=== PATIENT | male | born 1950 | race Caucasian/White ===

== ENCOUNTER 2020-04-17 14:22 | Inpatient (IN) | payer BC, MEDICARE ==
[~2020-04-17] VITALS: Ht 167 cm; Wt 104.5 kg
--- NOTE | 2020-04-17 15:19 | ED Dyspnea ---
General Stated Complaint: COVID +, SOB Source of Information: Patient Exam Limitations: No Limitations History of Present Illness Date Seen by Provider: Apr 17, 2020 Time Seen by Provider: 15:16 Initial Comments This is a 69-year-old male to ER by private vehicle with reports of being Covid positive and shortness of breath. This gentleman is otherwise healthy, he became symptomatic on 04/06/2020. He reports a persistent cough starting about 3 days ago. On arrival his oxygen saturation is 82% on room air. Timing/Duration: Increasing Severity: Moderate Prior Episodes/Possible Cause: No Prior Episodes Modifying Factors: Improves With Coughing Associated Symptoms: Denies Symptoms Allergies and Home Medications Patient Home Medication List Home Medication List Reviewed: Yes Review of Systems Review of Systems Constitutional: see HPI EENTM: see HPI Respiratory: see HPI, cough, short of breath Cardiovascular: no symptoms reported Genitourinary: no symptoms reported Musculoskeletal: no symptoms reported Skin: no symptoms reported Psychiatric/Neurological: No Symptoms Reported Endocrine: No Symptoms Reported Past Gtzmbdu-Tyvlov-Mbqlgg Hx Patient Social History Recent Foreign Travel: No Contact w/Someone Who Travel: No Physical Exam Vital Signs Vital Signs - First Documented 04/17/20 15:10 Temp 36.8 Pulse 94 Resp 36 B/P (MAP) 164/97 (119) Pulse Ox 94 O2 Delivery Nasal Cannula O2 Flow Rate 2.00 Capillary Refill : Height, Weight, BMI Height: '" Weight: lbs. oz. kg; BMI Method: General Appearance: No Apparent Distress, WD/WN, Other (Alert and oriented very pleasant. No distress despite oxygen saturation of 82% with good waveform) HEENT: PERRL/EOMI, TMs Normal Neck: Full Range of Motion, Normal Inspection Respiratory: No Accessory Muscle Use, No Respiratory Distress Cardiovascular: Regular Rate, Rhythm, Normal Peripheral Pulses Gastrointestinal: Normal Bowel Sounds, Non Tender, Soft Neurologic/Psychiatric: Alert, Oriented x3 Skin: Normal Color, Warm/Dry Progress/Results/Core Measures Results/Orders Lab Results Laboratory Tests Test 04/17/20 15:20 Range/Units White Blood Count 10.5 4.3-11.0 10^3/uL Red Blood Count 3.77 L 4.30-5.52 10^6/uL Hemoglobin 12.2 L 13.3-17.7 g/dL Hematocrit 36 L 40-54 % Mean Corpuscular Volume 94 80-99 fL Mean Corpuscular Hemoglobin 32 25-34 pg Mean Corpuscular Hemoglobin Concent 34 32-36 g/dL Red Cell Distribution Width 12.5 10.0-14.5 % Platelet Count 163 130-400 10^3/uL Mean Platelet Volume 10.3 9.0-12.2 fL Immature Granulocyte % (Auto) 1 % Neutrophils (%) (Auto) 83 H 42-75 % Lymphocytes (%) (Auto) 8 L 12-44 % Monocytes (%) (Auto) 9 0-12 % Eosinophils (%) (Auto) 0 0-10 % Basophils (%) (Auto) 0 0-10 % Neutrophils # (Auto) 8.7 H 1.8-7.8 10^3/uL Lymphocytes # (Auto) 0.8 L 1.0-4.0 10^3/uL Monocytes # (Auto) 0.9 0.0-1.0 10^3/uL Eosinophils # (Auto) 0.0 0.0-0.3 10^3/uL Basophils # (Auto) 0.0 0.0-0.1 10^3/uL Immature Granulocyte # (Auto) 0.1 0.0-0.1 10^3/uL D-Dimer 1.23 H 0.00-0.49 UG/ML Sodium Level 141 135-145 MMOL/L Potassium Level 3.6 3.6-5.0 MMOL/L Chloride Level 108 H 98-107 MMOL/L Carbon Dioxide Level 21 21-32 MMOL/L Anion Gap 12 5-14 MMOL/L Blood Urea Nitrogen 25 H 7-18 MG/DL Creatinine 1.47 H 0.60-1.30 MG/DL Estimat Glomerular Filtration Rate 47 BUN/Creatinine Ratio 17 Glucose Level 108 H 70-105 MG/DL Calcium Level 9.0 8.5-10.1 MG/DL Corrected Calcium 8.9 8.5-10.1 MG/DL Total Bilirubin 0.7 0.1-1.0 MG/DL Aspartate Amino Transf (AST/SGOT) 84 H 5-34 U/L Alanine Aminotransferase (ALT/SGPT) 56 H 0-55 U/L Alkaline Phosphatase 115 40-136 U/L C-Reactive Protein High Sensitivity 2.60 H 0.00-0.50 MG/DL Total Protein 7.9 6.4-8.2 GM/DL Albumin 4.1 3.2-4.5 GM/DL My Orders Orders - MATHEW TORRES APRN Cbc With Automated Diff (04/17/20 15:15) Comprehensive Metabolic Panel (04/17/20 15:15) Fibrin Degradation Products (04/17/20 15:15) Hs C Reactive Protein (04/17/20 15:15) Procalcitonin (Pct) (04/17/20 15:15) Chest 1 View, Ap/Pa Only (04/17/20 15:15) Ed Iv/Invasive Line Start (04/17/20 15:15) Manual Differential (04/17/20 15:20) Vital Signs/I&O 04/17/20 15:10 Temp 36.8 Pulse 94 Resp 36 B/P (MAP) 164/97 (119) Pulse Ox 94 O2 Delivery Nasal Cannula O2 Flow Rate 2.00 Diagnostic Imaging Diagonstic Imaging: CT Comments NAME: JULIETA HUFF [facility] REC#: [id number] PT STATUS: REG ER : 1950 PHYSICIAN: MATHEW TORRES APRN ADMIT DATE: 04/17/20/ER Draft Date of Exam:04/17/20 CHEST 1 VIEW, AP/PA ONLY INDICATION: Covid positive. TIME OF EXAM: 3:56 p.m. COMPARISON: No prior study is available for comparison. FINDINGS: The heart size is normal. The pulmonary vascularity is unremarkable. The lungs are clear. No infiltrate, effusion or pneumothorax is detected. IMPRESSION: No acute cardiopulmonary process is detected. Dictated on workstation # [id number] Dict: 04/17/20 1609 Trans: 04/17/20 1612 [facility] [id number] Interpreted by: ROSEY GUILLEN MD Electronically signed by: Departure Impression Primary Impression: Hypoxia Additional Impression: COVID-19 Disposition: ADMITTED INPATIENT Condition: Stable Admissions Decision to Admit Reason: Admit from ER (General) Decision to Admit/Date: Apr 17, 2020 Time/Decision to Admit Time: 15:20 MATHEW TORRES APRN Apr 17, 2020 15:19
[2020-04-17 15:37] LABS: BASOPHILS % (AUTO) 0 % (0-10); EOSINOPHILS % (AUTO) 0 % (0-10); HEMATOCRIT 36 % (40-54); HEMOGLOBIN 12.2 g/dL (13.3-17.7); LYMPHOCYTES # (AUTO) 0.8 10^3/uL (1.0-4.0); LYMPHOCYTES % (AUTO) 8 % (12-44); MEAN CORPUSCULAR HEMOGLOBIN 32 pg (25-34); MEAN CORPUSCULAR HGB CONC 34 g/dL (32-36); MEAN CORPUSCULAR VOLUME 94 fL (80-99); MEAN PLATELET VOLUME 10.3 fL (9.0-12.2); MONOCYTES # (AUTO) 0.9 10^3/uL (0.0-1.0); MONOCYTES % (AUTO) 9 % (0-12); NEUTROPHILS # (AUTO) 8.7 10^3/uL (1.8-7.8); NEUTROPHILS % (AUTO) 83 % (42-75); PLATELET COUNT 163 10^3/uL (130-400); WHITE BLOOD COUNT 10.5 10^3/uL (4.3-11.0)
[2020-04-17 15:50] LABS: ALBUMIN 4.1 GM/DL (3.2-4.5); POTASSIUM 3.6 MMOL/L (3.6-5.0)
[2020-04-17 15:53] LABS: TOTAL PROTEIN 7.9 GM/DL (6.4-8.2)
[2020-04-17 15:54] LABS: BILIRUBIN,TOTAL 0.7 MG/DL (0.1-1.0)
[2020-04-17 15:56] LABS: CREATININE SERUM 1.47 MG/DL (0.60-1.30)
--- NOTE | 2020-04-17 16:12 | Diagnostic Imaging Report ---
INDICATION: Covid positive. TIME OF EXAM: 3:56 p.m. COMPARISON: No prior study is available for comparison. FINDINGS: The heart size is normal. The pulmonary vascularity is unremarkable. The lungs are clear. No infiltrate, effusion or pneumothorax is detected. IMPRESSION: No acute cardiopulmonary process is detected. Dictated by: Dictated on workstation # [id number]
[2020-04-17 16:15] LABS: LYMPHOCYTES % (MANUAL) 9 %; MONOCYTES % (MANUAL) 8 %; NEUTROPHILS % (MANUAL) 83 %; PLATELET CLUMPS SLIGHT; RBC MORPH NORMAL
[2020-04-17 18:30] VITALS: BP 164/90
[2020-04-17 18:31] VITALS: BP 164/90
[2020-04-17] MEDS ORDERED: LACTATED RINGERS 0 ML IV ONE (18:36)
[2020-04-17] MEDS ORDERED: LACTATED RINGERS 1,000 ML IV ONE (19:47)
[2020-04-17] MEDS: inSUlin ASPART (NovoLOG) 1 UNIT/0.01 ML (CHARGE PER UNIT) SC SCH (20:01)
[2020-04-17 20:28] VITALS: BP 160/95
[2020-04-17] MEDS ORDERED: ACETAMINOPHEN 325 MG TABLET ONE (20:56)
[2020-04-17] MEDS ORDERED: ONDANSETRON 4 MG/2 ML (SDV) Z0FRAN IV PRN (21:00)
[2020-04-17] MEDS ORDERED: ANTACID SUSP 30 ML UDC (MYLANTA) PO PRN (21:00)
[2020-04-17] MEDS ORDERED: MILK OF MAGNESIA 400 MG/5 ML 30 ML UDC PO PRN (21:00)
[2020-04-17] MEDS: ACETAMINOPHEN 325 MG TABLET PO PRN (21:09)
[2020-04-17] MEDS: ENOXAPARIN 80 MG/0.8 ML (LOVENOX) SYR SC SCH (21:11)
[2020-04-17] MEDS ORDERED: LACTATED RINGERS 1,000 ML IV SCH (21:15)
[2020-04-17 23:19] VITALS: BP 112/71
[2020-04-18] MEDS ORDERED: LISI10TA2 PO (01:16)
[2020-04-18] MEDS ORDERED: SIMV10TA26 PO (01:16)
[2020-04-18] MEDS ORDERED: OMEP40CA27 PO (01:16)
[2020-04-18] MEDS ORDERED: LEVO50TA6 PO (01:16)
[2020-04-18] MEDS ORDERED: HYDR25TA4 PO (01:16)
[2020-04-18 03:28] VITALS: BP 131/78
[2020-04-18 04:16] LABS: BASOPHILS % (AUTO) 0 % (0-10); EOSINOPHILS % (AUTO) 0 % (0-10); HEMATOCRIT 31 % (40-54); HEMOGLOBIN 10.4 g/dL (13.3-17.7); LYMPHOCYTES # (AUTO) 0.9 10^3/uL (1.0-4.0); LYMPHOCYTES % (AUTO) 11 % (12-44); MEAN CORPUSCULAR HEMOGLOBIN 32 pg (25-34); MEAN CORPUSCULAR HGB CONC 34 g/dL (32-36); MEAN CORPUSCULAR VOLUME 95 fL (80-99); MEAN PLATELET VOLUME 10.6 fL (9.0-12.2); MONOCYTES # (AUTO) 0.6 10^3/uL (0.0-1.0); MONOCYTES % (AUTO) 8 % (0-12); NEUTROPHILS # (AUTO) 6.4 10^3/uL (1.8-7.8); NEUTROPHILS % (AUTO) 80 % (42-75); PLATELET COUNT 150 10^3/uL (130-400)
[2020-04-18 04:39] LABS: ALBUMIN 3.4 GM/DL (3.2-4.5)
[2020-04-18 04:41] LABS: CALCIUM 8.5 MG/DL (8.5-10.1)
[2020-04-18 04:42] LABS: TOTAL PROTEIN 6.7 GM/DL (6.4-8.2)
[2020-04-18 04:43] LABS: BILIRUBIN,TOTAL 0.6 MG/DL (0.1-1.0)
[2020-04-18 04:45] LABS: CREATININE SERUM 1.43 MG/DL (0.60-1.30)
[2020-04-18] MEDS: inSUlin ASPART (NovoLOG) 1 UNIT/0.01 ML (CHARGE PER UNIT) SC SCH ×4 (04:57→19:54)
[2020-04-18] MEDS: dexAMETHasone 6 MG TAB (DECADRON) PO SCH (05:54)
--- NOTE | 2020-04-18 06:00 | History & Physical-Hospitalist ---
History of Present Illness HPI/Chief Complaint Pt is a 69yoCM with a PMH of HTN, HLD, and hypothyroidism who presented to the ER due to dyspnea and known COVID19. He states that his symptoms started around 04/06 and he was actually feeling better a few days ago but then they worsened. He reports fevers, diarrhea, and SOB with cough. He denies any loss of taste/smell or nausea. He was found to be satting 82% of arrival. He reports feeling ok this morning. He was placed on prednisone and azithromycin on 04/15. Source: patient Date Seen 04/18/20 Time Seen by a Provider: 05:40 Attending Physician Rogelio Ponce MD PCP Shahana Pollard MD Referring Physician Date of Admission Apr 17, 2020 at 16:47 Home Medications & Allergies Home Medications Reviewed patient Home Medication Reconciliation performed by pharmacy medication reconciliations shop service technician and/or nursing. Patients Allergies have been reviewed. Allergies Allergies Coded Allergies Sulfa (Sulfonamide Antibiotics) (Verified Allergy, Unknown, 04/17/20) Past Futpcfz-Sslsfq-Yoopci Hx Past Med/Social Hx: Reviewed Nursing Past Med/Soc Hx Patient Social History Marrital Status: Alcohol Use: Denies Use Recreational Drug Use: No Smoking Status: Never a Smoker Recent Foreign Travel: No Contact w/other who traveled: No Recent Hopitalizations: No Recent Infectious Disease Expo: No Immunizations Up To Date Date of Influenza Vaccine: Feb 15, 2020 Past Medical History Cardiac: High Cholesterol, Hypertension Endocrine: Hypothyroidsim Review of Systems Constitutional: fever, malaise EENTM: no symptoms reported Respiratory: see HPI Cardiovascular: No chest pain, No edema, No palpitations Gastrointestinal: No abdominal pain; diarrhea; No nausea Genitourinary: no symptoms reported Musculoskeletal: no symptoms reported Skin: no symptoms reported Psychiatric/Neurological: No Symptoms Reported Physical Exam Physical Exam Vital Signs Vital Signs - First Documented Capillary Refill : NONE Height, Weight, BMI Height: '" Weight: lbs. oz. kg; 30.11 BMI Method: General Appearance: No Apparent Distress, WD/WN HEENT: PERRL/EOMI, Moist Mucous Membranes; No Scleral Icterus (L), No Scleral Icterus (R) Neck: Normal Inspection, Supple Respiratory: Lungs Clear, No Accessory Muscle Use; No Crackles; Other (on 2lpm NC) Cardiovascular: Regular Rate, Rhythm, No Murmur Gastrointestinal: Normal Bowel Sounds, Non Tender, Soft Extremity: Normal Capillary Refill, No Calf Tenderness, No Pedal Edema Neurologic/Psychiatric: Alert, Oriented x3 Skin: Normal Color, Warm/Dry Results Results/Procedures Labs Laboratory Tests 04/17/20 15:20 04/18/20 03:23 Patient resulted labs reviewed. Imaging: Reviewed Imaging Report Imaging [facility] [place] NAME: JULIETA HUFF [facility] REC#: [id number] PT STATUS: REG ER : 1950 PHYSICIAN: MATHEW TORRES APRN ADMIT DATE: 04/17/20/ER Signed Date of Exam:04/17/20 CHEST 1 VIEW, AP/PA ONLY INDICATION: Covid positive. TIME OF EXAM: 3:56 p.m. COMPARISON: No prior study is available for comparison. FINDINGS: The heart size is normal. The pulmonary vascularity is unremarkable. The lungs are clear. No infiltrate, effusion or pneumothorax is detected. IMPRESSION: No acute cardiopulmonary process is detected. Dictated by: Dictated on workstation # [id number] Dict: 04/17/20 1609 Trans: 04/17/[address] [facility] [id number] Interpreted by: ROSEY GUILLEN MD Electronically signed by: ROSEY GUILLEN MD 04/17/20 1709 Assessment/Plan Admission Diagnosis Acute hypoxic respiratory failure due to COVID19 Admission Status: Inpatient Order (span 2 midnights) Reason for Inpatient Admission: see below Assessment and Plan Acute hypoxic respiratory failure due to COVID19 Outside of window for remdesivir Continue decadron CP ordered by ER, EUA status discussed MAT protocol Lovenox Tylenol prn fever IS Transaminitis Likely due to COVID Trend HTN Creatine 1.4 with BUn of 27 Unsure of baseline BP well controlled so hold home lisinopril and hctz for now HLD No acute needs, resume home meds Hypothyroidism Continue home meds DVT ppx: Lovenox Diagnosis/Problems Diagnosis/Problems (1) Acute respiratory failure (2) HLD (hyperlipidemia) (3) Hyperglycemia (4) Hypothyroidism (5) Transaminitis (6) COVID-19 Status: Acute Clinical Quality Measures DVT/VTE Risk/Contraindication: Risk Factor Score Per Nursin RFS Level Per Nursing on Admit: 2=Moderate ROGELIO PONCE MD Apr 18, 2020 06:00
[2020-04-18 07:48] VITALS: BP 162/90
[2020-04-18] MEDS: LEVOTHYROXINE 50 MCG (LEVOTHROID) TAB PO SCH (07:55)
[2020-04-18] MEDS: ENOXAPARIN 80 MG/0.8 ML (LOVENOX) SYR SC SCH ×2 (07:55→20:27)
[2020-04-18] MEDS ORDERED: SIMvastatin 10 MG (ZOCOR) TAB PO SCH (09:00)
[2020-04-18 10:31] VITALS: BP 162/90
[2020-04-18 12:00] VITALS: BP 145/85
[2020-04-18 15:48] VITALS: BP 138/83
[2020-04-18 19:07] VITALS: BP 144/81
[2020-04-19] MEDS: RT-ALBUTEROL INHALER HFA (VENTOLIN HFA) 18 GM IH PRN ×2 (00:01→07:12)
[2020-04-19 00:02] VITALS: BP 157/87
[2020-04-19] MEDS: inSUlin ASPART (NovoLOG) 1 UNIT/0.01 ML (CHARGE PER UNIT) SC SCH ×4 (05:10→21:07)
[2020-04-19] MEDS: dexAMETHasone 6 MG TAB (DECADRON) PO SCH (05:58)
[2020-04-19 07:32] LABS: HEMOGLOBIN 10.1 g/dL (13.3-17.7); MEAN PLATELET VOLUME 11.1 fL (9.0-12.2)
[2020-04-19 07:45] VITALS: BP 108/67
[2020-04-19 07:53] LABS: ALBUMIN 3.5 GM/DL (3.2-4.5); POTASSIUM 3.7 MMOL/L (3.6-5.0)
[2020-04-19 07:54] LABS: CALCIUM 8.7 MG/DL (8.5-10.1)
[2020-04-19 07:56] LABS: TOTAL PROTEIN 6.9 GM/DL (6.4-8.2)
[2020-04-19 07:57] LABS: BILIRUBIN,TOTAL 0.5 MG/DL (0.1-1.0)
[2020-04-19 07:59] LABS: CREATININE SERUM 1.23 MG/DL (0.60-1.30)
[2020-04-19] MEDS: LEVOTHYROXINE 50 MCG (LEVOTHROID) TAB PO SCH (08:14)
[2020-04-19] MEDS: ENOXAPARIN 80 MG/0.8 ML (LOVENOX) SYR SC SCH ×2 (08:14→22:02)
[2020-04-19 16:21] VITALS: BP 141/79
--- NOTE | 2020-04-19 16:31 | Progress Note - Hospitalist ---
Subjective HPI/CC On Admission Date Seen by Provider: Apr 19, 2020 Time Seen by Provider: 11:20 Pt is a 69yoCM with a PMH of HTN, HLD, and hypothyroidism who presented to the ER due to dyspnea and known COVID19. He states that his symptoms started around 04/06 and he was actually feeling better a few days ago but then they worsened. He reports fevers, diarrhea, and SOB with cough. He denies any loss of taste/smell or nausea. He was found to be satting 82% of arrival. He reports feeling ok this morning. He was placed on prednisone and azithromycin on 04/15. Subjective/Events-last exam he is feeling a bit better today. He is still short of breath. He still has a lot of a cough. He is not having any fevers. He has not had much of an appetite. Objective Exam Vital Signs Vital Signs Date Time Temp Pulse Resp B/P (MAP) Pulse Ox O2 Delivery O2 Flow Rate FiO2 04/19/20 16:21 36.9 74 20 141/79 (99) 94 Nasal Cannula 4.00 Capillary Refill : NONE General Appearance: No Apparent Distress, Obese Respiratory: Lungs Clear, Normal Breath Sounds, No Respiratory Distress Cardiovascular: Regular Rate, Rhythm, No Edema, No Murmur Gastrointestinal: Normal Bowel Sounds, Non Tender, Soft Extremity: Normal Inspection, Non Tender, No Pedal Edema Neurologic/Psychiatric: Alert, Oriented x3, No Motor/Sensory Deficits, Normal Mood/Affect Skin: Normal Color, Warm/Dry Results/Procedures Lab Laboratory Tests 04/19/20 06:29 Patient resulted labs reviewed. Imaging: Reviewed Imaging Report Assessment/Plan Assessment and Plan Assess & Plan/Chief Complaint Acute respiratory failure due to COVID-19 Continue decadron Awaiting convalescent plasma MAT protocol Lovenox IS Elevated LFTs Likely due to COVID Improving LIMA vs CKD Creatinine 1.2, improving, unknown baseline HTN BP well controlled, hold home meds HLD Hypothyroidism Continue home meds DVT ppx: Lovenox Diagnosis/Problems Diagnosis/Problems (1) Acute respiratory failure due to COVID-19 Status: Acute (2) Elevated LFTs Status: Acute (3) HTN (hypertension) Status: Chronic Qualifiers: Hypertension type: essential hypertension Qualified Codes: I10 - Essential (primary) hypertension (4) CKD (chronic kidney disease) Status: Chronic (5) Obesity Status: Chronic Clinical Quality Measures DVT/VTE Risk/Contraindication: Risk Factor Score Per Nursin RFS Level Per Nursing on Admit: 2=Moderate DEQUAN OVERTON MD Apr 19, 2020 16:31
[2020-04-19] MEDS: BENZONATATE 100 MG (TESSALON) CAPSULE PO PRN (22:01)
[2020-04-20] VITALS: BP 131/78
[2020-04-20] MEDS: inSUlin ASPART (NovoLOG) 1 UNIT/0.01 ML (CHARGE PER UNIT) SC SCH ×4 (05:52→20:00)
[2020-04-20] MEDS: dexAMETHasone 6 MG TAB (DECADRON) PO SCH (06:33)
[2020-04-20 08:00] VITALS: BP 145/73
[2020-04-20] MEDS: ENOXAPARIN 80 MG/0.8 ML (LOVENOX) SYR SC SCH ×2 (09:30→20:38)
[2020-04-20] MEDS: LEVOTHYROXINE 50 MCG (LEVOTHROID) TAB PO SCH (09:30)
[2020-04-20] MEDS ORDERED: ASPI-1238 PO (11:41)
[2020-04-20] MEDS ORDERED: AZIT500T9 PO (11:41)
[2020-04-20] MEDS ORDERED: ASCO500T17 PO (11:41)
[2020-04-20] MEDS ORDERED: PRD10T PO (11:41)
[2020-04-20] MEDS ORDERED: CHOL200074 PO (11:41)
--- NOTE | 2020-04-20 11:42 | NUR ---
SPOKE WITH THE PT (CALLED HIS CELL) AND WENT THRU THE EXT MED HISTORY TO COMPLETE THE MED REC ACCORDING TO THE PT ON 04-15-2020 HE PICKED UP PREDNISONE 10MG AND AZITHROMYCIN 500MG AND ONLY TOOK 2 DAYS WORTH BEFORE BEING ADMITTED. PREDNISONE 10MG TAPER DOSE: 4 TABS DAILY X 3 DAYS, 3 TABS DAILY X 3 DAYS, THEN 1 TAB DAILY X 3 DAYS OTC MEDS: VIT C VIT D3 ASPIRIN 81MG
[2020-04-20 15:26] VITALS: BP 136/81
[2020-04-20] MEDS: BENZONATATE 100 MG (TESSALON) CAPSULE PO PRN (15:33)
--- NOTE | 2020-04-20 16:01 | Progress Note - Hospitalist ---
Subjective HPI/CC On Admission Date Seen by Provider: Apr 20, 2020 Time Seen by Provider: 11:00 Pt is a 69yoCM with a PMH of HTN, HLD, and hypothyroidism who presented to the ER due to dyspnea and known COVID19. He states that his symptoms started around 04/06 and he was actually feeling better a few days ago but then they worsened. He reports fevers, diarrhea, and SOB with cough. He denies any loss of taste/smell or nausea. He was found to be satting 82% of arrival. He reports feeling ok this morning. He was placed on prednisone and azithromycin on 04/15. Subjective/Events-last exam He is doing better today. He did walk to the bathroom without his oxygen and got very short of breath and dizzy. He thinks his appetite is returning. He has been eating and drinking. He has no other complaints or concerns. Objective Exam Vital Signs Vital Signs Date Time Temp Pulse Resp B/P (MAP) Pulse Ox O2 Delivery O2 Flow Rate FiO2 04/20/20 15:26 36.3 66 18 136/81 (99) 95 Nasal Cannula 4.00 Capillary Refill : NONE General Appearance: No Apparent Distress, Obese Respiratory: Lungs Clear, Normal Breath Sounds, No Respiratory Distress Cardiovascular: Regular Rate, Rhythm, No Edema, No Murmur Gastrointestinal: Normal Bowel Sounds, Non Tender, Soft Extremity: Normal Inspection, Non Tender, No Pedal Edema Neurologic/Psychiatric: Alert, Oriented x3, No Motor/Sensory Deficits, Normal Mood/Affect Skin: Normal Color, Warm/Dry Results/Procedures Lab Patient resulted labs reviewed. Imaging: Reviewed Imaging Report Assessment/Plan Assessment and Plan Assess & Plan/Chief Complaint Acute respiratory failure due to COVID-19 Continue decadron Awaiting convalescent plasma MAT protocol Lovenox IS Elevated LFTs Likely due to COVID Improving LIMA vs CKD Creatinine improving, unknown baseline HTN BP well controlled, hold home meds HLD Hypothyroidism Continue home meds DVT ppx: Lovenox Diagnosis/Problems Diagnosis/Problems (1) Acute respiratory failure due to COVID-19 Status: Acute (2) Elevated LFTs Status: Acute (3) HTN (hypertension) Status: Chronic Qualifiers: Hypertension type: essential hypertension Qualified Codes: I10 - Essential (primary) hypertension (4) CKD (chronic kidney disease) Status: Chronic (5) Obesity Status: Chronic Clinical Quality Measures DVT/VTE Risk/Contraindication: Risk Factor Score Per Nursin RFS Level Per Nursing on Admit: 2=Moderate DEQUAN OVERTON MD Apr 20, 2020 16:00
[2020-04-21 00:05] VITALS: BP 139/79
[2020-04-21] MEDS: dexAMETHasone 6 MG TAB (DECADRON) PO SCH (05:35)
[2020-04-21] MEDS: inSUlin ASPART (NovoLOG) 1 UNIT/0.01 ML (CHARGE PER UNIT) SC SCH ×4 (06:16→20:04)
[2020-04-21 06:43] LABS: BASOPHILS % (AUTO) 0 % (0-10); EOSINOPHILS % (AUTO) 0 % (0-10); HEMATOCRIT 31 % (40-54); HEMOGLOBIN 10.4 g/dL (13.3-17.7); LYMPHOCYTES # (AUTO) 0.4 10^3/uL (1.0-4.0); LYMPHOCYTES % (AUTO) 4 % (12-44); MEAN CORPUSCULAR HEMOGLOBIN 32 pg (25-34); MEAN CORPUSCULAR HGB CONC 34 g/dL (32-36); MEAN CORPUSCULAR VOLUME 94 fL (80-99); MEAN PLATELET VOLUME 10.4 fL (9.0-12.2); MONOCYTES # (AUTO) 0.7 10^3/uL (0.0-1.0); MONOCYTES % (AUTO) 7 % (0-12); NEUTROPHILS # (AUTO) 8.2 10^3/uL (1.8-7.8); NEUTROPHILS % (AUTO) 88 % (42-75); PLATELET COUNT 196 10^3/uL (130-400); WHITE BLOOD COUNT 9.4 10^3/uL (4.3-11.0)
[2020-04-21 06:59] LABS: ALBUMIN 3.3 GM/DL (3.2-4.5); POTASSIUM 3.9 MMOL/L (3.6-5.0)
[2020-04-21 07:00] LABS: CALCIUM 8.4 MG/DL (8.5-10.1)
[2020-04-21 07:01] LABS: TOTAL PROTEIN 6.7 GM/DL (6.4-8.2)
[2020-04-21 07:03] LABS: BILIRUBIN,TOTAL 0.5 MG/DL (0.1-1.0)
[2020-04-21 07:05] LABS: CREATININE SERUM 1.32 MG/DL (0.60-1.30)
[2020-04-21 08:00] VITALS: BP 141/84
[2020-04-21] MEDS: LEVOTHYROXINE 50 MCG (LEVOTHROID) TAB PO SCH (09:21)
[2020-04-21] MEDS: ENOXAPARIN 80 MG/0.8 ML (LOVENOX) SYR SC SCH ×2 (09:21→20:54)
[2020-04-21] MEDS: BENZONATATE 100 MG (TESSALON) CAPSULE PO PRN (09:24)
--- NOTE | 2020-04-21 13:36 | Occupational Therapy Eval ---
OT Evaluation-General/PLF Medical Diagnosis Admission Date Apr 17, 2020 at 16:47 Medical Diagnosis: COVID+, hypoxia Onset Date: Apr 06, 2020 Therapy Diagnosis Therapy Diagnosis: weakness, decreased functional endurance Precautions Precautions/Isolations: Airborne Isolation, Contact Isolation, Droplet Isolation Referral Physician: Eneida Velásquez Reason: Evaluation/Treatment Medical History Pertinent Medical History: HTN, Hypothroidism Additional Medical History HTN, HLD, and hypothyroidism Current History Began having COVID symptoms 04/06/2020. Social History Home: Multilevel Current Living Status: Spouse ADL-Prior Level of Function SCALE: Activities may be completed with or without assistive devices. 9-Pdiciiueuv-pahkqbn completes the activity by him/herself with no assistance from a helper. 5-Set-up or Clean-up Assistance-helper sets up or cleans up; patient completes activity. Briggs assists only prior to or following the activity. 4-Supervision or Touching Assistance-helper provides verbal cues and/or touc arthur/steadying and/or contact guard assistance as patient completes activity. Assistance may be provided throughout the activity or intermittently. 3-Partial/Moderate Assistance-helper does LESS THAN HALF the effort. Briggs lifts, holds or supports trunk or limbs, but provides less than half the effort. 2-Substantial/Maximal Assistance-helper does MORE THAN HALF the effort. Briggs lifts or holds trunk or limbs and provides more than half the effort. 6-Ulxkiqsjb-vghgzp does ALL the effort. Patient does none of the effort to complete the activity. Or, the assistance of 2 or more helpers is required for the patient to complete the activity. If activity was not attempted, code reason: 7-Patient Refused. 9-Not Applicable-not attempted and the patient did not perform the activity before the current illness, exacerbation or injury. 10-Not Attempted due to Environmental Limitations-(lack of equipment, weather restraints, etc.). 88-Not Attempted due to Medical Conditions or Safety Concerns. ADL PLOF Comments Pt reports being independent with all ADLS and functional mobility at PLOF, no AD/AE Self Care: Independent Functional Cognition: Independent DME/Equipment: Bath Chair, Shower OT Current Status Subjective Pt agreeable to OT evaluation and tx. Mental Status/Objective Patient Orientation: Person, Place, Time, Situation Attachments: Oxygen Current Upper Extremity ROM WFL BUEs Upper Extremity Coordination WFL BUEs Upper Extremity Sensation WFL BUEs ADL-Treatment On/Off Footwear (QC): 6 Other Treatments Pt laying in bed, OT educated pt on purpose and benefit of OT, he verbalized und erstanding. Pt provided information about PLOF and home set up and participates in UE screening. Pt transfers supine to sit EOB, then ambulates around room to recliner, no AD, SBA. Pt able to don shoes independently. Pt declined toileting at this time. OT educated pt on performing UE exercises, increasing reps as tolerated for the following: shoulder flexion, elbow flexion/extension, wrist flexion/extension, wrist ulnar/radial deviation, and finger flexion/extension. Pt demo'd and verbalized understanding.Post tx, seated in recliner, call light in reach and all needs met. Education OT Patient Education: Correct positioning, Modified ADL techniques, Progress toward Goal/Update tx plan, Purpose of tx/functional activities, Rehab process Teaching Recipient: Patient Teaching Methods: Demonstration, Discussion Response to Teaching: Verbalize Understanding, Return Demonstration OT Gravel Inspector Goals Gravel Inspector Goals Time Frame: Apr 30, 2020 Eating (QC): 6 Oral Hygiene (QC): 6 Toileting Hygiene (QC): 6 Shower/Bathe Self (QC): 6 Upper Body Dressing (QC): 6 Lower Body Dressing (QC): 6 Additional Goals: 1-Demonstrate ADL Tasks, 2-Verbalize Understanding, 3- ImproveStrength/Gayle 1=Demonstrate adherence to instructed precautions during ADL tasks. 2=Patient will verbalize/demonstrate understanding of assistive devices/modifications for ADL. 3=Patient will improve strength/tolerance for activity to enable patient to perform ADL's. OT Education/Plan Problem List/Assessment Assessment: Decreased Activ Tolerance, Decreased UE Strength, Impaired I ADL's Pt would benefit from short term skilled OT services in order to increase functional endurance and strength to maximize LOF for safe return home. Discharge Recommendations Plan/Recommendations: Continue POC Therapy Discharge Recommendati: Home & Family Treatment Plan/Plan of Care Patient would benefit from OT for education, treatment and training to promote independence in ADL's, mobility, safety and/or upper extremity function for ADL's. Plan of Care: ADL Retraining, Functional Mobility, UE Funct Exercise/Act Treatment Duration: Apr 30, 2020 Frequency: 5 times per week Estimated Hrs Per Day: .25 hour per day Agreement: Yes Rehab Potential: Good Time/GCodes Start Time: 11:57 Stop Time: 12:09 Total Time Billed (hr/min): 12 Billed Treatment Time 1, KRYSTAL LUBIN OT Apr 21, 2020 13:36
--- NOTE | 2020-04-21 13:59 | Progress Note - Hospitalist ---
Subjective HPI/CC On Admission Date Seen by Provider: Apr 21, 2020 Time Seen by Provider: 10:50 Pt is a 69yoCM with a PMH of HTN, HLD, and hypothyroidism who presented to the ER due to dyspnea and known COVID19. He states that his symptoms started around 04/06 and he was actually feeling better a few days ago but then they worsened. He reports fevers, diarrhea, and SOB with cough. He denies any loss of taste/smell or nausea. He was found to be satting 82% of arrival. He reports feeling ok this morning. He was placed on prednisone and azithromycin on 04/15. Subjective/Events-last exam He is feeling about the same. He did not sleep well last night. He still gets short of breath with activity. He denies fevers. Objective Exam Vital Signs Vital Signs Date Time Temp Pulse Resp B/P (MAP) Pulse Ox O2 Delivery O2 Flow Rate FiO2 04/21/20 08:00 36.6 55 18 141/84 (103) 93 Nasal Cannula 4.00 Capillary Refill : NONE General Appearance: No Apparent Distress, WD/WN Respiratory: Lungs Clear, Normal Breath Sounds, No Respiratory Distress Cardiovascular: Regular Rate, Rhythm, No Edema, No Murmur Gastrointestinal: Normal Bowel Sounds, Non Tender, Soft Extremity: Normal Inspection, Non Tender, No Pedal Edema Neurologic/Psychiatric: Alert, Oriented x3, No Motor/Sensory Deficits, Normal Mood/Affect Skin: Normal Color, Warm/Dry Results/Procedures Lab Laboratory Tests 04/21/20 06:21 Patient resulted labs reviewed. Imaging: Reviewed Imaging Report Assessment/Plan Assessment and Plan Assess & Plan/Chief Complaint Acute respiratory failure due to COVID-19 Continue decadron Awaiting convalescent plasma MAT protocol Lovenox IS Elevated LFTs Likely due to COVID Monitor CKD Creatinine stable, unknown baseline HTN BP well controlled, hold home meds HLD Hypothyroidism Continue home meds DVT ppx: Lovenox Diagnosis/Problems Diagnosis/Problems (1) Acute respiratory failure due to COVID-19 Status: Acute (2) Elevated LFTs Status: Acute (3) HTN (hypertension) Status: Chronic Qualifiers: Hypertension type: essential hypertension Qualified Codes: I10 - Essential (primary) hypertension (4) CKD (chronic kidney disease) Status: Chronic (5) Obesity Status: Chronic Clinical Quality Measures DVT/VTE Risk/Contraindication: Risk Factor Score Per Nursin RFS Level Per Nursing on Admit: 2=Moderate DEQUAN OVERTON MD Apr 21, 2020 13:59
--- NOTE | 2020-04-21 14:50 | Physical Therapy Evaluation ---
PT Evaluation-General Medical Diagnosis Admission Date Apr 17, 2020 at 16:47 Medical Diagnosis: COVID+, hypoxia Onset Date: Apr 06, 2020 Therapy Diagnosis Therapy Diagnosis: impaired mobility, endurance Precautions Precautions/Isolations: Airborne Isolation, Contact Isolation, Droplet Isolation Referral Physician: Eneida Medical History Pertinent Medical History: HTN, Hypothroidism Reviewed History: Yes Social History Home: [facility] Current Living Status: Spouse Entry Into Home: Stairs With Railing PT Steps Into Home: 4 has a bedroom upstairs Prior Prior Level of Function SCALE: Activities may be completed with or without assistive devices. 2-Qyxxeepiva-udgurev completes the activity by him/herself with no assistance from a helper. 5-Set-up or Clean-up Assistance-helper sets up or cleans up; patient completes activity. Roberta assists only prior to or following the activity. 4-Supervision or Touching Assistance-helper provides verbal cues and/or touching/steadying and/or contact guard assistance as patient completes activity. Assistance may be provided throughout the activity or intermittently. 3-Partial/Moderate Assistance-helper does LESS THAN HALF the effort. Roberta lifts, holds or supports trunk or limbs, but provides less than half the effort. 2-Substantial/Maximal Assistance-helper does MORE THAN HALF the effort. Roberta lifts or holds trunk or limbs and provides more than half the effort. 5-Yrbkmuoau-fufggr does ALL the effort. Patient does none of the effort to complete the activity. Or, the assistance of 2 or more helpers is required for the patient to complete the activity. If activity was not attempted, code reason: 7-Patient Refused. 9-Not Applicable-not attempted and the patient did not perform the activity before the current illness, exacerbation or injury. 10-Not Attempted due to Environmental Limitations-(lack of equipment, weather restraints, etc.). 88-Not Attempted due to Medical Conditions or Safety Concerns. Bed Mobility: 6 Transfers (B,C,W/C): 6 Gait: 6 Stairs: 6 Indoor Mobility (Ambulation): Independent Stairs: Independent PT Evaluation-Current Subjective Patient in bed pre tx, agrees to PT, has no complaints of pain at rest. Pt/Family Goals to be independent at home Objective Patient Orientation: Person, Place, Situation Attachments: Oxygen ROM/Strength ROM Lower Extremities WNL Strength Lower Extremities 5/5 gross BLE Sensory Vision: Wears Glasses Hearing: Sensation Right Lower Extremit: Intact Sensation Left Lower Extremity: Intact Transfers Roll Left to Right (QC): 6 Sit to Lying (QC): 6 Lying to Sitting/Side of Bed(Q: 6 Sit to Stand (QC): 4 Chair/Ygo-ut-Vowem Xfer(QC): 4 Gait Does the Patient Walk?: Yes Mode of Locomotion: Walk Anticipated Mode of Locomotion: Walk Walk 10 feet (QC): 4 Distance: 40' Gait Assistive Device: None Comments/Gait Description SBA, ambulation appears steady but patient says he feels slightly unsteady, SOB after ambulation but recovers quickly after sitting Balance Sitting Static: Normal Sitting Dynamic: Normal Standing Static: Normal Standing Dynamic: Good Assessment/Needs Patient has impaired mobility, endurance. Patient in bed post tx with nurse call, phone, tray, all needs met. Patient encouraged to get up on his own and ambulate in his room many times a day to keep his strength up. Rehab Potential: Fair PT Jail Goals Jail Goals PT Jail Goals Time Frame: Apr 28, 2020 Roll Left & Right (QC): 6 Sit to Lying (QC): 6 Lying-Sitting on Side/Bed(QC): 6 Sit to Stand (QC): 6 Chair/Dkr-al-Kuokx Xfer(QC): 6 Walk 10 feet (QC): 6 Walk 50ft with 2 Turns (QC): 6 Walk 150 ft (QC): 6 PT Plan Problem List Problem List: Activity Tolerance, Functional Strength, Safety, Balance, Gait, Transfer Treatment/Plan Treatment Plan: Continue Plan of Care Treatment Plan: Education, Functional Activity Gayle, Functional Strength, Gait, Safety, Therapeutic Exercise, Transfers Treatment Duration: Apr 28, 2020 Frequency: 6 times per week Estimated Hrs Per Day: .25 hour per day Patient and/or Family Agrees t: Yes Safety Risks/Education Patient Education: Gait Training, Transfer Techniques, Correct Positioning, Safety Issues Teaching Recipient: Patient Teaching Methods: Demonstration, Discussion Response to Teaching: Reinforcement Needed Discharge Recommendations Plan Patient will perform bed mobility and transfer training, balance and endurance training, functional strengthening, stair training, gait training, and education, to improve functional mobility and independence at home. Therapy Discharge Recommendati: Home & Family Time/GCodes Time In: 1415 Time Out: 142 Total Billed Treatment Time: 10 Total Billed Treatment 1 visit CHELA FRANCIS PT Apr 21, 2020 14:50
--- NOTE | 2020-04-21 15:20 | NUR ---
CM/SS: Visited with pt's spouse Yoselin in room (in Full PPE) due to COVID + status related to pts discharge plan. Pt is hard of hearing and this worker wanted to set up oxygen and home care for both at the same agencies and talked with spouse to determine location. Plan: Pt will be discharged to home possibly tomorrow. Spouse desires home care services. She has requested any local oxygen company except [facility]. Summary: Pt is awaiting a home oxygen study and will likely discharge on tomorrow. Spouse would like [facility] - as they have a daughter that works there, and no preference on the oxygen company, based on availability. Pt does have a ride home. This worker will follow up with Yoselin, spouse once more is known on the discharge plan.
--- NOTE | 2020-04-21 15:25 | NUR ---
PT UNABLE TO TOLERATE BEING ON RA OR STANDING UP/WALKING VERY WELL. TOOK A LONG TIME TO RECOVER FROM BOTH. PT NEEDS 4L VIA NC CONTINUOUSLY. Addendum: 04/21/20 at 1526 by CHAVA CHRISTIAN RT Amended: Links added.
[2020-04-21] MEDS ORDERED: PANTOPRAZOLE 40 MG (PROTONIX) TAB PO ONE (15:30)
[2020-04-21 16:27] VITALS: BP 165/84
[2020-04-21] MEDS ORDERED: guaiFENesin/DM (ROBITUSSIN DM) 10 ML UDC ONE (19:50)
[2020-04-21] MEDS: MELATONIN 3 MG TABLET PO PRN (20:55)
[2020-04-21] MEDS: guaiFENesin/DM (ROBITUSSIN DM) 10 ML UDC PO PRN (20:55)
[2020-04-21 23:50] VITALS: BP 144/68
[2020-04-22] MEDS: inSUlin ASPART (NovoLOG) 1 UNIT/0.01 ML (CHARGE PER UNIT) SC SCH ×4 (05:29→20:31)
[2020-04-22] MEDS: dexAMETHasone 6 MG TAB (DECADRON) PO SCH (05:44)
[2020-04-22 06:51] LABS: ALBUMIN 3.4 GM/DL (3.2-4.5); POTASSIUM 4.1 MMOL/L (3.6-5.0)
[2020-04-22 06:53] LABS: CALCIUM 8.6 MG/DL (8.5-10.1)
[2020-04-22 06:54] LABS: TOTAL PROTEIN 6.9 GM/DL (6.4-8.2)
[2020-04-22 06:55] LABS: BILIRUBIN,TOTAL 0.5 MG/DL (0.1-1.0)
[2020-04-22 06:57] LABS: CREATININE SERUM 1.32 MG/DL (0.60-1.30)
[2020-04-22 07:46] VITALS: BP 160/76
[2020-04-22] MEDS: PANTOPRAZOLE 40 MG (PROTONIX) TAB PO SCH (09:07)
[2020-04-22] MEDS: LEVOTHYROXINE 50 MCG (LEVOTHROID) TAB PO SCH (09:07)
[2020-04-22] MEDS: ENOXAPARIN 80 MG/0.8 ML (LOVENOX) SYR SC SCH ×2 (09:08→20:56)
--- NOTE | 2020-04-22 09:30 | NUR ---
[facility] NOTIFIED THIS RN OF PT OXYGEN 82% AFTER AMBULATING TO BATHROOM, PT SUSTAINING IN THE 80'S. RT BRINGING VAPOTHERM. PT WAS PLACED ON 10L HF UNTIL RT ARRIVES.
--- NOTE | 2020-04-22 09:50 | NUR ---
PT SP02 100% ON 40L 100% . RT TO WEAN PT DOWN.
--- NOTE | 2020-04-22 10:55 | NUR ---
CM/SS: Oxygen order faxed to [facility] in [place], [place]. phone [phone] fax [phone] They are able to deliver tank to the hospital prior to discharge.
[2020-04-22 11:07] VITALS: BP 138/78
--- NOTE | 2020-04-22 11:08 | NUR ---
CM/SS: Call to [facility] [phone] - to put the oxygen order on hold. Pt will not be leaving today due to changes in oxygen requirement.
--- NOTE | 2020-04-22 13:39 | Physical Therapy Daily Note ---
PT Daily Note-Current Subjective Patient in bed pre tx, agrees to PT, has no complaints of pain but says his breathing is worse. Appearance Patient in bed post tx with nurse call, OT in room to continue with patient. Mental Status Patient Orientation: Person, Place, Situation Attachments: Oxygen, IV vapotherm Transfers SCALE: Activities may be completed with or without assistive devices. 7-Rihrxwurdi-cobxksy completes the activity by him/herself with no assistance from a helper. 5-Set-up or Clean-up Assistance-helper sets up or cleans up; patient completes activity. Cordell assists only prior to or following the activity. 4-Supervision or Touching Assistance-helper provides verbal cues and/or touching/steadying and/or contact guard assistance as patient completes activity. Assistance may be provided throughout the activity or intermittently. 3-Partial/Moderate Assistance-helper does LESS THAN HALF the effort. Cordell lifts, holds or supports trunk or limbs, but provides less than half the effort. 2-Substantial/Maximal Assistance-helper does MORE THAN HALF the effort. Cordell lifts or holds trunk or limbs and provides more than half the effort. 4-Toqnzmywi-waqcnk does ALL the effort. Patient does none of the effort to complete the activity. Or, the assistance of 2 or more helpers is required for the patient to complete the activity. If activity was not attempted, code reason: 7-Patient Refused. 9-Not Applicable-not attempted and the patient did not perform the activity before the current illness, exacerbation or injury. 10-Not Attempted due to Environmental Limitations-(lack of equipment, weather restraints, etc.). 88-Not Attempted due to Medical Conditions or Safety Concerns. Roll Left & Right (QC): 6 Sit to Lying (QC): 6 Lying to Sitting/Side of Bed(Q: 6 Sit to Stand (QC): 6 Gait Training Distance: 20'x2 Walk 10 feet (QC): 4 Gait Assistive Device: None SBA, very SOB after ambulating, sits and performed purse lip breathing and it takes a long time to get back to 90% from about 85%. 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 Goals PT Penitentiary Goals Time Frame: Apr 28, 2020 Roll Left & Right (QC): 6 Sit to Lying (QC): 6 Lying-Sitting on Side/Bed(QC): 6 Sit to Stand (QC): 6 Chair/Msb-oe-Npmcm Xfer(QC): 6 Walk 10 feet (QC): 6 Walk 50ft with 2 Turns (QC): 6 Walk 150 ft (QC): 6 PT Plan Problem List Problem List: Activity Tolerance, Functional Strength, Safety, Balance, Gait, Transfer, Bed Mobility, ROM Treatment/Plan Treatment Plan: Continue Plan of Care Treatment Plan: Education, Functional Activity Gayle, Functional Strength, Gait, Safety, Therapeutic Exercise, Transfers Treatment Duration: Apr 28, 2020 Frequency: 6 times per week Estimated Hrs Per Day: .25 hour per day Patient and/or Family Agrees t: Yes Safety Risks/Education Patient Education: Gait Training, Transfer Techniques, Correct Positioning, Safety Issues Teaching Recipient: Patient Teaching Methods: Demonstration, Discussion Response to Teaching: Reinforcement Needed Time/GCodes Time In: 1305 Time Out: 1315 Total Billed Treatment Time: 10 Total Billed Treatment 1 visit FA CHELA RODRIGUEZ PT Apr 22, 2020 13:39
--- NOTE | 2020-04-22 13:50 | Progress Note - Hospitalist ---
Subjective HPI/CC On Admission Date Seen by Provider: Apr 22, 2020 Time Seen by Provider: 10:40 Pt is a 69yoCM with a PMH of HTN, HLD, and hypothyroidism who presented to the ER due to dyspnea and known COVID19. He states that his symptoms started around 04/06 and he was actually feeling better a few days ago but then they worsened. He reports fevers, diarrhea, and SOB with cough. He denies any loss of taste/smell or nausea. He was found to be satting 82% of arrival. He reports feeling ok this morning. He was placed on prednisone and azithromycin on 04/15. Subjective/Events-last exam He is feeling more short of breath today. He got up and into the bathroom and became very winded. At the time my exam, he is lying in bed and says he feels better. He denies fevers. He denies chest pain. He has no other complaints or concerns. Objective Exam Vital Signs Vital Signs Date Time Temp Pulse Resp B/P (MAP) Pulse Ox O2 Delivery O2 Flow Rate FiO2 04/22/20 11:07 36.3 54 20 138/78 (98) 96 Vapotherm 15.00 40.00 04/22/20 10:12 45 Capillary Refill : NONE General Appearance: No Apparent Distress, Obese Respiratory: Lungs Clear, Normal Breath Sounds, No Respiratory Distress Cardiovascular: Regular Rate, Rhythm, No Edema, No Murmur Gastrointestinal: Normal Bowel Sounds, Non Tender, Soft Extremity: Normal Inspection, Non Tender, No Pedal Edema Neurologic/Psychiatric: Alert, Oriented x3, No Motor/Sensory Deficits, Normal Mood/Affect Skin: Normal Color, Warm/Dry Results/Procedures Lab Laboratory Tests 04/22/20 06:17 Patient resulted labs reviewed. Imaging: Reviewed Imaging Report Assessment/Plan Assessment and Plan Assess & Plan/Chief Complaint Acute respiratory failure due to COVID-19 Continue decadron Awaiting convalescent plasma Lovenox Repeat procalcitonin and d-dimer Repeat chest xray Now requiring Vapotherm Elevated LFTs Likely due to COVID Monitor CKD Creatinine stable, unknown baseline HTN BP well controlled, hold home meds HLD Hypothyroidism Continue home meds DVT ppx: Lovenox Diagnosis/Problems Diagnosis/Problems (1) Acute respiratory failure due to COVID-19 Status: Acute (2) Elevated LFTs Status: Acute (3) HTN (hypertension) Status: Chronic Qualifiers: Hypertension type: essential hypertension Qualified Codes: I10 - Essential (primary) hypertension (4) CKD (chronic kidney disease) Status: Chronic (5) Obesity Status: Chronic Clinical Quality Measures DVT/VTE Risk/Contraindication: Risk Factor Score Per Nursin RFS Level Per Nursing on Admit: 2=Moderate DEQUAN OVERTON MD Apr 22, 2020 13:50
[2020-04-22 13:54] LABS: BASOPHILS % (AUTO) 0 % (0-10); EOSINOPHILS % (AUTO) 0 % (0-10); HEMATOCRIT 33 % (40-54); HEMOGLOBIN 10.8 g/dL (13.3-17.7); LYMPHOCYTES # (AUTO) 0.5 10^3/uL (1.0-4.0); LYMPHOCYTES % (AUTO) 5 % (12-44); MEAN CORPUSCULAR HEMOGLOBIN 32 pg (25-34); MEAN CORPUSCULAR HGB CONC 33 g/dL (32-36); MEAN CORPUSCULAR VOLUME 99 fL (80-99); MEAN PLATELET VOLUME 11.7 fL (9.0-12.2); MONOCYTES # (AUTO) 0.6 10^3/uL (0.0-1.0); MONOCYTES % (AUTO) 6 % (0-12); NEUTROPHILS % (AUTO) 88 % (42-75); PLATELET COUNT 229 10^3/uL (130-400); WHITE BLOOD COUNT 10.2 10^3/uL (4.3-11.0)
--- NOTE | 2020-04-22 14:44 | Occupational Ther Daily Note ---
OT Current Status-Daily Note Subjective Pt. does not report pain, but does state that he can't "catch" his air. Appearance Pt. seated on side of bed when therapy enters room. Mental Status/Objective Patient Orientation: Person, Place, Time, Situation ADL-Treatment Therapy Code Descriptions/Definitions Functional Rye Measure: 0=Not Assessed/NA 4=Minimal Assistance 1=Total Assistance 5=Supervision or Setup 2=Maximal Assistance 6=Modified Rye 3=Moderate Assistance 7=Complete IndependenceSCALE: Activities may be completed with or without assistive devices. 8-Ijocqtdsai-gbcikgq completes the activity by him/herself with no assistance from a helper. 5-Set-up or Clean-up Assistance-helper sets up or cleans up; patient completes activity. Excelsior assists only prior to or following the activity. 4-Supervision or Touching Assistance-helper provides verbal cues and/or touching/steadying and/or contact guard assistance as patient completes activity. Assistance may be provided throughout the activity or intermittently. 3-Partial/Moderate Assistance-helper does LESS THAN HALF the effort. Excelsior lifts, holds or supports trunk or limbs, but provides less than half the effort. 2-Substantial/Maximal Assistance-helper does MORE THAN HALF the effort. Excelsior lifts or holds trunk or limbs and provides more than half the effort. 7-Qdtylxaeg-lqtkpl does ALL the effort. Patient does none of the effort to complete the activity. Or, the assistance of 2 or more helpers is required for the patient to complete the activity. If activity was not attempted, code reason: 7-Patient Refused. 9-Not Applicable-not attempted and the patient did not perform the activity before the current illness, exacerbation or injury. 10-Not Attempted due to Environmental Limitations-(lack of equipment, weather restraints, etc.). 88-Not Attempted due to Medical Conditions or Safety Concerns. Eating (QC): 6 Lower Body Dressing (QC): 5 On/Off Footwear: 5 Pt. has on jeans and socks, and states that he put them on himself yesterday. He declines changing them at this time, or changing into a shirt, as he is wearing a hospital gown. OT/PT see pt. together due to SOA, poor endurance, and fatigue. OT addresses ADL skills and deep breathing techniques while PT assesses safety with transfer. Pt. participates in standing dynamic activities with walking back and forth in room, weight shifts, and marching in place. Pt. independent with transfers, with low endurance. Therapy monitors pt's oxygen saturations. Pt. currently on Vapotherm and sats dip down to 79% with activity. Pt. is encouraged to slow his breathing and take deep breaths. Pt. also educated on importance of using breathing machine that is on side table. Pt. does breath but sats are slow to come back up. They do come back to 90%, but with further activity, they dip again into low 80's. Therapy monitors pt. until they come back to 89%. Due to oxygen sats changing with any activity, OT brushes pt's hair for him and sets him up to eat his lunch. Pt. would like to stay sitting on side of bed. All needs met in room. 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 2=Patient will verbalize/demonstrate understanding of assistive devic es/modifications for ADL. 3=Patient will improve strength/tolerance for activity to enable patient to perform ADL's. OT Education/Plan Problem List/Assessment Assessment: Decreased Activ Tolerance Pt would benefit from short term skilled OT services in order to increase functional endurance and strength to maximize LOF for safe return home. Discharge Recommendations Plan/Recommendations: Continue POC Therapy Discharge Recommendati: Home & Family Treatment Plan/Plan of Care Treatment,Training & Education: Yes Patient would benefit from OT for education, treatment and training to promote independence in ADL's, mobility, safety and/or upper extremity function for ADL's. Plan of Care: ADL Retraining, Functional Mobility, UE Funct Exercise/Act Treatment Duration: Apr 30, 2020 Frequency: 5 times per week Estimated Hrs Per Day: .25 hour per day Agreement: Yes Rehab Potential: Fair Time/GCodes Start Time: 13:15 Stop Time: 13:25 Total Time Billed (hr/min): 10 Billed Treatment Time 1, FA Co-treatment with PT. Please see above note for designated roles. MAX TODD OT Apr 22, 2020 14:44
[2020-04-22 16:11] VITALS: BP 142/82
--- NOTE | 2020-04-22 16:11 | Diagnostic Imaging Report ---
INDICATION: Hypoxia. COVID pneumonia. COMPARISON: 04/17/2020 FINDINGS: Single frontal view of the chest demonstrates stable heart size and pulmonary vascularity. Lungs show interval development of mild scattered patchy infiltrate appearing opacities. There is no large effusion or pneumothorax. The visualized osseous structures show no acute abnormalities. IMPRESSION: 1. Interval development of mild scattered patchy infiltrate appearing opacities. Followup is advised. Dictated by: Dictated on workstation # [id number]
[2020-04-22 20:22] VITALS: BP 171/79
[2020-04-22] MEDS: MELATONIN 3 MG TABLET PO PRN (20:56)
[2020-04-22] MEDS: guaiFENesin/DM (ROBITUSSIN DM) 10 ML UDC PO PRN (20:58)
[2020-04-23] VITALS (10 sets, daily range): BP systolic 119–162; BP diastolic 75–88
[2020-04-23] MEDS: RT-ALBUTEROL INHALER HFA (VENTOLIN HFA) 18 GM IH PRN (01:56)
[2020-04-23] MEDS: inSUlin ASPART (NovoLOG) 1 UNIT/0.01 ML (CHARGE PER UNIT) SC SCH ×4 (05:10→20:48)
[2020-04-23 06:21] LABS: BASOPHILS % (AUTO) 0 % (0-10); EOSINOPHILS % (AUTO) 0 % (0-10); HEMATOCRIT 34 % (40-54); HEMOGLOBIN 11.5 g/dL (13.3-17.7); LYMPHOCYTES # (AUTO) 0.6 10^3/uL (1.0-4.0); LYMPHOCYTES % (AUTO) 6 % (12-44); MEAN CORPUSCULAR HEMOGLOBIN 33 pg (25-34); MEAN CORPUSCULAR HGB CONC 34 g/dL (32-36); MEAN CORPUSCULAR VOLUME 96 fL (80-99); MEAN PLATELET VOLUME 10.6 fL (9.0-12.2); MONOCYTES # (AUTO) 0.5 10^3/uL (0.0-1.0); MONOCYTES % (AUTO) 5 % (0-12); NEUTROPHILS # (AUTO) 8.9 10^3/uL (1.8-7.8); NEUTROPHILS % (AUTO) 88 % (42-75); PLATELET COUNT 218 10^3/uL (130-400); WHITE BLOOD COUNT 10.1 10^3/uL (4.3-11.0)
[2020-04-23] MEDS: dexAMETHasone 6 MG TAB (DECADRON) PO SCH (06:30)
[2020-04-23 06:34] LABS: ALBUMIN 3.6 GM/DL (3.2-4.5)
[2020-04-23 06:37] LABS: TOTAL PROTEIN 7.3 GM/DL (6.4-8.2)
[2020-04-23 06:39] LABS: BILIRUBIN,TOTAL 0.6 MG/DL (0.1-1.0)
[2020-04-23 06:41] LABS: CREATININE SERUM 1.27 MG/DL (0.60-1.30)
[2020-04-23] MEDS: PANTOPRAZOLE 40 MG (PROTONIX) TAB PO SCH (08:31)
[2020-04-23] MEDS: LEVOTHYROXINE 50 MCG (LEVOTHROID) TAB PO SCH (08:31)
[2020-04-23] MEDS: ENOXAPARIN 80 MG/0.8 ML (LOVENOX) SYR SC SCH ×2 (08:31→21:09)
--- NOTE | 2020-04-23 10:05 | Physical Therapy Progress Note ---
Therapy Progress Note Patient on Hold per RN and physician secondary to increase demand of O2. RN reports patient is "maxed out" on vapotherm and SAO2 decreased to 70's% with minimal activity. PT will attempt in a.m. KORI BENAVIDEZ PT Apr 23, 2020 10:05
[2020-04-23] MEDS ORDERED: LACTATED RINGERS 1,000 ML IV ONE (10:30)
--- NOTE | 2020-04-23 11:31 | NUR ---
CM/SS: Pt is currently on Vapotherm and will remain in the hospital over the weekend. Oxygen for pt has been previously delivered. The oxygen from [facility] had been delivered thinking pt was leaving. The Oxygen is located in the 4th floor workroom.
--- NOTE | 2020-04-23 13:04 | Occ Therapy Progress Note ---
Therapy Progress Note Per PT report-Patient on Hold per RN and physician secondary to increase demand of O2. RN reports patient is "maxed out" on vapotherm and SAO2 decreased to 70's% with minimal activity. ANA MCNAIR Apr 23, 2020 13:04
[2020-04-23] MEDS ORDERED: NS IV 500 ML 500 ML ONE (13:21)
--- NOTE | 2020-04-23 14:14 | NUR ---
"RD ASSESSMENT PMHx: HTN; HLD; hypothyroidism; PT INTERACTION: Note pt is currently in COVID isolation per chart review. Note all diet information for nutrition assessment for LOS is per Libia RN, or per chart review. Libia states current appetite appears good. Note avg PO intake >90% x3d, per chart review. Libia states no issues with nausea, vomiting, constipation, or diarrhea that she is aware of. Note last BM was 04/21, and pt not currently on bowel regimen per chart review. Note unable to determine recent wt hx, per chart review. Est. kcal needs: 4141-4860 kcal | 15-20 kcal/kg Est. Pro needs: 67-82 g Pro | 0.8-1.0 g Pro/kg PES STATEMENT: Given current PO intake, no nutrition diagnosis at this time (NO-1.1). INTERVENTION: Continue with current diet order of Regular diet. Will continue to follow and reassess as pt needs, intake, and status change. S JAIMIE BECKETT, MS RD LD [phone] cell"
[2020-04-23] MEDS ORDERED: CATHETER FLUSH 10 ML SYR IV PRN (14:45)
[2020-04-23] MEDS ORDERED: NS 100 ML (IVPB) BAG IV ONE (14:45)
[2020-04-23] MEDS ORDERED: HOLD METFORMIN - RECEIVED CONTRAST 20 ML VIAL IV SCH (14:45)
[2020-04-23] MEDS ORDERED: IOHEXOL 350 MG/ML 100 ML (OMNIPAQUE 350) VIAL IV ONE (14:45)
--- NOTE | 2020-04-23 15:30 | Progress Note - Hospitalist ---
Subjective HPI/CC On Admission Date Seen by Provider: Apr 23, 2020 Time Seen by Provider: 10:25 Pt is a 69yoCM with a PMH of HTN, HLD, and hypothyroidism who presented to the ER due to dyspnea and known COVID19. He states that his symptoms started around 04/06 and he was actually feeling better a few days ago but then they worsened. He reports fevers, diarrhea, and SOB with cough. He denies any loss of taste/smell or nausea. He was found to be satting 82% of arrival. He reports feeling ok this morning. He was placed on prednisone and azithromycin on 04/15. Subjective/Events-last exam He went to the restroom and a got very short of breath and his oxygen saturations dropped down. He is lying in bed and feeling a bit better now. He is not having fevers. He is having a little bit of sharp, pleuritic chest pain. Objective Exam Vital Signs Vital Signs Date Time Temp Pulse Resp B/P (MAP) Pulse Ox O2 Delivery O2 Flow Rate FiO2 04/23/20 15:12 37.5 58 18 155/88 100 Vapotherm 04/23/20 11:11 35.00 70.00 04/23/20 08:00 70 Capillary Refill : NONE General Appearance: No Apparent Distress, WD/WN Respiratory: Lungs Clear, Normal Breath Sounds, No Respiratory Distress Cardiovascular: Regular Rate, Rhythm, No Edema, No Murmur Gastrointestinal: Normal Bowel Sounds, Non Tender, Soft Extremity: Normal Inspection, Non Tender, No Pedal Edema Neurologic/Psychiatric: Alert, Oriented x3, No Motor/Sensory Deficits, Normal Mood/Affect Skin: Normal Color, Warm/Dry Results/Procedures Lab Laboratory Tests 04/23/20 06:12 Patient resulted labs reviewed. Imaging: Reviewed Imaging Report Assessment/Plan Assessment and Plan Assess & Plan/Chief Complaint Acute respiratory failure due to COVID-19 Continue decadron s/p convalescent plasma x1 Lovenox Continue Vapotherm Obtain CT Chest to rule out PE Elevated LFTs Likely due to COVID Monitor CKD Creatinine stable, unknown baseline HTN BP well controlled, hold home meds HLD Hypothyroidism Continue home meds DVT ppx: Lovenox Diagnosis/Problems Diagnosis/Problems (1) Acute respiratory failure due to COVID-19 Status: Acute (2) Elevated LFTs Status: Acute (3) HTN (hypertension) Status: Chronic Qualifiers: Hypertension type: essential hypertension Qualified Codes: I10 - Essential (primary) hypertension (4) CKD (chronic kidney disease) Status: Chronic (5) Obesity Status: Chronic Clinical Quality Measures DVT/VTE Risk/Contraindication: Risk Factor Score Per Nursin RFS Level Per Nursing on Admit: 2=Moderate DEQUAN OVERTON MD Apr 23, 2020 15:30
--- NOTE | 2020-04-23 17:23 | Diagnostic Imaging Report ---
INDICATION: COVID positive patient with increasing hypoxia. TECHNIQUE: Multiple contiguous axial images were obtained through the chest after uneventful bolus administration of intravenous contrast. 3D reconstructed CTA MIP acquisitions were also performed. Auto Exposure Controls were utilized during the CT exam to meet ALARA standards for radiation dose reduction. There is no previous chest CT for comparison. Pulmonary parenchymal vessels are well-opacified with no CT evidence of pulmonary emboli. There is no aortic dissection or aneurysm. There is mild atherosclerotic plaquing of the aorta. There are some coronary artery calcifications present. There is no mediastinal or hilar adenopathy. There is no axillary adenopathy. There is no pleural or pericardial fluid. Visualized portions of the upper abdomen are unremarkable. Lung parenchymal windows demonstrate fairly extensive groundglass infiltrates throughout both lungs, with lower lobe predominance. The findings are typical for a COVID pneumonia. There is no elvira consolidation or mass. IMPRESSION: Extensive groundglass infiltrates throughout both lungs compatible with COVID pneumonia. No evidence of pulmonary emboli or other acute finding. Dictated by: Dictated on workstation # [id number]
[2020-04-23] MEDS: MELATONIN 3 MG TABLET PO PRN (21:09)
[2020-04-24] VITALS (7 sets, daily range): BP systolic 105–127; BP diastolic 65–77
[2020-04-24] MEDS: inSUlin ASPART (NovoLOG) 1 UNIT/0.01 ML (CHARGE PER UNIT) SC SCH ×4 (05:34→20:53)
[2020-04-24 06:03] LABS: ALBUMIN 3.5 GM/DL (3.2-4.5)
[2020-04-24 06:04] LABS: POTASSIUM 3.9 MMOL/L (3.6-5.0)
[2020-04-24] MEDS: dexAMETHasone 6 MG TAB (DECADRON) PO SCH (06:04)
[2020-04-24 06:06] LABS: TOTAL PROTEIN 7.3 GM/DL (6.4-8.2)
[2020-04-24 06:08] LABS: BILIRUBIN,TOTAL 0.7 MG/DL (0.1-1.0)
[2020-04-24 06:10] LABS: CREATININE SERUM 1.27 MG/DL (0.60-1.30)
[2020-04-24] MEDS: PANTOPRAZOLE 40 MG (PROTONIX) TAB PO SCH (08:08)
[2020-04-24] MEDS: ENOXAPARIN 80 MG/0.8 ML (LOVENOX) SYR SC SCH ×2 (08:09→20:53)
[2020-04-24] MEDS: LEVOTHYROXINE 50 MCG (LEVOTHROID) TAB PO SCH (08:10)
[2020-04-24 08:27] LABS: BASOPHILS % (AUTO) 0 % (0-10); EOSINOPHILS % (AUTO) 0 % (0-10); HEMATOCRIT 34 % (40-54); HEMOGLOBIN 11.3 g/dL (13.3-17.7); LYMPHOCYTES # (AUTO) 0.4 10^3/uL (1.0-4.0); LYMPHOCYTES % (AUTO) 6 % (12-44); MEAN CORPUSCULAR HEMOGLOBIN 32 pg (25-34); MEAN CORPUSCULAR HGB CONC 34 g/dL (32-36); MEAN CORPUSCULAR VOLUME 96 fL (80-99); MEAN PLATELET VOLUME 11.4 fL (9.0-12.2); MONOCYTES # (AUTO) 0.5 10^3/uL (0.0-1.0); MONOCYTES % (AUTO) 6 % (0-12); NEUTROPHILS # (AUTO) 6.5 10^3/uL (1.8-7.8); NEUTROPHILS % (AUTO) 87 % (42-75); PLATELET COUNT 209 10^3/uL (130-400); WHITE BLOOD COUNT 7.5 10^3/uL (4.3-11.0)
[2020-04-24 08:59] LABS: BAND NEUTROPHILS 2 %; LYMPHOCYTES % (MANUAL) 3 %; MONOCYTES % (MANUAL) 4 %; NEUTROPHILS % (MANUAL) 91 %; RBC MORPH N
[2020-04-24] MEDS: BENZONATATE 100 MG (TESSALON) CAPSULE PO PRN (09:42)
[2020-04-24] MEDS: guaiFENesin/DM (ROBITUSSIN DM) 10 ML UDC PO PRN ×2 (09:42→20:54)
[2020-04-24] MEDS ORDERED: LORazepam INJ 2 MG/ML (ATIVAN) VIAL IVP PRN (10:30)
--- NOTE | 2020-04-24 11:16 | Physical Therapy Progress Note ---
Therapy Progress Note Per nurse, patient still having difficulty maintaining oxygen levels and feels lightheaded with standing. Patient and nurse request no therapy this date. We will return 04/26/20. XIANG DEUTSCH PT Apr 24, 2020 11:16
--- NOTE | 2020-04-24 12:40 | Progress Note - Hospitalist ---
Subjective HPI/CC On Admission Date Seen by Provider: Apr 24, 2020 Time Seen by Provider: 10:25 Pt is a 69yoCM with a PMH of HTN, HLD, and hypothyroidism who presented to the ER due to dyspnea and known COVID19. He states that his symptoms started around 04/06 and he was actually feeling better a few days ago but then they worsened. He reports fevers, diarrhea, and SOB with cough. He denies any loss of taste/smell or nausea. He was found to be satting 82% of arrival. He reports feeling ok this morning. He was placed on prednisone and azithromycin on 04/15. Subjective/Events-last exam He is about the same as yesterday. He is still short of breath, especially with activity. He denies fevers. Objective Exam Vital Signs Vital Signs Date Time Temp Pulse Resp B/P (MAP) Pulse Ox O2 Delivery O2 Flow Rate FiO2 04/24/20 11:05 36.9 88 22 105/71 (82) 97 Vapotherm 38.00 55.00 04/24/20 08:24 55 Capillary Refill : NONE General Appearance: No Apparent Distress, Obese Respiratory: Lungs Clear, Normal Breath Sounds, No Respiratory Distress Gastrointestinal: Normal Bowel Sounds, Non Tender, Soft Extremity: Normal Inspection, Non Tender, No Pedal Edema Neurologic/Psychiatric: Alert, Oriented x3, No Motor/Sensory Deficits, Normal Mood/Affect Skin: Normal Color, Warm/Dry Results/Procedures Lab Laboratory Tests 04/24/20 05:19 Patient resulted labs reviewed. Imaging: Reviewed Imaging Report Assessment/Plan Assessment and Plan Assess & Plan/Chief Complaint Acute respiratory failure due to COVID-19 CT showed no PE, diffuse groundglass opacities Continue Decadron s/p Convalescent plasma x1 Prophylactic Lovenox Repeat d-dimer tomorrow Procalcitonin remains normal, no antibiotics Continue Vapotherm, weaning as able Elevated LFTs Improving Likely due to COVID Monitor CKD 3 Creatinine stable, unknown baseline HTN BP well controlled, hold home meds HLD Hypothyroidism Continue home meds DVT ppx: Lovenox Diagnosis/Problems Diagnosis/Problems (1) Acute respiratory failure due to COVID-19 Status: Acute (2) Elevated LFTs Status: Acute (3) HTN (hypertension) Status: Chronic Qualifiers: Hypertension type: essential hypertension Qualified Codes: I10 - Essential (primary) hypertension (4) CKD (chronic kidney disease) Status: Chronic (5) Obesity Status: Chronic Clinical Quality Measures DVT/VTE Risk/Contraindication: Risk Factor Score Per Nursin RFS Level Per Nursing on Admit: 2=Moderate DEQUAN OVERTON MD Apr 24, 2020 12:40
[2020-04-24] MEDS: MELATONIN 3 MG TABLET PO PRN (20:54)
[2020-04-25 03:20] VITALS: BP 137/74
[2020-04-25] MEDS: inSUlin ASPART (NovoLOG) 1 UNIT/0.01 ML (CHARGE PER UNIT) SC SCH ×4 (05:24→20:53)
[2020-04-25] MEDS: dexAMETHasone 6 MG TAB (DECADRON) PO SCH (06:11)
[2020-04-25] MEDS: RT-ALBUTEROL INHALER HFA (VENTOLIN HFA) 18 GM IH SCH ×5 (06:15→21:24)
[2020-04-25 06:35] LABS: BASOPHILS % (AUTO) 0 % (0-10); EOSINOPHILS % (AUTO) 0 % (0-10); HEMATOCRIT 34 % (40-54); HEMOGLOBIN 11.6 g/dL (13.3-17.7); LYMPHOCYTES # (AUTO) 0.4 10^3/uL (1.0-4.0); LYMPHOCYTES % (AUTO) 4 % (12-44); MEAN CORPUSCULAR HEMOGLOBIN 33 pg (25-34); MEAN CORPUSCULAR HGB CONC 34 g/dL (32-36); MEAN CORPUSCULAR VOLUME 95 fL (80-99); MEAN PLATELET VOLUME 10.9 fL (9.0-12.2); MONOCYTES # (AUTO) 0.4 10^3/uL (0.0-1.0); MONOCYTES % (AUTO) 4 % (0-12); NEUTROPHILS % (AUTO) 91 % (42-75); PLATELET COUNT 202 10^3/uL (130-400)
[2020-04-25 06:47] LABS: ALBUMIN 3.5 GM/DL (3.2-4.5)
[2020-04-25 06:48] LABS: POTASSIUM 3.7 MMOL/L (3.6-5.0)
[2020-04-25 06:49] LABS: CALCIUM 9.1 MG/DL (8.5-10.1)
[2020-04-25 06:50] LABS: TOTAL PROTEIN 7.4 GM/DL (6.4-8.2)
[2020-04-25 06:52] LABS: BILIRUBIN,TOTAL 0.6 MG/DL (0.1-1.0)
[2020-04-25 06:54] LABS: CREATININE SERUM 1.23 MG/DL (0.60-1.30)
[2020-04-25] MEDS: RT-ALBUTEROL INHALER HFA (VENTOLIN HFA) 18 GM IH PRN (07:00)
[2020-04-25 08:00] VITALS: BP 127/74
[2020-04-25] MEDS: LEVOTHYROXINE 50 MCG (LEVOTHROID) TAB PO SCH (08:29)
[2020-04-25] MEDS: PANTOPRAZOLE 40 MG (PROTONIX) TAB PO SCH (08:29)
[2020-04-25] MEDS: ENOXAPARIN 80 MG/0.8 ML (LOVENOX) SYR SC SCH ×2 (08:30→20:55)
[2020-04-25] MEDS: guaiFENesin/DM (ROBITUSSIN DM) 10 ML UDC PO PRN ×2 (08:30→20:55)
[2020-04-25 12:00] VITALS: BP 113/66
--- NOTE | 2020-04-25 14:20 | Progress Note - Hospitalist ---
Subjective HPI/CC On Admission Date Seen by Provider: Apr 25, 2020 Time Seen by Provider: 11:25 Pt is a 69yoCM with a PMH of HTN, HLD, and hypothyroidism who presented to the ER due to dyspnea and known COVID19. He states that his symptoms started around 04/06 and he was actually feeling better a few days ago but then they worsened. He reports fevers, diarrhea, and SOB with cough. He denies any loss of taste/smell or nausea. He was found to be satting 82% of arrival. He reports feeling ok this morning. He was placed on prednisone and azithromycin on 04/15. Subjective/Events-last exam he is feeling about the same as yesterday. He is still short of breath. He is not having fevers. He has been eating and drinking. Objective Exam Vital Signs Vital Signs Date Time Temp Pulse Resp B/P (MAP) Pulse Ox O2 Delivery O2 Flow Rate FiO2 04/25/20 12:00 36.2 68 20 113/66 (82) 99 Vapotherm 30.00 55.00 04/25/20 11:11 55 Capillary Refill : NONE General Appearance: No Apparent Distress, WD/WN Respiratory: Lungs Clear, Normal Breath Sounds, No Respiratory Distress Cardiovascular: Regular Rate, Rhythm, No Edema, No Murmur Gastrointestinal: Normal Bowel Sounds, Non Tender, Soft Extremity: Normal Inspection, Non Tender, No Pedal Edema Neurologic/Psychiatric: Alert, Oriented x3, No Motor/Sensory Deficits, Normal Mood/Affect Skin: Normal Color, Warm/Dry Results/Procedures Lab Laboratory Tests 04/25/20 06:08 Patient resulted labs reviewed. Imaging: Reviewed Imaging Report Assessment/Plan Assessment and Plan Assess & Plan/Chief Complaint Acute respiratory failure due to COVID-19 Continue Decadron s/p Convalescent plasma x1 D-dimer stable, minimally elevated Continue prophylactic Lovenox Procalcitonin remains normal, no antibiotics Continue Vapotherm, wean as able Elevated LFTs Improving Likely due to COVID Monitor CKD 3 Creatinine stable, unknown baseline HTN BP well controlled, hold home meds HLD Hypothyroidism Continue home meds DVT ppx: Lovenox Diagnosis/Problems Diagnosis/Problems (1) Acute respiratory failure due to COVID-19 Status: Acute (2) Elevated LFTs Status: Acute (3) HTN (hypertension) Status: Chronic Qualifiers: Hypertension type: essential hypertension Qualified Codes: I10 - Essential (primary) hypertension (4) CKD (chronic kidney disease) Status: Chronic (5) Obesity Status: Chronic Clinical Quality Measures DVT/VTE Risk/Contraindication: Risk Factor Score Per Nursin RFS Level Per Nursing on Admit: 2=Moderate DEQUAN OVERTON MD Apr 25, 2020 14:20
[2020-04-25 15:41] VITALS: BP 109/68
[2020-04-25 20:23] VITALS: BP 107/67
[2020-04-25] MEDS: MELATONIN 3 MG TABLET PO PRN (20:55)
[2020-04-26 00:29] VITALS: BP 106/66
[2020-04-26] MEDS: RT-ALBUTEROL INHALER HFA (VENTOLIN HFA) 18 GM IH SCH ×6 (02:49→21:37)
[2020-04-26 04:37] VITALS: BP 105/62
[2020-04-26] MEDS: inSUlin ASPART (NovoLOG) 1 UNIT/0.01 ML (CHARGE PER UNIT) SC SCH ×4 (05:57→20:34)
[2020-04-26] MEDS: dexAMETHasone 6 MG TAB (DECADRON) PO SCH (06:08)
[2020-04-26 06:47] LABS: ALBUMIN 3.2 GM/DL (3.2-4.5)
[2020-04-26 06:48] LABS: POTASSIUM 3.7 MMOL/L (3.6-5.0)
[2020-04-26 06:49] LABS: CALCIUM 8.6 MG/DL (8.5-10.1)
[2020-04-26 06:50] LABS: TOTAL PROTEIN 6.9 GM/DL (6.4-8.2)
[2020-04-26 06:52] LABS: BILIRUBIN,TOTAL 0.5 MG/DL (0.1-1.0)
[2020-04-26 06:54] LABS: CREATININE SERUM 1.32 MG/DL (0.60-1.30)
[2020-04-26 08:00] VITALS: BP 120/69
[2020-04-26] MEDS: PANTOPRAZOLE 40 MG (PROTONIX) TAB PO SCH (08:37)
[2020-04-26] MEDS: ENOXAPARIN 80 MG/0.8 ML (LOVENOX) SYR SC SCH ×2 (08:37→20:33)
[2020-04-26] MEDS: LEVOTHYROXINE 50 MCG (LEVOTHROID) TAB PO SCH (08:37)
--- NOTE | 2020-04-26 10:27 | Physical Therapy Progress Note ---
Therapy Progress Note Discussed with nurse and patient is on hold again today due to difficulty maintaining O2 with activity. CHELA BUENROSTRO PT Apr 26, 2020 10:27
--- NOTE | 2020-04-26 10:46 | Progress Note - Hospitalist ---
Subjective HPI/CC On Admission Date Seen by Provider: Apr 26, 2020 Time Seen by Provider: 10:40 Pt is a 69yoCM with a PMH of HTN, HLD, and hypothyroidism who presented to the ER due to dyspnea and known COVID19. He states that his symptoms started around 04/06 and he was actually feeling better a few days ago but then they worsened. He reports fevers, diarrhea, and SOB with cough. He denies any loss of taste/smell or nausea. He was found to be satting 82% of arrival. He reports feeling ok this morning. He was placed on prednisone and azithromycin on 04/15. Subjective/Events-last exam Pt reports feeling well. Still needing Vapotherm. Otherwise no complaints. Objective Exam Vital Signs Vital Signs Date Time Temp Pulse Resp B/P (MAP) Pulse Ox O2 Delivery O2 Flow Rate FiO2 04/26/20 08:00 36.6 77 20 120/69 (86) 100 Vapotherm 30.00 65.00 04/26/20 07:38 65 Capillary Refill : Less Than 3 Seconds General Appearance: No Apparent Distress, WD/WN Respiratory: Lungs Clear, No Accessory Muscle Use, Other (on Vapotherm ) Cardiovascular: Regular Rate, Rhythm, No Murmur Gastrointestinal: Normal Bowel Sounds, Non Tender, Soft Neurologic/Psychiatric: Alert, Oriented x3 Results/Procedures Lab Laboratory Tests 04/26/20 05:50 Patient resulted labs reviewed. Imaging: Reviewed Imaging Report Assessment/Plan Assessment and Plan Assess & Plan/Chief Complaint Acute respiratory failure due to COVID-19 Continue Decadron s/p Convalescent plasma x1 D-dimer stable, minimally elevated Continue prophylactic Lovenox Procalcitonin remains normal, no antibiotics Continue Vapotherm, wean as able Elevated LFTs Stable Likely due to COVID Monitor CKD 3 Creatinine stable, unknown baseline HTN BP well controlled, hold home meds HLD Hypothyroidism Continue home meds DVT ppx: Lovenox Diagnosis/Problems Diagnosis/Problems (1) Acute respiratory failure (2) HLD (hyperlipidemia) (3) Hyperglycemia (4) Hypothyroidism (5) Transaminitis (6) COVID-19 Status: Acute Clinical Quality Measures DVT/VTE Risk/Contraindication: Risk Factor Score Per Nursin RFS Level Per Nursing on Admit: 2=Moderate ROGELIO CARTWRIGHT MD Apr 26, 2020 10:46
[2020-04-26 12:00] VITALS: BP 136/62
--- NOTE | 2020-04-26 15:10 | Physical Therapy Daily Note ---
PT Daily Note-Current Subjective Patient in bed pre tx, agrees to PT, has no complaints of pain. Appearance Patient in bed post tx with nurse call, phone, tray, all needs met. Mental Status Patient Orientation: Person, Place, Situation Attachments: Oxygen Transfers SCALE: Activities may be completed with or without assistive devices. 5-Iindokbdho-aiecykj completes the activity by him/herself with no assistance from a helper. 5-Set-up or Clean-up Assistance-helper sets up or cleans up; patient completes activity. [place] assists only prior to or following the activity. 4-Supervision or Touching Assistance-helper provides verbal cues and/or touching/steadying and/or contact guard assistance as patient completes activity. Assistance may be provided throughout the activity or intermittently. 3-Partial/Moderate Assistance-helper does LESS THAN HALF the effort. [place] lifts, holds or supports trunk or limbs, but provides less than half the effort. 2-Substantial/Maximal Assistance-helper does MORE THAN HALF the effort. [place] lifts or holds trunk or limbs and provides more than half the effort. 0-Ezacplgok-yrrpvl does ALL the effort. Patient does none of the effort to complete the activity. Or, the assistance of 2 or more helpers is required for the patient to complete the activity. If activity was not attempted, code reason: 7-Patient Refused. 9-Not Applicable-not attempted and the patient did not perform the activity before the current illness, exacerbation or injury. 10-Not Attempted due to Environmental Limitations-(lack of equipment, weather restraints, etc.). 88-Not Attempted due to Medical Conditions or Safety Concerns. Roll Left & Right (QC): 6 Sit to Lying (QC): 6 Lying to Sitting/Side of Bed(Q: 6 Sit to Stand (QC): 6 Chair/Gqu-gx-Flsnh Xfer(QC): 6 Gait Training Distance: 30' Walk 10 feet (QC): 4 Gait Persons Needed: 1 Gait Assistive Device: None SBA, patient ambulated 5' forward and back x3, limited with how far he can ambulate due to vapotherm, no unsteadiness but had to sit due to fatigue and SOB, however, his O2 did not drop below 90% Exercises Seated Therapy Exercises: Ankle pumps, Long arc quads Seated Reps: 20 Treatments bed mobility and transfers, ambulation, LE exercise Assessment Current Status: Fair Progress improving endurance PT Safe Deposit Clerk Goals Detention Goals PT Safe Deposit Clerk Goals Time Frame: Apr 28, 2020 Roll Left & Right (QC): 6 Sit to Lying (QC): 6 Lying-Sitting on Side/Bed(QC): 6 Sit to Stand (QC): 6 Chair/Ntp-mp-Khabh Xfer(QC): 6 Walk 10 feet (QC): 6 Walk 50ft with 2 Turns (QC): 6 Walk 150 ft (QC): 6 PT Plan Problem List Problem List: Activity Tolerance, Functional Strength, Safety, Balance, Gait, Transfer Treatment/Plan Treatment Plan: Continue Plan of Care Treatment Plan: Education, Functional Activity Gayle, Functional Strength, Gait, Safety, Therapeutic Exercise, Transfers Treatment Duration: Apr 28, 2020 Frequency: 6 times per week Estimated Hrs Per Day: .25 hour per day Patient and/or Family Agrees t: Yes Safety Risks/Education Patient Education: Gait Training, Transfer Techniques, Correct Positioning, Safety Issues Teaching Recipient: Patient Teaching Methods: Demonstration, Discussion Response to Teaching: Reinforcement Needed Time/GCodes Time In: 1453 Time Out: 1503 Total Billed Treatment Time: 10 Total Billed Treatment 1 visit FA CHELA RODRIGUEZ PT Apr 26, 2020 15:10
[2020-04-26 15:31] VITALS: BP 106/61
--- NOTE | 2020-04-26 15:44 | Occupational Ther Daily Note ---
OT Current Status-Daily Note Subjective No pain reported. Appearance Pt. states that he is feeling better. Mental Status/Objective Patient Orientation: Person, Place, Time, Situation ADL-Treatment Therapy Code Descriptions/Definitions Functional [place] Measure: 0=Not Assessed/NA 4=Minimal Assistance 1=Total Assistance 5=Supervision or Setup 2=Maximal Assistance 6=Modified [place] 3=Moderate Assistance 7=Complete IndependenceSCALE: Activities may be completed with or without assistive devices. 1-Efmgjsnmws-sndviqe completes the activity by him/herself with no assistance from a helper. 5-Set-up or Clean-up Assistance-helper sets up or cleans up; patient completes activity. [place] assists only prior to or following the activity. 4-Supervision or Touching Assistance-helper provides verbal cues and/or touching/steadying and/or contact guard assistance as patient completes activity. Assistance may be provided throughout the activity or intermittently. 3-Partial/Moderate Assistance-helper does LESS THAN HALF the effort. [place] lifts, holds or supports trunk or limbs, but provides less than half the effort. 2-Substantial/Maximal Assistance-helper does MORE THAN HALF the effort. [place] lifts or holds trunk or limbs and provides more than half the effort. 4-Ykmahnsrr-jamarg does ALL the effort. Patient does none of the effort to complete the activity. Or, the assistance of 2 or more helpers is required for the patient to complete the activity. If activity was not attempted, code reason: 7-Patient Refused. 9-Not Applicable-not attempted and the patient did not perform the activity before the current illness, exacerbation or injury. 10-Not Attempted due to Environmental Limitations-(lack of equipment, weather restraints, etc.). 88-Not Attempted due to Medical Conditions or Safety Concerns. Eating (QC): 6 Lower Body Dressing (QC): 5 On/Off Footwear: 6 Pt. states that he is feeling a little better. Pt. transferred supine-sit with independence. Stood without assistive device and took several steps to reclining chair. Transferred with no LOB. Pt. wearing jeans and states that he put them on himself. Noted that oxygen saturations did not dip below 90% with activity. All needs met up in chair. Education OT Patient Education: Correct positioning, Modified ADL techniques, Progress toward Goal/Update tx plan, Purpose of tx/functional activities, Reviewed precautions, Rehab process, Transfer techniques Teaching Recipient: Patient Teaching Methods: Demonstration, Discussion Response to Teaching: Verbalize Understanding, Return Demonstration OT Patcher Bowling Ball Goals Retirement Goals Time Frame: Apr 30, 2020 Eating (QC): 6 Oral Hygiene (QC): 6 Toileting Hygiene (QC): 6 Shower/Bathe Self (QC): 6 Upper Body Dressing (QC): 6 Lower Body Dressing (QC): 6 Additional Goals: 1-Demonstrate ADL Tasks, 2-Verbalize Understanding, 3-ImproveStrength/[place] 1=Demonstrate adherence to instructed precautions during ADL tasks. 2=Patient will verbalize/demonstrate understanding of assistive devices/modifications for ADL. 3=Patient will improve strength/tolerance for activity to enable patient to perform ADL's. OT Education/Plan Problem List/Assessment Assessment: Decreased Activ Tolerance, Impaired I ADL's Pt would benefit from short term skilled OT services in order to increase functional endurance and strength to maximize LOF for safe return home. Discharge Recommendations Plan/Recommendations: Continue POC Therapy Discharge Recommendati: Home & Family Treatment Plan/Plan of Care Treatment,Training & Education: Yes Patient would benefit from OT for education, treatment and training to promote independence in ADL's, mobility, safety and/or upper extremity function for ADL's. Plan of Care: ADL Retraining, Functional Mobility, UE Funct Exercise/Act Treatment Duration: Apr 30, 2020 Frequency: 5 times per week Estimated Hrs Per Day: .25 hour per day Agreement: Yes Rehab Potential: Good Time/GCodes Start Time: 11:14 Stop Time: 11:37 Total Time Billed (hr/min): 23 Billed Treatment Time 1, FA x 2 MAX TODD OT Apr 26, 2020 15:44
[2020-04-26 19:14] VITALS: BP 107/59
[2020-04-27] VITALS (19 sets, daily range): BP systolic 93–127; BP diastolic 52–74
[2020-04-27] MEDS: RT-ALBUTEROL INHALER HFA (VENTOLIN HFA) 18 GM IH SCH ×6 (02:20→21:53)
[2020-04-27 05:56] LABS: ALBUMIN 3.3 GM/DL (3.2-4.5); POTASSIUM 3.8 MMOL/L (3.6-5.0)
[2020-04-27 05:57] LABS: CALCIUM 8.9 MG/DL (8.5-10.1)
[2020-04-27 05:59] LABS: TOTAL PROTEIN 7.3 GM/DL (6.4-8.2)
[2020-04-27 06:00] LABS: BILIRUBIN,TOTAL 0.6 MG/DL (0.1-1.0)
[2020-04-27] MEDS: inSUlin ASPART (NovoLOG) 1 UNIT/0.01 ML (CHARGE PER UNIT) SC SCH ×4 (06:01→20:10)
[2020-04-27 06:02] LABS: CREATININE SERUM 1.33 MG/DL (0.60-1.30)
[2020-04-27] MEDS: dexAMETHasone 6 MG TAB (DECADRON) PO SCH (06:15)
--- NOTE | 2020-04-27 07:11 | Pulmonary Consultation ---
History of Present Illness History of Present Illness Date Seen by Provider: Apr 27, 2020 Time Seen by Provider: 07:06 Date of Admission Allergies and Home Medications Allergies Coded Allergies: Sulfa (Sulfonamide Antibiotics) (Verified Allergy, Unknown, 04/17/20) Home Medications Ascorbic Acid 500 Mg Tablet, 500 MG PO DAILY, (Reported) Aspirin 81 Mg Tablet.dr, 81 MG PO HS, (Reported) Azithromycin 500 Mg Tablet, 500 MG PO DAILY, (Reported) FILLED 04-15-2020 #6/5 DAY SUPPLY Cholecalciferol (Vitamin D3) 50 Mcg Capsule, 50 MCG PO DAILY, (Reported) Hydrochlorothiazide 25 Mg Tablet, 25 MG PO DAILY, (Reported) Levothyroxine Sodium 50 Mcg Tablet, 50 MCG PO DAILY, (Reported) Lisinopril 10 Mg Tablet, 10 MG PO HS, (Reported) Omeprazole 40 Mg Capsule.dr, 80 MG PO BID, (Reported) TAKES 2 (40M) CAPS Prednisone 10 Mg Tab, MG PO DAILY, (Reported) FILLED 04-15-2020 #24/9 DAY SUPPLY TAPER DIRECTIONS: 4 TABS DAILY X 3 DAYS 3 TABS DAILY X 3 DAYS 1 TAB DAILY X 3 DAYS Simvastatin 10 Mg Tablet, 10 MG PO DAILY, (Reported) Past Lnroeje-Tfgljp-Unrcdi Hx Past Med/Social Hx: Reviewed Nursing Past Med/Soc Hx Patient Social History Alcohol Use: Denies Use Smoking Status: Never a Smoker Recent Infectious Disease Expo: No Recent Hopitalizations: No Immunizations Up To Date Date of Influenza Vaccine: Feb 15, 2020 Past Medical History Surgeries: No Respiratory: No Cardiac: No High Cholesterol, Hypertension Neurological: No Hypothyroidsim Integumentary: No Sepsis Event Evaluation Height, Weight, BMI Height: '" Weight: lbs. oz. kg; 30.11 BMI Method: Exam Exam Vital Signs Date Time Temp Pulse Resp B/P (MAP) Pulse Ox O2 Delivery O2 Flow Rate FiO2 04/27/20 04:45 37.0 82 24 127/73 (91) 92 Vapotherm 30.00 65.00 04/27/20 04:40 96 Vapotherm 30.00 65.00 04/27/20 02:20 92 Vapotherm 30.00 65 04/27/20 00:45 37.2 70 22 117/69 (85) 94 Vapotherm 30.00 65.00 04/26/20 21:38 92 Vapotherm 30.00 65 04/26/20 19:40 94 Vapotherm 30.00 65 04/26/20 19:14 36.7 75 20 107/59 (75) 93 Vapotherm 30.00 65.00 04/26/20 18:26 92 Vapotherm 30.00 65 04/26/20 15:31 36.8 78 22 106/61 (76) 97 Vapotherm 30.00 65.00 04/26/20 14:49 92 Vapotherm 30.00 65 04/26/20 12:00 36.0 84 22 136/62 (86) 93 Vapotherm 30.00 65.00 04/26/20 11:02 92 Vapotherm 35.00 65 04/26/20 08:00 100 Vapotherm 30.00 65 04/26/20 08:00 36.6 77 20 120/69 (86) 100 Vapotherm 30.00 65.00 04/26/20 07:38 94 Vapotherm 35.00 65 I & O 04/27/20 07:00 Intake Total 1940 ml Output Total 1050 ml Balance 890 ml Height & Weight Height: '" Weight: lbs. oz. kg; 30.11 BMI Method: General Appearance: No Apparent Distress, WD/WN HEENT: PERRL/EOMI, Moist Mucous Membranes; No Scleral Icterus (L), No Scleral Icterus (R) Neck: Normal Inspection, Supple Respiratory: Lungs Clear, No Accessory Muscle Use, Other (on Vapotherm ) Cardiovascular: Regular Rate, Rhythm, No Murmur Capillary Refill: Less Than 3 Seconds Extremity: Normal Inspection, Non Tender, No Pedal Edema Neurologic/Psychiatric: Alert, Oriented x3 Skin: Normal Color, Warm/Dry Results Lab Laboratory Tests 04/26/20 05:50 04/27/20 05:30 Assessment/Plan Assessment/Plan Acute respiratory failure due to COVID-19 -Transfer to ICU secondary to acute respiratory failure -Start BiPAP -Stat ABG -Proning -Repeat DDIMEr and PCT -Check stat CXR Continue Decadron s/p Convalescent plasma x1 Elevated LFTs Stable Likely due to COVID Monitor CKD 3 Creatinine stable, unknown baseline HTN BP well controlled, hold home meds HLD Hypothyroidism Continue home meds DVT ppx: Lovenox - currently theraputic dose RADHA SPICER DO Apr 27, 2020 07:11
[2020-04-27 07:20] LABS: ABG BASE EXCESS -2.3 MMOL/L (-2.5-2.5); ABG OXYGEN SATURATION 91 % (94-100); ABG PCO2 34 MMHG (35-45); ABG PH 7.42 (7.37-7.43); ABG PO2 63 MMHG (79-93); ABG TCO2 22.3 MMOL/L (21.0-31.0)
[2020-04-27 07:21] LABS: ALLENS TEST YES-POS; INSPIRED O2 40L; PATIENT TEMP 100.3; VENTILATOR NO
--- NOTE | 2020-04-27 07:41 | Diagnostic Imaging Report ---
History: COVID, respiratory failure COMPARISON: 04/22/2020 TECHNIQUE: Frontal view chest COMPARISON: 04/22/2020 FINDINGS: There are airspace opacities in the peripheral lungs bilaterally, with basilar predominance. Overall aeration appears stable since the prior exam. There is no pleural effusion or pneumothorax. The cardiac silhouette is normal in size. IMPRESSION: 1. Bilateral pulmonary airspace opacities, stable since the prior exam. Report was faxed to [place] Infection Control by jennifer at 7:40am. Dictated by: Dictated on workstation # [id number]
--- NOTE | 2020-04-27 08:10 | NUR ---
PT TRANSFERRED TO ICU 4 VIA BED ACCOMPANIED BY 4TH MEDICAL STAFF, PT CONNECTED TO BEDSIDE MONITOR. BIPAP ON WITH FIO2 AT 100%. CALL LIGHT WITHIN REACH.
[2020-04-27] MEDS: ENOXAPARIN 80 MG/0.8 ML (LOVENOX) SYR SC SCH ×2 (08:22→20:11)
[2020-04-27] MEDS: LEVOTHYROXINE 50 MCG (LEVOTHROID) TAB PO SCH (08:23)
[2020-04-27] MEDS: PANTOPRAZOLE 40 MG (PROTONIX) TAB PO SCH (08:25)
--- NOTE | 2020-04-27 08:30 | Physical Therapy Progress Note ---
Therapy Progress Note Patient is being transferred to ICU, will need new orders to continue tx if appropriate, nurse notified. CHELA BUENROSTRO PT Apr 27, 2020 08:30
--- NOTE | 2020-04-27 10:01 | Occ Therapy Progress Note ---
Therapy Progress Note Pt transferred to ICU, OT will need new orders to continue therapy if appropriate. KRYSTAL FERRARA OT Apr 27, 2020 10:01
--- NOTE | 2020-04-27 17:40 | NUR ---
THIS RN NOTIFIED EICU RN (DUE TO DR BEING WITH ANOTHER PATIENT) OF PT DECREASED URINE OUTPUT FOR THIS RN SHIFT, WAITING FOR RETURN CALL.
[2020-04-28] VITALS (27 sets, daily range): BP systolic 86–159; BP diastolic 51–95
[2020-04-28] MEDS: RT-ALBUTEROL INHALER HFA (VENTOLIN HFA) 18 GM IH SCH ×6 (02:36→23:38)
[2020-04-28 02:53] LABS: ABG BASE EXCESS -3.1 MMOL/L (-2.5-2.5); ABG OXYGEN SATURATION 94 % (94-100); ABG PCO2 34 MMHG (35-45); ABG PO2 70 MMHG (79-93)
[2020-04-28 02:54] LABS: ALLENS TEST POSITIVE; INSPIRED O2 70; PATIENT TEMP 36.6; VENTILATOR NO
[2020-04-28 03:46] LABS: BASOPHILS % (AUTO) 0 % (0-10); EOSINOPHILS % (AUTO) 0 % (0-10); HEMATOCRIT 37 % (40-54); LYMPHOCYTES # (AUTO) 0.4 10^3/uL (1.0-4.0); LYMPHOCYTES % (AUTO) 3 % (12-44); MEAN CORPUSCULAR HEMOGLOBIN 32 pg (25-34); MEAN CORPUSCULAR HGB CONC 32 g/dL (32-36); MEAN CORPUSCULAR VOLUME 100 fL (80-99); MONOCYTES # (AUTO) 0.3 10^3/uL (0.0-1.0); MONOCYTES % (AUTO) 3 % (0-12); NEUTROPHILS # (AUTO) 11.7 10^3/uL (1.8-7.8); NEUTROPHILS % (AUTO) 93 % (42-75); PLATELET COUNT 163 10^3/uL (130-400); WHITE BLOOD COUNT 12.6 10^3/uL (4.3-11.0)
[2020-04-28 04:03] LABS: ALBUMIN 3.5 GM/DL (3.2-4.5); CHLORIDE 113 MMOL/L (98-107); SODIUM 144 MMOL/L (135-145)
[2020-04-28 04:04] LABS: CALCIUM 9.3 MG/DL (8.5-10.1)
[2020-04-28 04:05] LABS: GLUCOSE 77 MG/DL (70-105); TOTAL PROTEIN 7.9 GM/DL (6.4-8.2)
[2020-04-28 04:06] LABS: CARBON DIOXIDE 18 MMOL/L (21-32)
[2020-04-28 04:07] LABS: BILIRUBIN,TOTAL 0.7 MG/DL (0.1-1.0)
[2020-04-28 04:09] LABS: ALKALINE PHOSPHATASE 137 U/L (40-136); CREATININE SERUM 1.18 MG/DL (0.60-1.30); GFR ESTIMATED > 60
[2020-04-28 04:10] LABS: BUN/CREATININE RATIO 31
[2020-04-28 04:12] LABS: ALANINE AMINOTRANSFERASE 131 U/L (0-55); MAGNESIUM 2.5 MG/DL (1.6-2.4)
--- NOTE | 2020-04-28 04:46 | Pulmonary Progress Note ---
Subjective Date Seen by a Provider: Apr 28, 2020 Time Seen by a Provider: 04:43 Subjective/Events-last exam Pt is still requiring BiPAP. Sepsis Event Evaluation Height, Weight, BMI Height: '" Weight: lbs. oz. kg; 30.11 BMI Method: Exam Exam Vital Signs Date Time Temp Pulse Resp B/P (MAP) Pulse Ox O2 Delivery O2 Flow Rate FiO2 04/28/20 04:00 85 27 159/93 (122) 92 NIV Bilevel 70.00 04/28/20 03:02 36.6 04/28/20 03:00 78 27 154/88 (107) 94 NIV Bilevel 70.00 04/28/20 02:36 86 34 97 70.00 04/28/20 02:00 77 24 128/65 (79) 93 NIV Bilevel 70.00 04/28/20 01:00 68 28 139/84 (100) 97 NIV Bilevel 70.00 04/28/20 01:00 68 28 139/84 (100) 97 NIV Bilevel 70.00 04/28/20 00:45 63 04/28/20 00:29 NIV Bilevel 70.00 04/28/20 00:00 67 27 130/69 (87) 91 NIV Bilevel 60.00 04/27/20 23:10 36.6 04/27/20 23:00 54 23 115/66 (82) 91 NIV Bilevel 60.00 04/27/20 22:07 NIV Bilevel 60.00 04/27/20 22:00 59 23 119/74 (90) 92 NIV Bilevel 80.00 04/27/20 21:53 67 21 97 75.00 04/27/20 21:00 51 18 100/62 (75) 99 NIV Bilevel 80.00 04/27/20 20:19 NIV Bilevel 80.00 04/27/20 20:00 62 39 106/60 (75) 96 NIV Bilevel 60.00 04/27/20 20:00 NIV Bilevel 60.00 04/27/20 20:00 98 NIV Bilevel 80 04/27/20 19:28 35.7 04/27/20 19:00 60 28 119/72 (85) 94 NIV Bilevel 60.00 04/27/20 19:00 63 04/27/20 19:00 67 22 96 04/27/20 18:00 53 20 108/72 (83) 97 04/27/20 18:00 53 19 108/72 (84) 97 NIV Bilevel 100.00 04/27/20 17:20 51 18 95 04/27/20 17:00 55 23 122/74 (90) 98 04/27/20 17:00 55 27 122/74 (90) 100 NIV Bilevel 100.00 04/27/20 16:00 62 8 113/74 (87) 98 NIV Bilevel 100.00 04/27/20 15:42 36.0 04/27/20 15:03 88 Vapotherm 40.00 100 04/27/20 15:00 64 27 102/59 (73) 92 NIV Bilevel 100.00 04/27/20 14:00 56 17 116/71 (86) 100 NIV Bilevel 100.00 04/27/20 13:00 79 19 108/67 (81) 98 NIV Bilevel 100.00 04/27/20 12:50 74 04/27/20 12:00 56 25 93/52 (66) 97 NIV Bilevel 100.00 04/27/20 11:20 24 94 04/27/20 11:00 71 14 105/67 (80) 92 NIV Bilevel 100.00 04/27/20 10:00 71 11 115/73 (87) 93 NIV Bilevel 100.00 04/27/20 09:00 72 38 114/73 (87) 98 NIV Bilevel 100.00 04/27/20 08:16 88 04/27/20 08:10 98 NIV Bilevel 100 04/27/20 08:09 37.3 83 21 119/71 (87) 98 NIV Bilevel 100.00 04/27/20 07:54 24 94 04/27/20 04:45 37.0 82 24 127/73 (91) 92 Vapotherm 30.00 65.00 I & O 04/28/20 07:00 Intake Total 440 ml Output Total 650 ml Balance -210 ml Height & Weight Height: '" Weight: lbs. oz. kg; 30.11 BMI Method: General Appearance: No Apparent Distress, WD/WN HEENT: PERRL/EOMI, Moist Mucous Membranes; No Scleral Icterus (L), No Scleral Icterus (R) Neck: Normal Inspection, Supple Respiratory: Lungs Clear, No Accessory Muscle Use, Other (on Vapotherm ) Cardiovascular: Regular Rate, Rhythm, No Murmur Capillary Refill: Less Than 3 Seconds Extremity: Normal Inspection, Non Tender, No Pedal Edema Neurologic/Psychiatric: Alert, Oriented x3 Skin: Normal Color, Warm/Dry Results Lab Laboratory Tests 04/26/20 05:50 04/27/20 05:30 04/28/20 03:10 Assessment/Plan Assessment/Plan Acute respiratory failure due to COVID-19 with ARDS -BiPAP - Pt is requiring 70% -Low threshold for intubation -Stat ABG -Proning -Repeat DDIMEr and PCT - CXR -reviewed Decadron s/p Convalescent plasma x1 Leukocytosis -Brown culture and start Zosyn Elevated LFTs Stable Likely due to COVID Monitor CKD 3 Creatinine stable, unknown baseline HTN BP well controlled, hold home meds HLD Hypothyroidism Continue home meds DVT ppx: Lovenox - currently theraputic dose RADHA SPICER DO Apr 28, 2020 04:46
[2020-04-28] MEDS ORDERED: LACTATED RINGERS 1,000 ML IV ONE (04:59)
[2020-04-28] MEDS ORDERED: NS (IVPB) 100 ML ONE (04:59)
[2020-04-28] MEDS ORDERED: PIPERACILLIN/TAZO 4.5 GM VIAL (ZOSYN) IV ONE (05:02)
[2020-04-28] MEDS: inSUlin ASPART (NovoLOG) 1 UNIT/0.01 ML (CHARGE PER UNIT) SC SCH ×4 (05:09→21:18)
[2020-04-28] MEDS: LACTATED RINGERS 1,000 ML IV SCH (05:18)
[2020-04-28] MEDS: dexAMETHasone 6 MG TAB (DECADRON) PO SCH (05:19)
[2020-04-28] MEDS ORDERED: PIPERACILLIN/TAZOBACTAM (BULK) 4.5 GM in NS (IVPB) 100 ML IV SCH (06:00)
[2020-04-28 06:03] LABS: BILIRUBIN,URINE NEGATIVE (NEGATIVE); CLARITY,URINE CLEAR; COLOR,URINE YELLOW; GLUCOSE, URINE (UA) NEGATIVE (NEGATIVE); KETONES,URINE NEGATIVE (NEGATIVE); LEUKOCYTE ESTERASE ,URINE NEGATIVE (NEGATIVE); NITRITE,URINE NEGATIVE (NEGATIVE); PROTEIN,URINE 1+ (NEGATIVE)
[2020-04-28 06:26] LABS: BACTERIA,URINE NEGATIVE /HPF; HYALINE CASTS, URINE 0-2 /LPF; SQUAMOUS EPITHELIAL CELL,UR 0-2 /HPF
--- NOTE | 2020-04-28 08:01 | Diagnostic Imaging Report ---
INDICATION: COVID pneumonia Upright portable chest shows normal heart size and vascularity. There is patchy bilateral airspace disease similar to the 04/27/2020 study. There is no effusion or pneumothorax. There is no bony abnormality. IMPRESSION: Stable infiltrates. Report was faxed to [place]/RN Infection Control by jennifer at 8:01am. Dictated by: Dictated on workstation # [id number]
[2020-04-28] MEDS: LEVOTHYROXINE 50 MCG (LEVOTHROID) TAB PO SCH (08:39)
[2020-04-28] MEDS: ENOXAPARIN 80 MG/0.8 ML (LOVENOX) SYR SC SCH ×2 (08:39→21:18)
[2020-04-28] MEDS: PANTOPRAZOLE 40 MG (PROTONIX) TAB PO SCH (08:39)
[2020-04-28] MEDS: PIPERACILLIN/TAZOBACTAM (BULK) 4.5 GM in NS (IVPB) 100 ML IV SCH ×2 (12:29→19:32)
--- NOTE | 2020-04-28 13:04 | Physical Therapy Evaluation ---
PT Evaluation-General Medical Diagnosis Admission Date Apr 17, 2020 at 16:47 Medical Diagnosis: COVID+, hypoxia Onset Date: Apr 06, 2020 Therapy Diagnosis Therapy Diagnosis: impaired mobility, endurance Precautions Precautions/Isolations: Airborne Isolation, Contact Isolation, Droplet Isolation, Fall Prevention, Pressure Ulcer Referral Physician: Mikki Reason for Referral: Evaluation/Treatment Medical History Pertinent Medical History: HTN, Hypothroidism Reviewed History: Yes Social History Home: Multilevel Current Living Status: Spouse Entry Into Home: Stairs With Railing PT Steps Into Home: 4 has a bedroom upstairs Prior Prior Level of Function SCALE: Activities may be completed with or without assistive devices. 5-Joboydmyov-qyrxyxw completes the activity by him/herself with no assistance from a helper. 5-Set-up or Clean-up Assistance-helper sets up or cleans up; patient completes activity. [place] assists only prior to or following the activity. 4-Supervision or Touching Assistance-helper provides verbal cues and/or touching/steadying and/or contact guard assistance as patient completes activity. Assistance may be provided throughout the activity or intermittently. 3-Partial/Moderate Assistance-helper does LESS THAN HALF the effort. [place] lifts, holds or supports trunk or limbs, but provides less than half the effort. 2-Substantial/Maximal Assistance-helper does MORE THAN HALF the effort. [place] lifts or holds trunk or limbs and provides more than half the effort. 0-Nbyefbjbg-hbrymt does ALL the effort. Patient does none of the effort to complete the activity. Or, the assistance of 2 or more helpers is required for the patient to complete the activity. If activity was not attempted, code reason: 7-Patient Refused. 9-Not Applicable-not attempted and the patient did not perform the activity before the current illness, exacerbation or injury. 10-Not Attempted due to Environmental Limitations-(lack of equipment, weather restraints, etc.). 88-Not Attempted due to Medical Conditions or Safety Concerns. Bed Mobility: 6 Transfers (B,C,W/C): 6 Gait: 6 Stairs: 6 Indoor Mobility (Ambulation): Independent Stairs: Independent PT Evaluation-Current Subjective Patient in bed pre tx, agrees to PT, has no pain currently. Nurse states he probably should not be getting out of bed due to decreasing O2 sats with activit y. Pt/Family Goals "to go home" Objective Patient Orientation: Person, Place, Situation Attachments: Oxygen, IV bipap ROM/Strength ROM Lower Extremities WNL Strength Lower Extremities 4/5 gross BLE Sensory Vision: Wears Glasses Hearing: Functional Sensation Right Lower Extremit: Intact Sensation Left Lower Extremity: Intact Transfers Roll Left to Right (QC): 6 Sit to Lying (QC): 6 Lying to Sitting/Side of Bed(Q: 6 Patient was able to sit on the side of the bed for about 1 min but O2 levels went down into the upper 80's. After laying down it took a good minute for O2 levels to get back to 90%. Balance Sitting Static: Normal Sitting Dynamic: Normal Treatment supine BLE exercises x15 (AP, HS, SAQ) Assessment/Needs Patient in bed post tx with nurse call, phone, tray, all needs met. Patient has decrease endurance, O2 drops with activity. Rehab Potential: Fair PT [facility] Goals [facility] Goals PT Order [place] Goals Time Frame: Apr 28, 2020 Roll Left & Right (QC): 6 Sit to Lying (QC): 6 Lying-Sitting on Side/Bed(QC): 6 Sit to Stand (QC): 6 Chair/Gxk-lo-Tkjeo Xfer(QC): 6 Walk 10 feet (QC): 4 Walk 50ft with 2 Turns (QC): 4 PT Plan Problem List Problem List: Activity Tolerance, Functional Strength, Safety, Balance, Gait, Transfer, Bed Mobility, ROM Treatment/Plan Treatment Plan: Continue Plan of Care Treatment Plan: Bed Mobility, Education, Functional Activity Gayle, Functional Strength, Gait, Safety, Therapeutic Exercise, Transfers Treatment Duration: May 05, 2020 Frequency: 6 times per week Estimated Hrs Per Day: .25 hour per day Patient and/or Family Agrees t: Yes Safety Risks/Education Patient Education: Correct Positioning, Safety Issues Teaching Recipient: Patient Teaching Methods: Demonstration, Discussion Response to Teaching: Reinforcement Needed Discharge Recommendations Plan Patient will perform bed mobility and transfer training, balance and endurance training, functional strengthening, stair training, gait training, and education, to improve functional mobility and independence at home. Therapy Discharge Recommendati: Home & Family Time/GCodes Time In: 1124 Time Out: 1134 Total Billed Treatment Time: 10 Total Billed Treatment 1 visit CHELA FRANCIS PT Apr 28, 2020 13:04
--- NOTE | 2020-04-28 15:29 | Occupational Therapy Eval ---
OT Evaluation-General/PLF Medical Diagnosis Admission Date Apr 17, 2020 at 16:47 Medical Diagnosis: COVID+, hypoxia Onset Date: Apr 06, 2020 Therapy Diagnosis Therapy Diagnosis: decreased ADL status Precautions Precautions/Isolations: Airborne Isolation, Contact Isolation, Droplet Isolation, Fall Prevention, Pressure Ulcer Referral Physician: Mikki Referral Reason: Evaluation/Treatment Medical History Pertinent Medical History: HTN, Hypothroidism Reviewed History: Yes Social History Home: Multilevel Current Living Status: Spouse Entry Into Home: Stairs With Railing Steps Into Home: 4 ADL-Prior Level of Function SCALE: Activities may be completed with or without assistive devices. 6-Bakskkridi-nofxyvx completes the activity by him/herself with no assistance from a helper. 5-Set-up or Clean-up Assistance-helper sets up or cleans up; patient completes activity. [place] assists only prior to or following the activity. 4-Supervision or Touching Assistance-helper provides verbal cues and/or touching/steadying and/or contact guard assistance as patient completes activity. Assistance may be provided throughout the activity or intermittently. 3-Partial/Moderate Assistance-helper does LESS THAN HALF the effort. [place] lifts, holds or supports trunk or limbs, but provides less than half the effort. 2-Substantial/Maximal Assistance-helper does MORE THAN HALF the effort. [place] lifts or holds trunk or limbs and provides more than half the effort. 1-Hdxdkbnfi-hpeiza does ALL the effort. Patient does none of the effort to complete the activity. Or, the assistance of 2 or more helpers is required for the patient to complete the activity. If activity was not attempted, code reason: 7-Patient Refused. 9-Not Applicable-not attempted and the patient did not perform the activity before the current illness, exacerbation or injury. 10-Not Attempted due to Environmental Limitations-(lack of equipment, weather restraints, etc.). 88-Not Attempted due to Medical Conditions or Safety Concerns. ADL PLOF Comments Pt reports being independent with all ADLS and functional mobility at PLOF, no AD/AE Self Care: Independent Functional Cognition: Independent OT Current Status Subjective Pt laying in bed, agreeable to OT evaluation and tx. Mental Status/Objective Patient Orientation: Person, Place, Time, Situation Attachments: IV, Oxygen (Vapotherm) Current Upper Extremity ROM WFL BUEs Upper Extremity Coordination WFL BUEs Upper Extremity Sensation WFL BUEs ADL-Treatment Eating (QC): 6 Other Treatments Pt laying in bed, agreeable to OT evaluation and tx. Pt indicates he feels like he has more energy today than he has in a while. He is now on vapotherm, he was on BiPAP until breakfast time. Pt indicates he had no difficulties eating food. In order to increase BUE strength and endurance, pt completed x5 reps of the following UE exercises, BUES AROM: shoulder flexion, horizontal abduction, elbow flexion/extension. Pt unable to recall exercises taught previous to moving to ICU from 4th floor. Pt demo'd understanding of exercises. OT instructed pt to complete throughout the day, increasing reps as tolerated, he verbalized understanding. O2 saturation remained in the 90%'s throughout tx. Post tx, pt laying in bed, call light in reach and all needs met. Education OT Patient Education: Correct positioning, Energy conservation, Exercise pr ogram, Modified ADL techniques, Progress toward Goal/Update tx plan, Purpose of tx/functional activities Teaching Recipient: Patient Teaching Methods: Discussion Response to Teaching: Verbalize Understanding OT [facility] Goals [employer] Operator Goals Time Frame: May 14, 2020 Eating (QC): 6 Oral Hygiene (QC): 6 Toileting Hygiene (QC): 6 Shower/Bathe Self (QC): 6 Upper Body Dressing (QC): 6 Lower Body Dressing (QC): 6 Additional Goals: 1-Demonstrate ADL Tasks, 2-Verbalize Understanding, 3-ImproveStrength/Gayle 1=Demonstrate adherence to instructed precautions during ADL tasks. 2=Patient will verbalize/demonstrate understanding of assistive devices/modifications for ADL. 3=Patient will improve strength/tolerance for activity to enable patient to perform ADL's. OT Education/Plan Problem List/Assessment Assessment: Decreased Activ Tolerance, Decreased UE Strength, Impaired I ADL's, Impaired Self-Care Skills Pt would benefit from skilled OT services in order to increase functional endurance and strength to maximize LOF for safe return home. Discharge Recommendations Plan/Recommendations: Continue POC Treatment Plan/Plan of Care Patient would benefit from OT for education, treatment and training to promote independence in ADL's, mobility, safety and/or upper extremity function for ADL's. Plan of Care: ADL Retraining, Functional Mobility, UE Funct Exercise/Act Treatment Duration: May 14, 2020 Frequency: 5 times per week Estimated Hrs Per Day: .25 hour per day Agreement: Yes Rehab Potential: Fair Time/GCodes Start Time: 13:58 Stop Time: 14:10 Total Time Billed (hr/min): 12 Billed Treatment Time 1, KRYSTAL CAZARES OT Apr 28, 2020 15:29
[2020-04-28] MEDS: BENZONATATE 100 MG (TESSALON) CAPSULE PO PRN (21:18)
[2020-04-29] VITALS (25 sets, daily range): BP systolic 81–148; BP diastolic 46–85
[2020-04-29] MEDS: RT-ALBUTEROL INHALER HFA (VENTOLIN HFA) 18 GM IH SCH ×6 (02:44→21:42)
[2020-04-29 02:48] LABS: ABG BASE EXCESS -2.9 MMOL/L (-2.5-2.5); ABG OXYGEN SATURATION 94 % (94-100); ABG PCO2 33 MMHG (35-45); ABG PH 7.41 (7.37-7.43); ABG PO2 70 MMHG (79-93); ABG TCO2 22.2 MMOL/L (21.0-31.0); BASOPHILS % (AUTO) 0 % (0-10); EOSINOPHILS % (AUTO) 0 % (0-10); HEMATOCRIT 28 % (40-54); HEMOGLOBIN 9.4 g/dL (13.3-17.7); LYMPHOCYTES # (AUTO) 0.2 10^3/uL (1.0-4.0); LYMPHOCYTES % (AUTO) 2 % (12-44); MEAN CORPUSCULAR HEMOGLOBIN 32 pg (25-34); MEAN CORPUSCULAR HGB CONC 34 g/dL (32-36); MEAN CORPUSCULAR VOLUME 96 fL (80-99); MEAN PLATELET VOLUME 11.3 fL (9.0-12.2); MONOCYTES # (AUTO) 0.3 10^3/uL (0.0-1.0); MONOCYTES % (AUTO) 3 % (0-12); NEUTROPHILS # (AUTO) 9.5 10^3/uL (1.8-7.8); NEUTROPHILS % (AUTO) 95 % (42-75); PLATELET COUNT 182 10^3/uL (130-400)
[2020-04-29 02:52] LABS: ALLENS TEST YES-POS; INSPIRED O2 25L; PATIENT TEMP 35.9; VENTILATOR NO
[2020-04-29 03:05] LABS: ALBUMIN 2.8 GM/DL (3.2-4.5); POTASSIUM 4.2 MMOL/L (3.6-5.0)
[2020-04-29 03:06] LABS: CALCIUM 8.6 MG/DL (8.5-10.1)
[2020-04-29 03:07] LABS: TOTAL PROTEIN 6.6 GM/DL (6.4-8.2)
[2020-04-29 03:09] LABS: BILIRUBIN,TOTAL 0.7 MG/DL (0.1-1.0)
[2020-04-29 03:10] LABS: PHOSPHORUS 3.7 MG/DL (2.3-4.7)
[2020-04-29 03:11] LABS: CREATININE SERUM 1.28 MG/DL (0.60-1.30)
[2020-04-29 03:13] LABS: MAGNESIUM 2.3 MG/DL (1.6-2.4)
[2020-04-29] MEDS: PIPERACILLIN/TAZOBACTAM (BULK) 4.5 GM in NS (IVPB) 100 ML IV SCH ×3 (04:12→19:19)
[2020-04-29] MEDS: LACTATED RINGERS 1,000 ML IV SCH (04:13)
[2020-04-29] MEDS: KCL 20 MEQ TAB (K-DUR) PO SCH (04:13)
[2020-04-29] MEDS: POTASSIUM CL 10MEQ/50ML IVPB 50 ML IV SCH (04:13)
[2020-04-29] MEDS: MAGNESIUM 1 GM/100 ML IVPB 100 ML IV SCH (04:13)
[2020-04-29] MEDS: inSUlin ASPART (NovoLOG) 1 UNIT/0.01 ML (CHARGE PER UNIT) SC SCH ×4 (04:13→20:30)
--- NOTE | 2020-04-29 05:15 | Pulmonary Progress Note ---
Subjective Time Seen by a Provider: 05:12 Subjective/Events-last exam PT still requiring a lot of oxygen Sepsis Event Evaluation Height, Weight, BMI Height: '" Weight: lbs. oz. kg; 30.11 BMI Method: Focused Exam Lactate Level 04/28/20 05:20: Lactic Acid Level 1.34 Exam Exam Vital Signs Date Time Temp Pulse Resp B/P (MAP) Pulse Ox O2 Delivery O2 Flow Rate FiO2 04/29/20 05:00 56 20 100/61 (74) 100 Vapotherm 25.00 65.00 04/29/20 04:00 60 19 93/63 (73) 100 Vapotherm 25.00 65.00 04/29/20 03:00 59 24 93/60 (71) 100 Vapotherm 25.00 65.00 04/29/20 02:45 97 Vapotherm 30.00 70 04/29/20 02:38 35.8 Vapotherm 25.00 65.00 04/29/20 02:00 54 23 93/66 (75) 100 Vapotherm 25.00 70.00 04/29/20 01:25 Vapotherm 25.00 70.00 04/29/20 01:00 54 26 85/54 (64) 100 Vapotherm 28.00 75.00 04/29/20 00:49 56 04/29/20 00:00 53 18 83/51 (62) 100 Vapotherm 28.00 75.00 04/28/20 23:55 36.1 Vapotherm 28.00 75.00 04/28/20 23:41 Vapotherm 28.00 75.00 04/28/20 23:38 95 Vapotherm 30.00 85 04/28/20 23:00 49 21 94/58 (70) 99 Vapotherm 30.00 85.00 04/28/20 22:00 56 24 86/51 (63) 99 Vapotherm 30.00 85.00 04/28/20 21:24 Vapotherm 30.00 85.00 04/28/20 21:00 58 26 99/64 (76) 100 Vapotherm 40.00 95.00 04/28/20 20:00 58 14 103/63 (76) 93 Vapotherm 40.00 95.00 04/28/20 19:46 04/28/20 19:40 52 04/28/20 19:35 35.7 Vapotherm 40.00 95.00 04/28/20 19:30 93 Vapotherm 40.00 95 04/28/20 19:00 56 18 95/60 (72) 93 Vapotherm 40.00 95.00 04/28/20 18:53 93 Vapotherm 40.00 100 04/28/20 18:00 53 51 104/62 (76) 95 NIV Bilevel 80.00 04/28/20 17:00 51 32 104/74 (84) 93 NIV Bilevel 80.00 04/28/20 16:00 49 86/51 (63) 97 NIV Bilevel 80.00 04/28/20 15:32 36.3 04/28/20 15:00 58 19 90/57 (68) 96 NIV Bilevel 80.00 04/28/20 14:10 94 Vapotherm 40.00 95 04/28/20 14:00 56 27 105/74 (84) 95 NIV Bilevel 80.00 04/28/20 13:00 68 27 98/70 (79) 93 NIV Bilevel 80.00 04/28/20 12:47 68 04/28/20 12:00 73 32 93/64 (74) 96 NIV Bilevel 80.00 04/28/20 11:41 37.1 04/28/20 11:00 84 20 95/63 (74) 91 NIV Bilevel 80.00 04/28/20 10:30 73 33 92 75.00 04/28/20 10:00 73 27 108/66 (80) 92 NIV Bilevel 80.00 04/28/20 09:00 78 27 109/68 (82) 94 NIV Bilevel 80.00 04/28/20 08:00 94 14 119/74 (89) 94 NIV Bilevel 80.00 04/28/20 08:00 96 NIV Bilevel 80 04/28/20 07:34 38.1 04/28/20 07:00 87 22 125/71 (89) 95 NIV Bilevel 80.00 04/28/20 06:41 82 29 93 80.00 04/28/20 06:33 80 04/28/20 06:08 NIV Bilevel 80.00 04/28/20 06:00 85 29 131/78 (95) 92 NIV Bilevel 70.00 I & O 04/29/20 07:00 Intake Total 2040 ml Output Total 875 ml Balance 1165 ml Height & Weight Height: '" Weight: lbs. oz. kg; 30.11 BMI Method: General Appearance: No Apparent Distress, WD/WN HEENT: PERRL/EOMI, Moist Mucous Membranes; No Scleral Icterus (L), No Scleral Icterus (R) Neck: Normal Inspection, Supple Respiratory: Lungs Clear, No Accessory Muscle Use, Other (on Vapotherm ) Cardiovascular: Regular Rate, Rhythm, No Murmur Capillary Refill: Less Than 3 Seconds Extremity: Normal Inspection, Non Tender, No Pedal Edema Neurologic/Psychiatric: Alert, Oriented x3 Skin: Normal Color, Warm/Dry Results Lab Laboratory Tests 04/27/20 05:30 04/28/20 03:10 04/29/20 02:20 Assessment/Plan Assessment/Plan Acute respiratory failure due to COVID-19 with ARDS -BiPAP - Pt is requiring 65% -Proning =s/p PCT - CXR -reviewed s/p Decadron s/p Convalescent plasma x1 Leukocytosis -Brown culture and start Zosyn Elevated LFTs Stable Likely due to COVID Monitor CKD 3 Creatinine stable, unknown baseline HTN BP well controlled, hold home meds HLD Hypothyroidism Continue home meds DVT ppx: Lovenox - currently theraputic dose RADHA SPICER DO Apr 29, 2020 05:15
[2020-04-29] MEDS: LEVOTHYROXINE 50 MCG (LEVOTHROID) TAB PO SCH (08:07)
[2020-04-29] MEDS: ENOXAPARIN 80 MG/0.8 ML (LOVENOX) SYR SC SCH ×2 (08:07→20:30)
[2020-04-29] MEDS: PANTOPRAZOLE 40 MG (PROTONIX) TAB PO SCH (08:07)
--- NOTE | 2020-04-29 09:00 | Diagnostic Imaging Report ---
EXAMINATION: Chest radiograph, portable AP view. DATE: 04/29/2020 4:35 AM INDICATION: 69-year-old male, COVID positive. Respiratory difficulty. COMPARISON: April 28, 2020. FINDINGS: There is a right-sided PICC line with tip overlying the lower SVC. Heart size and mediastinal contours are unchanged. There is no identified pneumothorax. There is multifocal bilateral lung consolidation. Lung volumes are low. IMPRESSION: 1. Low lung volumes with multifocal bilateral lung consolidation. 2. Newly placed right-sided PICC line with tip overlying the lower SVC. Report was faxed to [place]/RN Infection Control by jennifer at 8:59am. Dictated by: Dictated on workstation # [id number]
--- NOTE | 2020-04-29 14:14 | Physical Therapy Daily Note ---
PT Daily Note-Current Subjective Patient in bed pre tx, agrees to PT, has no complaints of pain, would like to use the bedside commode. Appearance Patient in bed post tx with nurse call, phone, tray, all needs met. Mental Status Patient Orientation: Person, Place, Situation Attachments: Oxygen, IV Transfers SCALE: Activities may be completed with or without assistive devices. 9-Phtvdjmgem-hmhrjxr completes the activity by him/herself with no assistance from a helper. 5-Set-up or Clean-up Assistance-helper sets up or cleans up; patient completes activity. [place] assists only prior to or following the activity. 4-Supervision or Touching Assistance-helper provides verbal cues and/or touching/steadying and/or contact guard assistance as patient completes activity. Assistance may be provided throughout the activity or intermittently. 3-Partial/Moderate Assistance-helper does LESS THAN HALF the effort. [place] lifts, holds or supports trunk or limbs, but provides less than half the effort. 2-Substantial/Maximal Assistance-helper does MORE THAN HALF the effort. [place] lifts or holds trunk or limbs and provides more than half the effort. 9-Giwsaetke-goghci does ALL the effort. Patient does none of the effort to complete the activity. Or, the assistance of 2 or more helpers is required for the patient to complete the activity. If activity was not attempted, code reason: 7-Patient Refused. 9-Not Applicable-not attempted and the patient did not perform the activity before the current illness, exacerbation or injury. 10-Not Attempted due to Environmental Limitations-(lack of equipment, weather restraints, etc.). 88-Not Attempted due to Medical Conditions or Safety Concerns. Roll Left & Right (QC): 6 Sit to Lying (QC): 6 Lying to Sitting/Side of Bed(Q: 6 Patient's O2 was 94% pre tx, he sits at the side of the bed independently and his O2 drops to low 80's in about 15 seconds, lays back down, says he doesn't have to have a BM anymore, and agrees to a few BLE exercises. Exercises Supine Ex: Ankle pumps, Heel Slides, Short Arc Quads Supine Reps: 15 Treatments sitting, BLE exercises Assessment Current Status: Poor Progress patient cannot handle much activity without drop in O2 PT Skilled Nursing Goals Skilled Nursing Goals PT Final Inspector Shuttle Goals Time Frame: Apr 28, 2020 Roll Left & Right (QC): 6 Sit to Lying (QC): 6 Lying-Sitting on Side/Bed(QC): 6 Sit to Stand (QC): 6 Chair/Szb-ve-Mtfok Xfer(QC): 6 Walk 10 feet (QC): 4 Walk 50ft with 2 Turns (QC): 4 PT Plan Problem List Problem List: Activity Tolerance, Functional Strength, Safety, Balance, Gait, Transfer, Bed Mobility, ROM Treatment/Plan Treatment Plan: Continue Plan of Care Treatment Plan: Bed Mobility, Education, Functional Activity Gayle, Functional Strength, Gait, Safety, Therapeutic Exercise, Transfers Treatment Duration: May 05, 2020 Frequency: 6 times per week Estimated Hrs Per Day: .25 hour per day Patient and/or Family Agrees t: Yes Safety Risks/Education Patient Education: Correct Positioning, Safety Issues Teaching Recipient: Patient Teaching Methods: Demonstration, Discussion Response to Teaching: Reinforcement Needed Time/GCodes Time In: 1318 Time Out: 1333 Total Billed Treatment Time: 25 Total Billed Treatment 1 visit EX 10' FA 15' CHELA BUENROSTRO PT Apr 29, 2020 14:13
--- NOTE | 2020-04-29 15:30 | Occupational Ther Daily Note ---
OT Current Status-Daily Note Subjective No pain reported. Appearance Pt. on Vapotherm in supine position with head elevated. Nursing okay for OT to see pt. Mental Status/Objective Patient Orientation: Person, Place, Time, Situation ADL-Treatment Therapy Code Descriptions/Definitions Functional [place] Measure: 0=Not Assessed/NA 4=Minimal Assistance 1=Total Assistance 5=Supervision or Setup 2=Maximal Assistance 6=Modified [place] 3=Moderate Assistance 7=Complete IndependenceSCALE: Activities may be completed with or without assistive devices. 0-Ojtovmgvcw-vbxwuqd completes the activity by him/herself with no assistance from a helper. 5-Set-up or Clean-up Assistance-helper sets up or cleans up; patient completes activity. [place] assists only prior to or following the activity. 4-Supervision or Touching Assistance-helper provides verbal cues and/or touching/steadying and/or contact guard assistance as patient completes acti vity. Assistance may be provided throughout the activity or intermittently. 3-Partial/Moderate Assistance-helper does LESS THAN HALF the effort. [place] lifts, holds or supports trunk or limbs, but provides less than half the effort. 2-Substantial/Maximal Assistance-helper does MORE THAN HALF the effort. [place] lifts or holds trunk or limbs and provides more than half the effort. 8-Kvzreepiu-khnmat does ALL the effort. Patient does none of the effort to complete the activity. Or, the assistance of 2 or more helpers is required for the patient to complete the activity. If activity was not attempted, code reason: 7-Patient Refused. 9-Not Applicable-not attempted and the patient did not perform the activity before the current illness, exacerbation or injury. 10-Not Attempted due to Environmental Limitations-(lack of equipment, weather restraints, etc.). 88-Not Attempted due to Medical Conditions or Safety Concerns. Oral Hygiene (QC): 5 (Pt. requires set up assistance to brush teeth at bed level.) Toileting Hygiene (QC): 5 Other Treatment OT monitored oxygen saturations throughout treatment. Sats would dip with movement to mid-high 80s, but with deep breaths would come but to 92-93%. Pt. was issued red theraband and educated in UE exercises. Pt. verbalizes understanding. He uses urinal with set up, with no difficulty at bed level. Pt. able to wipe hands clean with bath pack. Pt. requests to brush teeth. Supplies gathered and pt. brushed teeth after set up. All needs met in room. Education OT Patient Education: Correct positioning, Modified ADL techniques, Progress toward Goal/Update tx plan, Purpose of tx/functional activities, Reviewed precautions, Rehab process, Transfer techniques Teaching Recipient: Patient Teaching Methods: Demonstration, Discussion Response to Teaching: Verbalize Understanding, Return Demonstration OT Nursing Home Goals Nursing Home Goals Time Frame: May 14, 2020 Eating (QC): 6 Oral Hygiene (QC): 6 Toileting Hygiene (QC): 6 Shower/Bathe Self (QC): 6 Upper Body Dressing (QC): 6 Lower Body Dressing (QC): 6 Additional Goals: 1-Demonstrate ADL Tasks, 2-Verbalize Understanding, 3- ImproveStrength/Gayle 1=Demonstrate adherence to instructed precautions during ADL tasks. 2=Patient will verbalize/demonstrate understanding of assistive devices/modifications for ADL. 3=Patient will improve strength/tolerance for activity to enable patient to perform ADL's. OT Education/Plan Problem List/Assessment Assessment: Decreased Activ Tolerance, Decreased UE Strength, Impaired I ADL's, Impaired Self-Care Skills Pt would benefit from skilled OT services in order to increase functional endurance and strength to maximize LOF for safe return home. Discharge Recommendations Plan/Recommendations: Continue POC Therapy Discharge Recommendati: Post Acute OT Treatment Plan/Plan of Care Treatment,Training & Education: Yes Patient would benefit from OT for education, treatment and training to promote independence in ADL's, mobility, safety and/or upper extremity function for ADL's. Plan of Care: ADL Retraining, Functional Mobility, UE Funct Exercise/Act Treatment Duration: May 14, 2020 Frequency: 5 times per week Estimated Hrs Per Day: .25 hour per day Agreement: Yes Rehab Potential: Fair Time/GCodes Start Time: 14:19 Stop Time: 14:42 Total Time Billed (hr/min): 23 Billed Treatment Time 1, ADL x 10minutes, Ex x 13minutes MAX TODD OT Apr 29, 2020 15:30
[2020-04-29] MEDS: ACETAMINOPHEN 325 MG TABLET PO PRN (18:17)
[2020-04-30] VITALS (26 sets, daily range): BP systolic 61–221; BP diastolic 26–138
[2020-04-30] MEDS: RT-ALBUTEROL INHALER HFA (VENTOLIN HFA) 18 GM IH SCH ×6 (02:39→22:00)
[2020-04-30 03:05] LABS: BASOPHILS % (AUTO) 0 % (0-10); EOSINOPHILS # (AUTO) 0.1 10^3/uL (0.0-0.3); EOSINOPHILS % (AUTO) 0 % (0-10); HEMATOCRIT 31 % (40-54); HEMOGLOBIN 10.5 g/dL (13.3-17.7); LYMPHOCYTES # (AUTO) 0.4 10^3/uL (1.0-4.0); LYMPHOCYTES % (AUTO) 3 % (12-44); MEAN CORPUSCULAR HEMOGLOBIN 33 pg (25-34); MEAN CORPUSCULAR HGB CONC 34 g/dL (32-36); MEAN CORPUSCULAR VOLUME 95 fL (80-99); MEAN PLATELET VOLUME 10.6 fL (9.0-12.2); MONOCYTES # (AUTO) 0.4 10^3/uL (0.0-1.0); MONOCYTES % (AUTO) 3 % (0-12); NEUTROPHILS # (AUTO) 13.5 10^3/uL (1.8-7.8); NEUTROPHILS % (AUTO) 94 % (42-75); PLATELET COUNT 198 10^3/uL (130-400); WHITE BLOOD COUNT 14.4 10^3/uL (4.3-11.0)
[2020-04-30 03:26] LABS: ALBUMIN 2.8 GM/DL (3.2-4.5); BILIRUBIN,TOTAL 0.8 MG/DL (0.1-1.0); CALCIUM 9.3 MG/DL (8.5-10.1); CREATININE SERUM 1.45 MG/DL (0.60-1.30); PHOSPHORUS 2.7 MG/DL (2.3-4.7); POTASSIUM 4.1 MMOL/L (3.6-5.0); TOTAL PROTEIN 6.7 GM/DL (6.4-8.2)
[2020-04-30 03:38] LABS: LYMPHOCYTES % (MANUAL) 2 %; MONOCYTES % (MANUAL) 2 %; NEUTROPHILS % (MANUAL) 96 %; RBC MORPH NORMAL
[2020-04-30] MEDS: PIPERACILLIN/TAZOBACTAM (BULK) 4.5 GM in NS (IVPB) 100 ML IV SCH ×2 (04:23→12:27)
[2020-04-30] MEDS: LACTATED RINGERS 1,000 ML IV SCH ×2 (04:25→14:58)
[2020-04-30] MEDS: inSUlin ASPART (NovoLOG) 1 UNIT/0.01 ML (CHARGE PER UNIT) SC SCH ×4 (04:48→22:37)
[2020-04-30] MEDS: POTASSIUM CL 10MEQ/50ML IVPB 50 ML IV SCH (04:48)
[2020-04-30] MEDS: KCL 20 MEQ TAB (K-DUR) PO SCH (04:48)
[2020-04-30] MEDS: MAGNESIUM 1 GM/100 ML IVPB 100 ML IV SCH (04:48)
[2020-04-30] MEDS: ACETAMINOPHEN 325 MG TABLET PO PRN (07:46)
[2020-04-30] MEDS: ENOXAPARIN 80 MG/0.8 ML (LOVENOX) SYR SC SCH ×2 (07:47→21:30)
[2020-04-30] MEDS: LEVOTHYROXINE 50 MCG (LEVOTHROID) TAB PO SCH (07:47)
[2020-04-30] MEDS: PANTOPRAZOLE 40 MG (PROTONIX) TAB PO SCH (07:47)
--- NOTE | 2020-04-30 07:50 | Diagnostic Imaging Report ---
EXAMINATION: Chest 1 view HISTORY: Followup. COVID positive. COMPARISON: 04/29/2020. FINDINGS: Stable right PICC. Low lung volumes are again noted with patchy opacities throughout the lungs, more consolidated in the lung bases. No large pleural effusion or pneumothorax. Stable prominent cardiac silhouette. IMPRESSION: 1. Stable chest with stable diffuse opacities throughout the lungs, greatest in the lung bases. 2. Stable right PICC. Dictated by: Dictated on workstation # [id number]
--- NOTE | 2020-04-30 09:25 | Physical Therapy Daily Note ---
PT Daily Note-Current Subjective Patient in bed pre tx, agrees to PT reluctantly, has no pain but states he is struggling to breathe. Appearance Patient in bed post tx with nurse call, phone, tray, all needs met, doctor in room. Mental Status Patient Orientation: Person, Place, Situation Attachments: Oxygen, IV vapotherm Transfers SCALE: Activities may be completed with or without assistive devices. 3-Kvqvbptjnb-beotvvj completes the activity by him/herself with no assistance from a helper. 5-Set-up or Clean-up Assistance-helper sets up or cleans up; patient completes activity. [place] assists only prior to or following the activity. 4-Supervision or Touching Assistance-helper provides verbal cues and/or touching/steadying and/or contact guard assistance as patient completes activity. Assistance may be provided throughout the activity or intermittently. 3-Partial/Moderate Assistance-helper does LESS THAN HALF the effort. [place] lifts, holds or supports trunk or limbs, but provides less than half the effort. 2-Substantial/Maximal Assistance-helper does MORE THAN HALF the effort. [place] lifts or holds trunk or limbs and provides more than half the effort. 3-Eusdajctb-ifvplh does ALL the effort. Patient does none of the effort to comp lete the activity. Or, the assistance of 2 or more helpers is required for the patient to complete the activity. If activity was not attempted, code reason: 7-Patient Refused. 9-Not Applicable-not attempted and the patient did not perform the activity before the current illness, exacerbation or injury. 10-Not Attempted due to Environmental Limitations-(lack of equipment, weather restraints, etc.). 88-Not Attempted due to Medical Conditions or Safety Concerns. Roll Left & Right (QC): 6 Sit to Lying (QC): 6 Lying to Sitting/Side of Bed(Q: 6 Patient was able to sit on the side of the bed independently, he was able to sit for about 5 min and perform LE exercises before having to lay down due to fatigue. His O2 sats actually stayed at around 97% while sitting, much better than yesterday when then dropped to mid to low 80's about 15 seconds after sitting. Exercises Seated Therapy Exercises: Ankle pumps, Long arc quads Seated Reps: 20 Treatments functional mobility, sitting, LE exercise Assessment Current Status: Fair Progress patient was able to sit on side of bed without dropping O2 sats PT [facility] Goals Patient Flow Coordinator Goals PT Patient Flow Coordinator Goals Time Frame: Apr 28, 2020 Roll Left & Right (QC): 6 Sit to Lying (QC): 6 Lying-Sitting on Side/Bed(QC): 6 Sit to Stand (QC): 6 Chair/Wcp-hh-Xekjz Xfer(QC): 6 Walk 10 feet (QC): 4 Walk 50ft with 2 Turns (QC): 4 PT Plan Problem List Problem List: Activity Tolerance, Functional Strength, Safety, Balance, Gait, Transfer, Bed Mobility, ROM Treatment/Plan Treatment Plan: Continue Plan of Care Treatment Plan: Bed Mobility, Education, Functional Activity Gayle, Functional Strength, Gait, Safety, Therapeutic Exercise, Transfers Treatment Duration: May 05, 2020 Frequency: 6 times per week Estimated Hrs Per Day: .25 hour per day Patient and/or Family Agrees t: Yes Safety Risks/Education Patient Education: Correct Positioning, Safety Issues Teaching Recipient: Patient Teaching Methods: Demonstration, Discussion Response to Teaching: Reinforcement Needed Time/GCodes Time In: 08 Time Out: 904 Total Billed Treatment Time: 10 Total Billed Treatment 1 visit FA CHELA RODRIGUEZ PT Apr 30, 2020 09:25
--- NOTE | 2020-04-30 10:48 | Progress Note - Hospitalist ---
KRISTINA ALBRIGHT, 04/30/20 1048: Subjective HPI/CC On Admission Pt is a 69yoCM with a PMH of HTN, HLD, and hypothyroidism who presented to the ER due to dyspnea and known COVID19. He states that his symptoms started around 04/06 and he was actually feeling better a few days ago but then they worsened. He reports fevers, diarrhea, and SOB with cough. He denies any loss of taste/smell or nausea. He was found to be satting 82% of arrival. He reports feeling ok this morning. He was placed on prednisone and azithromycin on 04/15. Subjective/Events-last exam Mr. Younger was seen and examined by Dr. Rojas in the ICU for acute hypoxic respiratory failure secondary to COVID19 infection. He is stating he is more short of breath, but is currently on vapotherm 40% FiO2, satting 98%. Per PT, he was able to sit on the side of the bed today for 5 minutes without desaturation, which is much improved from yesterday. Currently on day 2 of zosyn, pancultures negative. I&O net 12L overall during stay. Focused Exam Lactate Level 04/28/20 05:20: Lactic Acid Level 1.34 Objective Exam Vital Signs Vital Signs Date Time Temp Pulse Resp B/P (MAP) Pulse Ox O2 Delivery O2 Flow Rate FiO2 04/30/20 10:00 78 99 Vapotherm 25.00 40.00 04/30/20 09:29 37.3 04/30/20 08:00 40 04/30/20 08:00 33 Capillary Refill : Less Than 3 Seconds Respiratory: Crackles (bibasilar) Cardiovascular: Tachycardia Gastrointestinal: Non Tender, Soft, Abnormal Bowel Sounds (hypoactive); No Distended Extremity: Pedal Edema (trace) Results/Procedures Lab Laboratory Tests 04/30/20 03:00 Patient resulted labs reviewed. Imaging: Reviewed Imaging Report Assessment/Plan Assessment and Plan Assess & Plan/Chief Complaint Acute respiratory failure due to COVID-19 with ARDS * Currently on vapotherm 40% FiO2, satting 98%; RR 40 * Continue to prone as able * Completed decadron 04/28 * Received 1 unit CP * Albuterol Leukocytosis * Zosyn day 2 * Panculture unremarkable Elevated LFTs * Stable * Likely due to COVID * Monitor CKD 3 * Creatinine stable, unknown baseline HTN * BP well controlled, hold home meds HLD Hypothyroidism * Continue home meds Diet: regular DVT ppx: Lovenox - therapeutic dose FULL CODE Clinical Quality Measures DVT/VTE Risk/Contraindication: Risk Factor Score Per Nursin RFS Level Per Nursing on Admit: 2=Moderate SREEDHAR ROJAS MD 04/30/20 1510: Subjective HPI/CC On Admission Date Seen by Provider: Apr 30, 2020 Time Seen by Provider: 10:15 Review of Systems Pulmonary: Dyspnea Neurological: Other Objective Exam General Appearance: Chronically ill (Anxious) Respiratory: Crackles (bibasilar), Decreased Breath Sounds, Other (Tachypnea) Cardiovascular: Tachycardia Gastrointestinal: Non Tender, Soft Supervisory-Addendum Brief Verification & Attestation Participated in pt care: history, MDM Personally performed: exam, history, MDM, supervision of care Care discussed with: Medical Student Procedures: n/a Verification and Attestation of Medical Student E/M Service A medical student performed and documented this service in my presence. I reviewed and verified all information documented by the medical student and made modifications to such information, when appropriate. I personally performed the physical exam and medical decision making. Sreedhar Rojas, May 01, 2020,17:52 Patient was able to be a little bit more active but remains very tachypneic today. White count was slightly elevated but is on Zosyn prognosis remains a guarded KRISTINA ALBRIGHT, Apr 30, 2020 10:48 SREEDHAR ROJAS MD Apr 30, 2020 15:10
--- NOTE | 2020-04-30 11:56 | Occ Therapy Progress Note ---
Therapy Progress Note Pt declined OT this date,04/30/2020. Pt stated that he was having increased breathing issues so he was struggling to catch his breath. HENRY encouraged pt to participate in B UE exercises/movement to keep his strength. Pt continued to decline to participate. Pt was not agitated only fatigued. 1 [id number] (refusal) ANA MCNAIR Apr 30, 2020 11:56
--- NOTE | 2020-04-30 13:54 | NUR ---
SPOKE WITH PATIENT DAUGHTER AT THIS TIME, UPDATED ON PATIENT STATUS ET REQUESTED SHE BRING OUT A CHANGE OF CLOTHES FOR PATIENT.
--- NOTE | 2020-04-30 14:26 | NUR ---
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 He expressed concerns for his , whom he states is also hospitalized for COVID. He welcomed prayer and expressed feeling deeper sense of inner peace.
--- NOTE | 2020-04-30 14:45 | NUR ---
NOTIFIED PHYSICIAN REGARDING NO URINE OUTPUT FOR LAST 4 HOURS. RECEIVED ORDER TO INCREASE IV FLUIDS. SEE EMAR.
[2020-04-30] MEDS ORDERED: LORazepam 0.5 MG (ATIVAN) TABLET ONE (14:58)
[2020-04-30] MEDS ORDERED: LORazepam 0.5 MG (ATIVAN) TABLET PO PRN (15:00)
[2020-04-30] MEDS ORDERED: FUROSEMIDE 40 MG/4 ML INJ (LASIX) ONE (17:09)
[2020-04-30] MEDS ORDERED: FUROSEMIDE 40 MG/4 ML INJ (LASIX) IVP ONE (17:15)
--- NOTE | 2020-04-30 17:15 | NUR ---
patient having increased work of breathing, tachypneic RR 54, o2 93% on vapotherm, 25/40. Switched patient over to bipap 18/8 50%. Patient O2 sats dropped to 76% increased Bipap to 100% et called RT. Call placed to EICU regarding increased work of breathing et hypoxia. new order received for Lasix 40 mg et scan pt bladder do to no urine output since 10am. Bladder scan showed approx 90ml of urine in bladder. Contacted family to update on pt changes.
--- NOTE | 2020-04-30 17:58 | NUR ---
CONTACTED DR. ROJAS DUE TO PATIENT INCREASED RESPIRATIONS ET ANXIETY. RECEIVED ORDER FOR PRECEDEX, SEE EMAR
[2020-04-30] MEDS ORDERED: DexMEDEtomidine PRE MIX 100 ML IV ONE (17:59)
[2020-04-30] MEDS: DexMEDEtomidine PRE MIX 100 ML IV SCH (18:11)
[2020-04-30] MEDS ORDERED: LIDOCAINE UROJET 2% GEL 10 ML PKG ONE (18:25)
[2020-04-30] MEDS ORDERED: PROPOFOL DRIP (ICU) 100 ML IV ONE (20:12)
--- NOTE | 2020-04-30 20:42 | Procedure/Intervention Note ---
Procedures/Interventions Date of ETT Placement: Apr 30, 2020 Time of ETT Placement: 20:20 Intubation Method: orotracheal Tube Size: 7.5 Medications: Etomidate, Rocuronium Positive End Tide CO2: Yes Breath Sounds after Intubation: bilateral-equal Intubation Complications: no complications Post Intubation Xray: Yes I was called up to the ICU by house calls nurse to help with intubation on this Covid positive patient who was failing BiPAP. Upon my arrival respiratory rate was in the 50s on BiPAP with oxygen saturation of about 84%. We intubated with size 7.5 endotracheal tube 23 cm at the teeth visualizing the tube go through the cords. Positive breath sounds on each side. eICU to manage ventilator settings. MATHEW TORRES APRN Apr 30, 2020 20:42
--- NOTE | 2020-04-30 21:05 | Diagnostic Imaging Report ---
INDICATION: Covid positive. Verify endotracheal tube placement. FINDINGS: Frontal view of the chest is compared to an exam from this morning. Endotracheal tube has been placed with its tip at the level of the top of T3. Bilateral pulmonary infiltrates appear a little denser. No effusion is present. Right arm PICC line remains in place. IMPRESSION: 1. The endotracheal tube tip is at the level of T3. 2. Increasing pulmonary infiltrates. Dictated by: Dictated on workstation # [id number]
[2020-04-30 21:11] LABS: ABG BASE EXCESS -3.3 MMOL/L (-2.5-2.5); ABG OXYGEN SATURATION 86 % (94-100); ABG PCO2 60 MMHG (35-45); ABG PO2 69 MMHG (79-93); ABG TCO2 24.9 MMOL/L (21.0-31.0)
[2020-04-30 21:12] LABS: INSPIRED O2 100; PATIENT TEMP 37.9; VENTILATOR YES
[2020-04-30 21:14] LABS: ABG PH 7.22 (7.37-7.43)
[2020-04-30] MEDS ORDERED: NOREPINEPHRINE 4 MG/250 ML 250 ML IV ONE (21:24)
[2020-04-30] MEDS ORDERED: NS IV 1000 ML 1,000 ML IV SCH (21:30)
[2020-04-30] MEDS ORDERED: ROCURONIUM 10 MG/ML 5 ML SYRINGE IV ONE ×2 (23:04→23:15)
[2020-05-01] VITALS (39 sets, daily range): BP systolic 91–167; BP diastolic 62–113
[2020-05-01] MEDS: DexMEDEtomidine PRE MIX 100 ML IV SCH ×7 (00:01→23:56)
[2020-05-01] MEDS: PROPOFOL DRIP (ICU) 100 ML IV SCH ×4 (00:02→13:21)
[2020-05-01] MEDS ORDERED: fentaNYL DRIP PRE-MIX 250 ML IV ONE (00:06)
[2020-05-01] MEDS: PIPERACILLIN/TAZOBACTAM (BULK) 4.5 GM in NS (IVPB) 100 ML IV SCH ×4 (00:35→19:54)
[2020-05-01] MEDS: CISATRACURIUM INJECTION 100 MG in NS (IVPB) 200 ML IV SCH ×4 (00:35→20:03)
[2020-05-01] MEDS: fentaNYL DRIP PRE-MIX 250 ML IV SCH ×2 (00:38→23:56)
[2020-05-01 02:47] LABS: BASOPHILS % (AUTO) 0 % (0-10); EOSINOPHILS % (AUTO) 0 % (0-10); HEMATOCRIT 30 % (40-54); HEMOGLOBIN 9.9 g/dL (13.3-17.7); LYMPHOCYTES # (AUTO) 0.9 10^3/uL (1.0-4.0); LYMPHOCYTES % (AUTO) 4 % (12-44); MEAN CORPUSCULAR HEMOGLOBIN 33 pg (25-34); MEAN CORPUSCULAR HGB CONC 33 g/dL (32-36); MEAN CORPUSCULAR VOLUME 99 fL (80-99); MONOCYTES # (AUTO) 0.4 10^3/uL (0.0-1.0); MONOCYTES % (AUTO) 2 % (0-12); NEUTROPHILS # (AUTO) 20.8 10^3/uL (1.8-7.8); NEUTROPHILS % (AUTO) 92 % (42-75); PLATELET COUNT 230 10^3/uL (130-400); WHITE BLOOD COUNT 22.6 10^3/uL (4.3-11.0)
[2020-05-01 02:57] LABS: ALBUMIN 2.5 GM/DL (3.2-4.5); POTASSIUM 4.2 MMOL/L (3.6-5.0)
[2020-05-01] MEDS: RT-ALBUTEROL INHALER HFA (VENTOLIN HFA) 18 GM IH SCH ×6 (02:57→21:27)
[2020-05-01 02:59] LABS: CALCIUM 7.9 MG/DL (8.5-10.1)
[2020-05-01 03:00] LABS: TOTAL PROTEIN 6.3 GM/DL (6.4-8.2)
[2020-05-01 03:02] LABS: BILIRUBIN,TOTAL 0.9 MG/DL (0.1-1.0)
[2020-05-01 03:03] LABS: PHOSPHORUS 6.5 MG/DL (2.3-4.7)
[2020-05-01 03:04] LABS: CREATININE SERUM 1.81 MG/DL (0.60-1.30)
[2020-05-01 03:06] LABS: MAGNESIUM 1.9 MG/DL (1.6-2.4)
[2020-05-01 03:11] LABS: ABG BASE EXCESS -5.8 MMOL/L (-2.5-2.5); ABG OXYGEN SATURATION 87 % (94-100); ABG PO2 78 MMHG (79-93); ABG TCO2 25.3 MMOL/L (21.0-31.0)
[2020-05-01 03:12] LABS: ALLENS TEST ARTLINE; INSPIRED O2 100; PATIENT TEMP 36; VENTILATOR YES
[2020-05-01 03:13] LABS: ABG PCO2 75 MMHG (35-45)
--- NOTE | 2020-05-01 03:52 | NUR ---
2011- RT to room 2018- Blake Buckner to room 2019- 20 of etomidate given 2020- 50 of Rocc given 2020- Pt intubated. 7.5 tube, 26 at teeth, bilateral breath sounds, RT bagging, rate 16, TV 400, PEEP 5, 100% FiO2 2027- EICU contacted via camera, vent settings changed. Rate 18, PEEP 16, TV 380, FiO2 100% 2031- BP 65/43, 1L LR given via pressure bag 2038- Attempted OG/NG placement, coiled in mouth, would not advance. CXR in room Pt started on Levo for BP pt sats continued to drop into the 70s when intubated, RT and this RN bagged patient for the better part of 3.5 hours. When pt sats would reach the 90s RT hooked pt back up to vent and pts sats slowly dropped. EICU camera in and said orders for Nimbex were being put in to paralyze pt to prevent overbreathing the vent. House sup attempted to contact pharmacy for the Nimbex. RT and this RN continued to bag the patient until Nimbex became available. Pt tolerated Nimbex well and began tolerating vent. Vent settings at this time (351) are: pressure control mode, TV 330, rate 22, PEEP 12, FiO2 100% Addendum: 05/01/20 at 0428 by SOPHIE PITTMAN RN See EMar for Nimbex time and TOF
--- NOTE | 2020-05-01 04:53 | NUR ---
did not give 2000 zosyn due to pt being intubated, bagged, and needing to titrate sedation and levo. 0400 zosyn given
[2020-05-01] MEDS: NOREPINEPHRINE 4 MG/250 ML 250 ML IV SCH ×4 (05:28→19:53)
[2020-05-01] MEDS: KCL 20 MEQ TAB (K-DUR) PO SCH (06:12)
[2020-05-01] MEDS: MAGNESIUM 1 GM/100 ML IVPB 100 ML IV SCH (06:13)
[2020-05-01] MEDS: POTASSIUM CL 10MEQ/50ML IVPB 50 ML IV SCH (06:14)
[2020-05-01] MEDS: inSUlin ASPART (NovoLOG) 1 UNIT/0.01 ML (CHARGE PER UNIT) SC SCH ×3 (06:31→18:09)
--- NOTE | 2020-05-01 08:12 | Diagnostic Imaging Report ---
INDICATION: Respiratory failure/COVID infection AP view of the chest is obtained with comparison made to the study of one day earlier. Extensive airspace disease is again seen throughout the lungs without significant change. Endotracheal tube remains in place with tip at the level of the thoracic inlet. Right upper extremity PICC reaches the mid to lower superior vena cava. IMPRESSION: Extensive bilateral airspace disease remains compatible with edema, pneumonitis or atypical pneumonia. Dictated by: Dictated on workstation # [id number]
[2020-05-01] MEDS: ENOXAPARIN 80 MG/0.8 ML (LOVENOX) SYR SC SCH ×2 (08:14→19:54)
[2020-05-01] MEDS: LEVOTHYROXINE 50 MCG (LEVOTHROID) TAB PO SCH (08:14)
[2020-05-01] MEDS: LACTATED RINGERS 1,000 ML IV SCH ×2 (10:35→18:09)
--- NOTE | 2020-05-01 10:42 | NUR ---
NGT PLACED INTO RIGHT NARE, PLACEMENT ASCERTAINED VIA AUSCULTATION, AND NOTED BROWNISH, YELLOW GASTRIC CONTENTS.
--- NOTE | 2020-05-01 11:10 | Physical Therapy Progress Note ---
Therapy Progress Note Orders received for PT evaluation. Pt intubated and sedated. Will continue to follow and initiate PT evaluation when pt medically stable. SURAJ COLVIN PT May 01, 2020 11:10
--- NOTE | 2020-05-01 11:31 | Progress Note - Hospitalist ---
KRISTINA LABRIGHT, 05/01/20 1131: Subjective HPI/CC On Admission Time Seen by Provider: 08:50 Subjective/Events-last exam Mr. Younger was seen and examined by Dr. Rojas in the ICU for acute hypoxic respiratory failure secondary to COVID19 infection. Pt was intubated on 05/01 by ED provider. At time of exam, patient was on pressure control mode with FiO2 90%, PEEP 12, TV 400, RR 22, peak pressure 54. Will order GI prophylaxis now that patient is intubated. Objective Exam Vital Signs Vital Signs Date Time Temp Pulse Resp B/P (MAP) Pulse Ox O2 Delivery O2 Flow Rate FiO2 05/01/20 10:18 61 14 98 85 05/01/20 10:00 161/110 (127) Mechanical Ventilator 100.00 05/01/20 08:54 35.1 Capillary Refill : Less Than 3 Seconds General Appearance: Other (intubated) Respiratory: Decreased Breath Sounds Cardiovascular: Regular Rate, Rhythm Gastrointestinal: Normal Bowel Sounds, Soft Results/Procedures Lab Laboratory Tests 05/01/20 02:40 Patient resulted labs reviewed. Imaging: Reviewed Imaging Report Assessment/Plan Assessment and Plan Assess & Plan/Chief Complaint Acute respiratory failure due to COVID-19 with ARDS * Intubated 05/01 due to increasing oxygen requirements * During exam, was on pressure control with FiO2 90%, PEEP 12, respiratory rate 22, TV 400, peak pressure 54 * Will consult with RT to reduce barotrauma from increased peak pressures * Changed to assist control, TV 380, RR 14, PEEP 11, inspiratory/expiratory ratio 1/2, FiO2 85%, peak pressure 44 and stable currently * Will order GI prophylaxis with protonix * Completed decadron 04/28 * Received 1 unit CP * Albuterol * Monitor closely * Repeat CXR Leukocytosis - worsening * Zosyn day 3 * Panculture unremarkable Elevated LFTs * Stable * Likely due to COVID * Monitor CKD 3 * Creatinine stable, unknown baseline HTN * BP well controlled, hold home meds HLD Hypothyroidism * Continue home meds Diet: regular GI/DVT ppx: protonix; lovenox - therapeutic dose FULL CODE Clinical Quality Measures DVT/VTE Risk/Contraindication: Risk Factor Score Per Nursin RFS Level Per Nursing on Admit: 2=Moderate SREEDHAR ROJAS MD 1/16/21 1344: Subjective HPI/CC On Admission Date Seen by Provider: May 01, 2020 Objective Exam General Appearance: Chronically ill, Other (intubated) Neck: Limited Range of Motion Respiratory: Crackles, Decreased Breath Sounds Cardiovascular: Regular Rate, Rhythm (Basis) Gastrointestinal: Normal Bowel Sounds Extremity: No Pedal Edema Supervisory-Addendum Brief Verification & Attestation Participated in pt care: history, MDM, physical Personally performed: exam, history, MDM, supervision of care Care discussed with: Medical Student, other (RT, nursing staff, eICU) Procedures: n/a Results interpretation: Verified all documentation Verification and Attestation of Medical Student E/M Service A medical student performed and documented this service in my presence. I reviewed and verified all information documented by the medical student and made modifications to such information, when appropriate. I personally performed the physical exam and medical decision making. Sreedhar Rojas, May 01, 2020,13:44 Discussed at length ventilator management with a high peak pressures from pressure control mode. Changed to assist control successfully without problem with decrease of the peak pressures to 44. We will also add Protonix for GI prophylaxis. KRISTINA ALBRIGHT, May 01, 2020 11:31 SREEDHAR ROJAS MD May 01, 2020 13:44
--- NOTE | 2020-05-01 13:38 | NUR ---
UPDATED DAUGHTER MICHAEL ON PT'S CONDITION PASSWORD VERIFIED.
[2020-05-01] MEDS ORDERED: VANCOMYCIN INJECTION 0.1 MG in NS (IVPB) 250 ML IV SCH (13:45)
--- NOTE | 2020-05-01 13:48 | NUR ---
Vancomycin - administer loading dose of 1500mg over 2 hours, then 750mg every 12 hours, maintenance. Trough due Sunday, 05/03 @ 1300.
[2020-05-01] MEDS ORDERED: VANCOMYCIN 1500 MG/NS 500 ML IVPB IV SCH ×2 (14:00)
[2020-05-01] MEDS: PANTOPRAZOLE 40 MG (PROTONIX) VIAL IV SCH (15:26)
[2020-05-01] MEDS ORDERED: ROCURONIUM 10 MG/ML 5 ML SYRINGE IV ONE (16:14)
[2020-05-01] MEDS ORDERED: ETOMIDATE IV SOLN 20 MG/10 ML VIAL IV ONE (16:14)
[2020-05-01] MEDS ORDERED: LIDOCAINE BOLUS 100 MG/5 ML (IMS) SYR INJ ONE (16:14)
[2020-05-02] VITALS (28 sets, daily range): BP systolic 88–143; BP diastolic 50–73
[2020-05-02] MEDS: RT-ALBUTEROL INHALER HFA (VENTOLIN HFA) 18 GM IH SCH ×6 (01:28→22:08)
[2020-05-02] MEDS: inSUlin ASPART (NovoLOG) 1 UNIT/0.01 ML (CHARGE PER UNIT) SC SCH ×5 (01:31→23:14)
[2020-05-02] MEDS: VANCOMYCIN 750 MG/NS 250 ML IVPB IV SCH ×4 (02:25→14:24)
[2020-05-02 02:55] LABS: ABG BASE EXCESS -6.3 MMOL/L (-2.5-2.5); ABG OXYGEN SATURATION 95 % (94-100); ABG PCO2 62 MMHG (35-45); ABG PO2 84 MMHG (79-93); ABG TCO2 23.3 MMOL/L (21.0-31.0)
[2020-05-02 02:56] LABS: BASOPHILS % (AUTO) 0 % (0-10); EOSINOPHILS # (AUTO) 0.2 10^3/uL (0.0-0.3); EOSINOPHILS % (AUTO) 1 % (0-10); HEMATOCRIT 28 % (40-54); HEMOGLOBIN 9.1 g/dL (13.3-17.7); LYMPHOCYTES # (AUTO) 0.6 10^3/uL (1.0-4.0); LYMPHOCYTES % (AUTO) 3 % (12-44); MEAN CORPUSCULAR HEMOGLOBIN 32 pg (25-34); MEAN CORPUSCULAR HGB CONC 32 g/dL (32-36); MEAN CORPUSCULAR VOLUME 100 fL (80-99); MEAN PLATELET VOLUME 12.1 fL (9.0-12.2); MONOCYTES # (AUTO) 0.3 10^3/uL (0.0-1.0); MONOCYTES % (AUTO) 1 % (0-12); NEUTROPHILS # (AUTO) 18.5 10^3/uL (1.8-7.8); NEUTROPHILS % (AUTO) 93 % (42-75); PLATELET COUNT 153 10^3/uL (130-400); WHITE BLOOD COUNT 19.9 10^3/uL (4.3-11.0)
[2020-05-02 02:57] LABS: ABG PH 7.16 (7.37-7.43); ALLENS TEST POSITIVE; INSPIRED O2 70; PATIENT TEMP 36.2; VENTILATOR YES
[2020-05-02 03:03] LABS: CALCIUM 7.3 MG/DL (8.5-10.1)
[2020-05-02 03:08] LABS: CREATININE SERUM 1.83 MG/DL (0.60-1.30); PHOSPHORUS 4.3 MG/DL (2.3-4.7)
[2020-05-02 03:10] LABS: MAGNESIUM 1.9 MG/DL (1.6-2.4)
[2020-05-02] MEDS: PIPERACILLIN/TAZOBACTAM (BULK) 4.5 GM in NS (IVPB) 100 ML IV SCH ×3 (04:00→19:52)
[2020-05-02] MEDS: NOREPINEPHRINE 4 MG/250 ML 250 ML IV SCH ×5 (04:20→21:25)
[2020-05-02] MEDS: CISATRACURIUM INJECTION 100 MG in NS (IVPB) 200 ML IV SCH ×5 (04:25→21:25)
[2020-05-02] MEDS: LACTATED RINGERS 1,000 ML IV SCH ×3 (04:26→22:22)
[2020-05-02] MEDS: KCL 20 MEQ TAB (K-DUR) PO SCH (04:27)
[2020-05-02] MEDS: MAGNESIUM 1 GM/100 ML IVPB 100 ML IV SCH (04:27)
[2020-05-02] MEDS: POTASSIUM CL 10MEQ/50ML IVPB 50 ML IV SCH (04:27)
[2020-05-02] MEDS: DexMEDEtomidine PRE MIX 100 ML IV SCH ×4 (05:48→19:53)
[2020-05-02] MEDS: PROPOFOL DRIP (ICU) 100 ML IV SCH ×3 (05:50→23:13)
[2020-05-02] MEDS: PANTOPRAZOLE 40 MG (PROTONIX) VIAL IV SCH (09:23)
[2020-05-02] MEDS: LEVOTHYROXINE 50 MCG (LEVOTHROID) TAB PO SCH (09:23)
[2020-05-02] MEDS: ENOXAPARIN 80 MG/0.8 ML (LOVENOX) SYR SC SCH ×2 (09:23→19:52)
--- NOTE | 2020-05-02 09:33 | Diagnostic Imaging Report ---
Clinical indications: Patient with daily chest x-ray. COVID positive. Follow-up exam. Exam: Portable chest x-ray upright view. Comparisons: Chest x-ray dated 05/01/2020. Findings: ET tube seen in good stable position. There is interval placement of a feeding tube with distal portion overlying the expected region of the gastric body. Right PICC line seen in stable position. There is progression of consolidation in left lung base and right lung base regions. Bilateral lung infiltrates throughout the lungs are again noted. There is no pleural effusion or pneumothorax. Pulmonary vasculature is obscured. Cardiac silhouette is within normal limits. IMPRESSION: 1: There is diffuse bilateral lung infiltrates which has progressed in both lung bases regions. 2: ET tube and right PICC line in good position. Interval placement of feeding tube. Report was faxed to [place] by jennifer at 9:32AM. Dictated by: Dictated on workstation # [id number]
--- NOTE | 2020-05-02 10:50 | Progress Note - Hospitalist ---
NATALEEKRISTINA, 05/02/20 1050: Subjective HPI/CC On Admission Time Seen by Provider: 09:42 Subjective/Events-last exam Mr. Younger was seen and examined by Dr. Rojas in the ICU for acute respiratory failure secondary to COVID19 infection. He is currently mechanically intubated with FiO2 60%, PEEP 11, RR 14, TV 380, peak pressure 42. Sedated with precedex, nimbex, fentanyl, propofol. Will increase RR to improve respiratory acidosis. On levophed but is still having hypotension. Objective Exam Vital Signs Vital Signs Date Time Temp Pulse Resp B/P (MAP) Pulse Ox O2 Delivery O2 Flow Rate FiO2 05/02/20 11:00 78 20 125/50 (75) 92 Mechanical Ventilator 60.00 05/02/20 09:51 60 05/02/20 09:38 35.4 Capillary Refill : Less Than 3 Seconds General Appearance: Other (intubated) Respiratory: Lungs Clear Cardiovascular: Regular Rate, Rhythm, Normal Peripheral Pulses Gastrointestinal: Normal Bowel Sounds, Soft Results/Procedures Lab Laboratory Tests 05/02/20 02:30 Patient resulted labs reviewed. Imaging: Reviewed Imaging Report Assessment/Plan Assessment and Plan Assess & Plan/Chief Complaint Acute respiratory failure due to COVID19 with ARDS * Intubated 05/01 due to increasing oxygen requirements * FiO2 60%, PEEP 11, RR 14, peak pressure 42 - will increase to 16 to improve respiratory acidosis * Completed decadron 04/28 * Received 1 unit CP * Albuterol * Monitor closely * Repeat CXR Leukocytosis - worsening * Zosyn day 4 * Panculture unremarkable Elevated LFTs * Stable * Likely due to COVID * Monitor CKD 3 * Creatinine stable, unknown baseline HTN * BP well controlled, hold home meds HLD Hypothyroidism * Continue home meds Diet: npo - nutrition consult for tube feedings GI/DVT ppx: protonix; lovenox - therapeutic dose FULL CODE Critical Care: Critically Ill Patient Clinical Quality Measures DVT/VTE Risk/Contraindication: Risk Factor Score Per Nursin RFS Level Per Nursing on Admit: 2=Moderate SREEDHAR ROJAS MD 05/02/20 1147: Subjective HPI/CC On Admission Date Seen by Provider: May 02, 2020 Supervisory-Addendum Brief Verification & Attestation Participated in pt care: history, MDM, physical Personally performed: exam, history, MDM Care discussed with: Medical Student, other (Respiratory therapist, RN) Procedures: n/a Verification and Attestation of Medical Student E/M Service A medical student performed and documented this service in my presence. I reviewed and verified all information documented by the medical student and made modifications to such information, when appropriate. I personally performed the physical exam and medical decision making. Sreedhar Rojas, May 02, 2020,11:47 Discussed in detail the ventilation with respiratory therapist today. Nursing staff notes that his blood pressure was dropping anytime we turned him on his right side. pH was 7.16 with an elevated CO2. To decrease the CO2 will go ahead and increase the respiratory rate without increasing the PEEP right now so that we do not decrease the cardiac output. Blood pressures have been quite soft. This especially occurs as previously stated when he is turned on his right side. He has been tolerating assist control quite well. KRISTINA ALBRIGHT, May 02, 2020 10:50 SREEDHAR ROJAS MD May 02, 2020 11:47
--- NOTE | 2020-05-02 11:23 | NUR ---
SPOKE TO PT'S REGARDING CONSENT FOR ARTERIAL LINE, PER SHE ASKED ME TO CALL DAUGHTER MICHAEL, SPOKE TO MICHAEL AND CONSENT OBTAINED WITH Radha SEWELL RN 2ND WITNESS.
[2020-05-02 12:19] LABS: ABG BASE EXCESS -6.9 MMOL/L (-2.5-2.5); ABG OXYGEN SATURATION 95 % (94-100); ABG PCO2 60 MMHG (35-45); ABG PO2 87 MMHG (79-93); ABG TCO2 22.4 MMOL/L (21.0-31.0)
[2020-05-02 12:20] LABS: ABG PH 7.16 (7.37-7.43); ALLENS TEST YES-POS; INSPIRED O2 60%; PATIENT TEMP 36.8; VENTILATOR YES
--- NOTE | 2020-05-02 20:23 | NUR ---
PT DAUGHTER LOREN UPDATED ON PT STATUS AT THIS TIME. ALL QUESTIONS AND CONCERNS WERE ADDRESSED.
[2020-05-02] MEDS: fentaNYL DRIP PRE-MIX 250 ML IV SCH (23:13)
[2020-05-03] VITALS (30 sets, daily range): BP systolic 85–150; BP diastolic 55–79
[2020-05-03] MEDS: RT-ALBUTEROL INHALER HFA (VENTOLIN HFA) 18 GM IH SCH ×6 (01:37→21:41)
[2020-05-03] MEDS: NOREPINEPHRINE 4 MG/250 ML 250 ML IV SCH ×5 (01:53→23:22)
[2020-05-03] MEDS: VANCOMYCIN 750 MG/NS 250 ML IVPB IV SCH ×2 (01:53)
[2020-05-03] MEDS: DexMEDEtomidine PRE MIX 100 ML IV SCH (01:54)
[2020-05-03] MEDS: LACTATED RINGERS 1,000 ML IV SCH ×3 (01:55→22:35)
[2020-05-03 01:58] LABS: ABG BASE EXCESS -6.1 MMOL/L (-2.5-2.5); ABG OXYGEN SATURATION 96 % (94-100); ABG PCO2 46 MMHG (35-45); ABG PO2 71 MMHG (79-93); ABG TCO2 21.5 MMOL/L (21.0-31.0)
[2020-05-03 01:59] LABS: ABG PH 7.26 (7.37-7.43); ALLENS TEST POSITIVE; INSPIRED O2 50; PATIENT TEMP 36; VENTILATOR YES
[2020-05-03 02:14] LABS: BASOPHILS % (AUTO) 0 % (0-10); EOSINOPHILS # (AUTO) 0.1 10^3/uL (0.0-0.3); EOSINOPHILS % (AUTO) 1 % (0-10); HEMATOCRIT 26 % (40-54); HEMOGLOBIN 8.7 g/dL (13.3-17.7); LYMPHOCYTES # (AUTO) 0.6 10^3/uL (1.0-4.0); LYMPHOCYTES % (AUTO) 4 % (12-44); MEAN CORPUSCULAR HEMOGLOBIN 33 pg (25-34); MEAN CORPUSCULAR HGB CONC 34 g/dL (32-36); MEAN CORPUSCULAR VOLUME 97 fL (80-99); MEAN PLATELET VOLUME 11.3 fL (9.0-12.2); MONOCYTES # (AUTO) 0.4 10^3/uL (0.0-1.0); MONOCYTES % (AUTO) 2 % (0-12); NEUTROPHILS # (AUTO) 14.5 10^3/uL (1.8-7.8); NEUTROPHILS % (AUTO) 92 % (42-75); PLATELET COUNT 148 10^3/uL (130-400); WHITE BLOOD COUNT 15.8 10^3/uL (4.3-11.0)
[2020-05-03] MEDS: PIPERACILLIN/TAZOBACTAM (BULK) 4.5 GM in NS (IVPB) 100 ML IV SCH ×3 (02:30→18:24)
[2020-05-03 02:31] LABS: POTASSIUM 3.7 MMOL/L (3.6-5.0)
[2020-05-03 02:32] LABS: CALCIUM 7.5 MG/DL (8.5-10.1)
[2020-05-03 02:36] LABS: PHOSPHORUS 2.9 MG/DL (2.3-4.7)
[2020-05-03 02:37] LABS: CREATININE SERUM 1.56 MG/DL (0.60-1.30)
[2020-05-03 02:39] LABS: MAGNESIUM 1.9 MG/DL (1.6-2.4)
[2020-05-03] MEDS: POTASSIUM CL 10MEQ/50ML IVPB 50 ML IV SCH ×5 (03:13→08:30)
[2020-05-03] MEDS: MAGNESIUM 1 GM/100 ML IVPB 100 ML IV SCH (03:14)
[2020-05-03] MEDS: KCL 20 MEQ TAB (K-DUR) PO SCH (03:14)
--- NOTE | 2020-05-03 04:47 | Pulmonary Progress Note ---
Subjective Time Seen by a Provider: 04:41 Subjective/Events-last exam Pt is intubated on vent. Sepsis Event Evaluation Height, Weight, BMI Height: '" Weight: lbs. oz. kg; 30.11 BMI Method: Focused Exam Lactate Level 05/02/20 14:20: Lactic Acid Level 0.78 Exam Exam Vital Signs Date Time Temp Pulse Resp B/P (MAP) Pulse Ox O2 Delivery O2 Flow Rate FiO2 05/03/20 03:06 36.1 05/03/20 01:54 59 05/03/20 01:53 136/73 05/03/20 01:42 61 16 96 50 05/03/20 00:00 61 16 109/61 (77) 96 Mechanical Ventilator 50.00 05/02/20 23:13 109/64 05/02/20 23:12 36.0 05/02/20 23:00 60 16 109/64 (82) 96 Mechanical Ventilator 50.00 05/02/20 22:08 59 16 95 50 05/02/20 22:00 61 16 113/64 (83) 96 Mechanical Ventilator 50.00 05/02/20 21:25 122/73 05/02/20 21:00 59 16 118/72 (101) 96 Mechanical Ventilator 50.00 05/02/20 20:00 92 Mechanical Ventilator 50 05/02/20 20:00 58 16 121/71 (97) 95 Mechanical Ventilator 50.00 05/02/20 19:56 35.8 Mechanical Ventilator 50.00 05/02/20 19:53 58 05/02/20 19:19 35.0 05/02/20 19:00 56 16 105/72 (87) 94 Mechanical Ventilator 60.00 05/02/20 19:00 56 05/02/20 18:23 59 16 95 50 05/02/20 18:10 61 102/60 05/02/20 18:00 60 16 102/60 (74) 94 Mechanical Ventilator 60.00 05/02/20 17:00 60 16 95 Mechanical Ventilator 60.00 05/02/20 16:00 61 16 113/73 (86) 95 Mechanical Ventilator 60.00 05/02/20 15:05 35.2 05/02/20 15:00 60 16 95 Mechanical Ventilator 60.00 05/02/20 14:15 61 104/66 05/02/20 14:15 36.0 61 16 104/66 97 Mechanical Ventilator 05/02/20 14:00 61 16 104/66 (79) 97 Mechanical Ventilator 60.00 05/02/20 13:52 64 16 94 60 05/02/20 13:00 64 05/02/20 13:00 60 16 104/66 (79) 96 Mechanical Ventilator 60.00 05/02/20 12:08 36.0 05/02/20 12:00 59 16 118/55 (76) 95 Mechanical Ventilator 60.00 05/02/20 11:00 78 20 125/50 (75) 92 Mechanical Ventilator 60.00 05/02/20 10:57 65 99/58 05/02/20 10:25 Mechanical Ventilator 60.00 05/02/20 10:00 65 96/54 (68) 94 Mechanical Ventilator 70.00 05/02/20 09:51 65 16 94 60 05/02/20 09:47 69 85/52 05/02/20 09:38 35.4 69 14 85/52 93 Mechanical Ventilator 05/02/20 09:24 35.4 05/02/20 09:00 63 107/68 (81) 98 Mechanical Ventilator 70.00 05/02/20 08:35 92 Mechanical Ventilator 60 05/02/20 08:00 66 27 98/64 (75) 96 Mechanical Ventilator 70.00 05/02/20 07:00 69 05/02/20 07:00 67 27 103/65 (78) 95 Mechanical Ventilator 70.00 05/02/20 06:54 67 14 97 65 05/02/20 06:00 66 18 102/69 (80) 97 Mechanical Ventilator 70.00 05/02/20 05:50 71 05/02/20 05:48 72 05/02/20 05:00 66 17 105/68 (80) 96 Mechanical Ventilator 70.00 I & O 05/03/20 07:00 Intake Total 1190 ml Output Total 1650 ml Balance -460 ml Height & Weight Height: '" Weight: lbs. oz. kg; 30.11 BMI Method: General Appearance: Chronically ill (Anxious) HEENT: PERRL/EOMI, Moist Mucous Membranes; No Scleral Icterus (L), No Scleral Icterus (R) Neck: Limited Range of Motion Respiratory: Crackles (bibasilar), Decreased Breath Sounds, Other (Tachypnea) Cardiovascular: Tachycardia Capillary Refill: Less Than 3 Seconds Extremity: No Pedal Edema Neurologic/Psychiatric: Other (Sedated on vent. ) Skin: Normal Color, Warm/Dry Results Lab Laboratory Tests 05/02/20 02:30 05/03/20 02:00 Assessment/Plan Assessment/Plan Acute respiratory failure due to COVID-19 with ARDS -Vent 420/16/11/ 50% -EICU managed through the weekend -Nimbex, Fentanyl, propofol 30 -Start TF per dietary recs -Start Proning pt =s/p PCT - CXR -reviewed s/p Decadron s/p Convalescent plasma x1 Pneumonis secondary infection -Brown cultures pending -MRSA swab is negative -D/C vanco -Start eraxis secondary to fungal in sputum Renal failure -Monitor Hypotension -Currently on Levophed -Titrate sedation down Leukocytosis -Brown culture and start Zosyn Elevated LFTs Stable Likely due to COVID Monitor CKD 3 Creatinine stable, unknown baseline HTN BP well controlled, hold home meds HLD Hypothyroidism Continue home meds DVT ppx: Lovenox - currently theraputic dose RADHA SPICER DO May 03, 2020 04:47
[2020-05-03] MEDS: inSUlin ASPART (NovoLOG) 1 UNIT/0.01 ML (CHARGE PER UNIT) SC SCH ×4 (05:19→23:13)
[2020-05-03] MEDS: PROPOFOL DRIP (ICU) 100 ML IV SCH ×4 (05:21→20:19)
--- NOTE | 2020-05-03 06:30 | NUR ---
pt daughter dayday given update. all questions and concerns were addressed at this time
[2020-05-03] MEDS ORDERED: ANIDULAFUNGIN INJECTION 200 MG in NS (IVPB) 250 ML IV ONE (08:00)
[2020-05-03] MEDS: PANTOPRAZOLE 40 MG (PROTONIX) VIAL IV SCH (08:02)
[2020-05-03] MEDS: LEVOTHYROXINE 50 MCG (LEVOTHROID) TAB PO SCH (08:02)
[2020-05-03] MEDS: ENOXAPARIN 80 MG/0.8 ML (LOVENOX) SYR SC SCH ×2 (08:02→20:18)
--- NOTE | 2020-05-03 08:02 | Physical Therapy Progress Note ---
Therapy Progress Note Patient is sedated and intubated. PT will continue to monitor patient status. KORI BENAVIDEZ PT May 03, 2020 08:02
--- NOTE | 2020-05-03 08:47 | Diagnostic Imaging Report ---
INDICATION: Covid pneumonia. Comparison with 05/02/2020. FINDINGS: ET tube, NG tube and right PICC line remain in good position. There is relatively good aeration of both lungs. There has been some decrease in density of infiltrate within the right lung since previous exam. Left lower lobe infiltrate is unchanged. No pneumothorax or pleural effusion. IMPRESSION: Postoperative residue with mixed findings. Some decrease in density of infiltrate right lung today. Dictated by: Dictated on workstation # [id number]
[2020-05-03] MEDS: ARTIFICIAL TEARS OINT (LACRI-LUBE) 3.5 GM TUBE OU SCH ×4 (08:59→23:15)
--- NOTE | 2020-05-03 11:27 | Physical Therapy Progress Note ---
Therapy Progress Note Non Skilled PROM B U/LE all available planes. ANA ROQUE PT May 03, 2020 11:27
--- NOTE | 2020-05-03 12:31 | NUR ---
SPOKE WITH PT DAUGHTER GEORGE AT THIS TIME. PROVIDED UPDATES ON PATIENT, ET ANSWERED ANY QUESTIONS SHE HAD.
[2020-05-03] MEDS ORDERED: TROUGH ORDER-PHARMACY XX NR (13:00)
--- NOTE | 2020-05-03 13:48 | NUR ---
Received dietary consult for vent status. Would recommend TF of Pulmocare via 60ml bolus feeds q4h with 30ml free water flushes before/after each bolus. Increase TF by 30ml q8h as tolerated toward goal of 150ml bolus feeds q4h. Will continue to follow and reassess as pt needs, intake, and status change. Radha Wilde, MS RD LD [phone] cell
--- NOTE | 2020-05-03 13:58 | Occ Therapy Progress Note ---
Therapy Progress Note Pt. currently on sedation and mechanical ventilation. Will need new orders when pt. is medically stable for skilled therapy assistance. 1358 MAX TODD OT May 03, 2020 13:58
--- NOTE | 2020-05-03 14:30 | NUR ---
CONTACTED DR. SPICER REGARDING PATIENT INCREASED OXYGEN NEEDS SINCE PRONING. ORDER RECEIVED TO INCREASE PEEP. RT NOTIFIED.
[2020-05-03] MEDS: fentaNYL DRIP PRE-MIX 250 ML IV SCH (17:33)
[2020-05-03] MEDS ORDERED: ROCURONIUM 10 MG/ML 5 ML SYRINGE IV ONE ×2 (18:01→18:15)
--- NOTE | 2020-05-03 18:10 | NUR ---
BORDER GUARD NOTIFIED THIS RN PATIENT O2 SATS IN 80'S. THIS RN ENTERED PATIENT ROOM, GAVE PATIENT 100% O2 ON VENT ET SUCTIONED PATIENT. NO RESOLVE. THIS RN BEGAN BAGGING PATIENT, SECOND RN ENTERED ROOM. CALL PLACED TO EICU REGARDING PATIENT. NEW ORDERS RECEIVED TO PARALYZE PATIENT. ORDER FOR ONE TIME DOSE OF AMANDA ET TO START NIMBEX. [facility] RT ENTERED ROOM ET BEGAN BAGGING PATIENT.
[2020-05-03] MEDS: CISATRACURIUM INJECTION 100 MG in NS (IVPB) 200 ML IV SCH ×2 (18:19→21:25)
[2020-05-03] MEDS ORDERED: FUROSEMIDE 40 MG/4 ML INJ (LASIX) ONE (18:38)
--- NOTE | 2020-05-03 18:43 | NUR ---
CALL PLACED TO EICU, PATIENT O2 SATURATIONS STILL NOT UP, RT STILL BAGGING PATIENT AFTER PARALYZING PT. GAVE ORDERS FOR LASIX AT THIS TIME ET STATED "SHE DID NOT KNOW WHAT ELSE CAN BE DONE AT THIS TIME". CALL PLACED TO DAUGHTER LOREN ET UPDATED ON CURRENT STATUS
--- NOTE | 2020-05-03 20:00 | NUR ---
This telegraphic typewriter repairer spoke with E ICU dr at this time to update on patient current condition, medications and vent settings. No new orders at this time.
--- NOTE | 2020-05-03 20:14 | NUR ---
Call placed to patient gino Sneed at this time. Telephone update given. Nedra will update patient . Nedra informed that patient is unstable at this time requiring 100% oxygen on the ventilator and is also requiring blood pressure support medication. Reiterated with the family at this time that this patient remains a full code. Daughter Nedra stated that patient is to remain a full code.
--- NOTE | 2020-05-03 22:40 | NUR ---
Call placed to patient daughter Nedra at this time for an update on patient condition. Answered all questions. Patient daughter appreciative of update.
[2020-05-04] VITALS (29 sets, daily range): BP systolic 83–144; BP diastolic 43–77
[2020-05-04] MEDS: RT-ALBUTEROL INHALER HFA (VENTOLIN HFA) 18 GM IH SCH ×6 (01:50→23:01)
[2020-05-04] MEDS: PROPOFOL DRIP (ICU) 100 ML IV SCH ×5 (02:13→20:12)
[2020-05-04] MEDS: PIPERACILLIN/TAZOBACTAM (BULK) 4.5 GM in NS (IVPB) 100 ML IV SCH ×3 (02:15→17:30)
[2020-05-04 02:32] LABS: ABG BASE EXCESS -8.9 MMOL/L (-2.5-2.5); ABG OXYGEN SATURATION 98 % (94-100); ABG PCO2 60 MMHG (35-45); ABG PO2 137 MMHG (79-93); ABG TCO2 20.9 MMOL/L (21.0-31.0)
[2020-05-04 02:33] LABS: BASOPHILS % (AUTO) 0 % (0-10); EOSINOPHILS % (AUTO) 0 % (0-10); HEMATOCRIT 27 % (40-54); HEMOGLOBIN 8.9 g/dL (13.3-17.7); LYMPHOCYTES # (AUTO) 0.5 10^3/uL (1.0-4.0); LYMPHOCYTES % (AUTO) 2 % (12-44); MEAN CORPUSCULAR HEMOGLOBIN 33 pg (25-34); MEAN CORPUSCULAR HGB CONC 33 g/dL (32-36); MEAN CORPUSCULAR VOLUME 99 fL (80-99); MEAN PLATELET VOLUME 10.7 fL (9.0-12.2); MONOCYTES # (AUTO) 0.6 10^3/uL (0.0-1.0); MONOCYTES % (AUTO) 3 % (0-12); NEUTROPHILS # (AUTO) 16.8 10^3/uL (1.8-7.8); NEUTROPHILS % (AUTO) 91 % (42-75); PLATELET COUNT 151 10^3/uL (130-400); WHITE BLOOD COUNT 18.5 10^3/uL (4.3-11.0)
[2020-05-04 02:33] LABS: ALLENS TEST POSITIVE; INSPIRED O2 90; PATIENT TEMP 36.4; VENTILATOR YES
[2020-05-04 02:36] LABS: ABG PH 7.12 (7.37-7.43)
[2020-05-04 02:48] LABS: POTASSIUM 4.6 MMOL/L (3.6-5.0)
[2020-05-04 02:49] LABS: CALCIUM 7.8 MG/DL (8.5-10.1)
[2020-05-04 02:53] LABS: CREATININE SERUM 2.07 MG/DL (0.60-1.30); PHOSPHORUS 5.2 MG/DL (2.3-4.7)
[2020-05-04 02:55] LABS: MAGNESIUM 1.9 MG/DL (1.6-2.4)
[2020-05-04] MEDS: POTASSIUM CL 10MEQ/50ML IVPB 50 ML IV SCH (02:57)
[2020-05-04] MEDS: inSUlin ASPART (NovoLOG) 1 UNIT/0.01 ML (CHARGE PER UNIT) SC SCH ×4 (02:57→23:43)
[2020-05-04] MEDS: KCL 20 MEQ TAB (K-DUR) PO SCH (02:57)
[2020-05-04] MEDS: MAGNESIUM 1 GM/100 ML IVPB 100 ML IV SCH (02:58)
[2020-05-04] MEDS: ARTIFICIAL TEARS OINT (LACRI-LUBE) 3.5 GM TUBE OU SCH ×6 (04:02→23:43)
--- NOTE | 2020-05-04 04:49 | Pulmonary Progress Note ---
Subjective Time Seen by a Provider: 04:44 Subjective/Events-last exam Pt is doing worse today and requiring more oxygen. Sepsis Event Evaluation Height, Weight, BMI Height: '" Weight: lbs. oz. kg; 30.11 BMI Method: Focused Exam Lactate Level 05/02/20 14:20: Lactic Acid Level 0.78 Exam Exam Vital Signs Date Time Temp Pulse Resp B/P (MAP) Pulse Ox O2 Delivery O2 Flow Rate FiO2 05/04/20 04:00 36.4 Mechanical Ventilator 60.00 05/04/20 03:00 22 Mechanical Ventilator 70.00 05/04/20 02:24 36.4 22 Mechanical Ventilator 90.00 05/04/20 02:13 98 111/77 05/04/20 01:50 100 22 96 100 05/04/20 01:00 105 05/03/20 23:22 110 101/69 05/03/20 23:17 Mechanical Ventilator 95.00 05/03/20 23:05 36.1 22 Mechanical Ventilator 90.00 05/03/20 21:45 22 Mechanical Ventilator 100.00 05/03/20 21:42 118 22 98 100 05/03/20 21:25 120 107/76 05/03/20 20:19 115 84/53 05/03/20 20:00 85 Mechanical Ventilator 100 05/03/20 20:00 Mechanical Ventilator 100.00 05/03/20 19:29 120 22 85 100 05/03/20 19:26 36.9 05/03/20 19:00 36.8 Mechanical Ventilator 100.00 05/03/20 19:00 123 05/03/20 18:10 120 22 88 100 05/03/20 18:00 99 35 85/63 (70) 83 Mechanical Ventilator 70.00 05/03/20 17:00 108 24 127/73 (91) 88 Mechanical Ventilator 70.00 05/03/20 16:23 98 139/77 05/03/20 16:00 106 19 121/68 (85) 90 Mechanical Ventilator 70.00 05/03/20 15:34 37.3 05/03/20 15:00 105 22 129/61 (83) 88 Mechanical Ventilator 70.00 05/03/20 14:39 98 22 91 90 05/03/20 14:00 91 22 150/74 (99) 85 Mechanical Ventilator 70.00 05/03/20 13:16 87 05/03/20 13:00 87 23 141/79 (99) 87 Mechanical Ventilator 70.00 05/03/20 12:00 80 19 129/71 (90) 87 Mechanical Ventilator 60.00 05/03/20 11:32 70 114/70 05/03/20 11:30 36.8 05/03/20 11:20 75 104/60 05/03/20 11:00 68 22 122/64 (83) 94 Mechanical Ventilator 60.00 05/03/20 10:17 67 22 95 50 05/03/20 10:00 64 22 113/65 (81) 98 Mechanical Ventilator 60.00 05/03/20 09:00 67 22 104/55 (71) 95 Mechanical Ventilator 50.00 05/03/20 08:00 56 22 105/66 (79) 95 Mechanical Ventilator 50.00 05/03/20 08:00 94 Mechanical Ventilator 50 05/03/20 07:35 36.2 05/03/20 07:04 59 22 95 50 05/03/20 07:00 57 22 110/73 (85) 95 Mechanical Ventilator 50.00 05/03/20 06:47 58 05/03/20 06:00 59 22 114/69 (84) 96 Mechanical Ventilator 50.00 05/03/20 05:21 97/55 05/03/20 05:21 97/55 05/03/20 05:00 61 16 102/58 (73) 97 Mechanical Ventilator 50.00 I & O 05/04/20 07:00 Intake Total 2975 ml Output Total 1325 ml Balance 1650 ml Height & Weight Height: '" Weight: lbs. oz. kg; 30.11 BMI Method: General Appearance: Chronically ill (Anxious) HEENT: PERRL/EOMI, Moist Mucous Membranes; No Scleral Icterus (L), No Scleral Icterus (R) Neck: Limited Range of Motion Respiratory: Crackles (bibasilar), Decreased Breath Sounds, Other (Tachypnea) Cardiovascular: Tachycardia Capillary Refill: Less Than 3 Seconds Extremity: No Pedal Edema Neurologic/Psychiatric: Other (Sedated on vent. ) Skin: Normal Color, Warm/Dry Results Lab Laboratory Tests 05/03/20 02:00 05/04/20 02:20 Assessment/Plan Assessment/Plan Acute respiratory failure due to COVID-19 with ARDS -Vent 320/22/14/ 50% -Increase Vt to 350 and increase RR to 24. Repeat ABG in 1hr -EICU managed through the weekend -Nimbex, Fentanyl, propofol 30 -TF per dietary recs - Proning pt =s/p PCT - CXR -reviewed s/p Decadron s/p Convalescent plasma x1 Metabolic acidosis -Give 2 amps of bicarb - Probable acute PE -Pt is on theraputic dose lovenox -Will plan on treating with anticoagulation x 3 mo Pneumonis secondary infection -Brown cultures pending -MRSA swab is negative -D/C vanco -Start eraxis secondary to fungal in sputum Renal failure -Monitor -Lr is currently 100cc/hr Hypotension -Currently on Levophed -Titrate sedation down Leukocytosis -Brown culture and start Zosyn Elevated LFTs Stable Likely due to COVID Monitor acute on CKD 3 monitor HTN BP well controlled, hold home meds HLD Hypothyroidism Continue home meds DVT ppx: Lovenox - currently theraputic dose I called and discussed with family. I answered all questions to the best of my ability RADHA SPICER DO May 04, 2020 04:49
[2020-05-04] MEDS ORDERED: SODIUM BICARB 8.4% 50 MEQ/50 ML VIAL IV ONE (05:00)
[2020-05-04] MEDS: NOREPINEPHRINE 4 MG/250 ML 250 ML IV SCH ×5 (05:19→22:14)
[2020-05-04] MEDS ORDERED: LACTATED RINGERS 1,000 ML IV ONE (06:00)
[2020-05-04 06:54] LABS: ABG BASE EXCESS -5.4 MMOL/L (-2.5-2.5); ABG OXYGEN SATURATION 91 % (94-100); ABG PCO2 53 MMHG (35-45); ABG PO2 55 MMHG (79-93); ABG TCO2 23.1 MMOL/L (21.0-31.0)
[2020-05-04 06:56] LABS: ALLENS TEST POSITIVE; INSPIRED O2 50; PATIENT TEMP 35.4; VENTILATOR YES
[2020-05-04 06:57] LABS: ABG PH 7.22 (7.37-7.43)
--- NOTE | 2020-05-04 07:36 | Anesthesia-Procedure Note ---
Procedures/Interventions Procedure Start/Stop/Diagnosis Date of Procedure: May 02, 2020 Start Time: 13:00 Preprocedural Diagnosis: called to start arterial line on covid +/ventilated/sedated patient. Brief History Late entry. Multiple attempts to place arterial line on left radial. Right extremity has limb alert so unable to use. Pt on vasopressor infusion and extremity edematous. Ultrasound guided artery access, but unable to get catheter to advance with either 20G or 22G. Procedure aborted after 4 failed attempts. [id number], [id number] Stop Time: 13:30 Arterial Line Type: Radial (left) Location: Left Procedure: prepped, draped in sterile fashion, patient tolerated procedure well, no immediate complications, post procedure area cleaned, post procedure dressing applied JENA WASHINGTON CRNA May 04, 2020 07:36
--- NOTE | 2020-05-04 07:44 | Diagnostic Imaging Report ---
INDICATION: COVID pneumonia Portable chest 3:09 AM ET tube projects over the trachea. NG tube appears to enter the stomach. Right upper extremity PICC line tip projects over the SVC. There are diffuse alveolar infiltrates in the lungs. There is no appreciable effusion or pneumothorax. IMPRESSION: Stable chest since previous day with diffuse alveolar infiltrates. Dictated by: Dictated on workstation # [id number]
--- NOTE | 2020-05-04 08:03 | Physical Therapy Progress Note ---
Therapy Progress Note Patient is sedated and intubated. PT will continue to monitor patient status. KORI BENAVIDEZ PT May 04, 2020 08:03
[2020-05-04] MEDS: PANTOPRAZOLE 40 MG (PROTONIX) VIAL IV SCH (08:11)
[2020-05-04] MEDS: ENOXAPARIN 80 MG/0.8 ML (LOVENOX) SYR SC SCH ×2 (08:11→20:12)
[2020-05-04] MEDS: CALCIUM ACETATE 667 MG CAP (PHOSLO) PO SCH ×3 (08:11→17:34)
[2020-05-04] MEDS: LEVOTHYROXINE 50 MCG (LEVOTHROID) TAB PO SCH (08:11)
[2020-05-04] MEDS: ANIDULAFUNGIN INJECTION 100 MG in NS (IVPB) 100 ML IV SCH (08:11)
--- NOTE | 2020-05-04 10:38 | Anesthesia-Procedure Note ---
Procedures/Interventions Procedure Start/Stop/Diagnosis Date of Procedure: May 04, 2020 Start Time: 10:00 Referring Physician: Dr Monique Preprocedural Diagnosis: Resp. Failure, COVID + Brief History Pt intubated and sedated, on ventilator. Called to ICU 4 for arterial line placement. Stop Time: 10:25 Postprocedural Diagnosis: same Arterial Line Arterial Line Catheter: 20G Type: Radial Location: Left Procedure: prepped, draped in sterile fashion (ChloraPrep), good wave-form was obtained, patient tolerated procedure well, no immediate complications, post procedure area cleaned, post procedure dressing applied SANDIP GARCIA DO May 04, 2020 10:38
[2020-05-04] MEDS: fentaNYL DRIP PRE-MIX 250 ML IV SCH (11:01)
--- NOTE | 2020-05-04 11:15 | NUR ---
CALL PLACED TO PATIENT DTR GEORGE AT THIS TIME. UPDATED ON PATIENT CONDITION. ANSWERED QUESTIONS. DTR THANKED THIS NURSE FOR CALL.
[2020-05-04] MEDS: LACTATED RINGERS 1,000 ML IV SCH ×3 (13:52→23:43)
--- NOTE | 2020-05-04 13:53 | NUR ---
Note pt currently receiving Pulmocare via 60ml bolus feeds q4h with 30ml free water flushes before/after each bolus. Increase TF by 30ml q8h as tolerated toward goal of 150ml bolus feeds q4h. Will continue to follow and reassess as pt needs, intake, and status change. Radha Wilde, MS RD LD [phone] cell
[2020-05-04] MEDS: CISATRACURIUM INJECTION 100 MG in NS (IVPB) 200 ML IV SCH (14:33)
--- NOTE | 2020-05-04 18:04 | NUR ---
pulmicare tube feed to be held per recommendations of RD r/t patient being paralyzed with Nimbex.
--- NOTE | 2020-05-04 18:04 | NUR ---
Call placed to Dtr. cox update on day. Answered questions, dtr thanked this RN for updates.
[2020-05-05] VITALS (30 sets, daily range): BP systolic 71–146; BP diastolic 45–76
[2020-05-05] MEDS: PROPOFOL DRIP (ICU) 100 ML IV SCH ×4 (01:04→17:22)
[2020-05-05] MEDS: RT-ALBUTEROL INHALER HFA (VENTOLIN HFA) 18 GM IH SCH ×6 (01:45→21:38)
[2020-05-05] MEDS: PIPERACILLIN/TAZOBACTAM (BULK) 4.5 GM in NS (IVPB) 100 ML IV SCH (02:04)
[2020-05-05 03:51] LABS: BASOPHILS % (AUTO) 0 % (0-10); EOSINOPHILS # (AUTO) 0.1 10^3/uL (0.0-0.3); EOSINOPHILS % (AUTO) 1 % (0-10); HEMATOCRIT 24 % (40-54); HEMOGLOBIN 8.1 g/dL (13.3-17.7); LYMPHOCYTES # (AUTO) 0.4 10^3/uL (1.0-4.0); LYMPHOCYTES % (AUTO) 3 % (12-44); MEAN CORPUSCULAR HEMOGLOBIN 32 pg (25-34); MEAN CORPUSCULAR HGB CONC 33 g/dL (32-36); MEAN CORPUSCULAR VOLUME 96 fL (80-99); MEAN PLATELET VOLUME 10.9 fL (9.0-12.2); MONOCYTES # (AUTO) 0.5 10^3/uL (0.0-1.0); MONOCYTES % (AUTO) 4 % (0-12); NEUTROPHILS # (AUTO) 11.9 10^3/uL (1.8-7.8); NEUTROPHILS % (AUTO) 89 % (42-75); PLATELET COUNT 136 10^3/uL (130-400); WHITE BLOOD COUNT 13.4 10^3/uL (4.3-11.0)
[2020-05-05 04:07] LABS: POTASSIUM 3.8 MMOL/L (3.6-5.0)
[2020-05-05 04:08] LABS: CALCIUM 7.7 MG/DL (8.5-10.1)
[2020-05-05] MEDS: inSUlin ASPART (NovoLOG) 1 UNIT/0.01 ML (CHARGE PER UNIT) SC SCH ×4 (04:09→23:27)
[2020-05-05] MEDS: POTASSIUM CL 10MEQ/50ML IVPB 50 ML IV SCH (04:09)
[2020-05-05] MEDS: KCL 20 MEQ TAB (K-DUR) PO SCH (04:09)
[2020-05-05 04:12] LABS: CREATININE SERUM 2.28 MG/DL (0.60-1.30)
[2020-05-05 04:14] LABS: MAGNESIUM 1.9 MG/DL (1.6-2.4)
[2020-05-05] MEDS: NOREPINEPHRINE 4 MG/250 ML 250 ML IV SCH ×2 (04:15→08:01)
[2020-05-05] MEDS: ARTIFICIAL TEARS OINT (LACRI-LUBE) 3.5 GM TUBE OU SCH ×6 (04:15→23:37)
[2020-05-05] MEDS: MAGNESIUM 1 GM/100 ML IVPB 100 ML IV SCH (04:16)
--- NOTE | 2020-05-05 05:41 | Pulmonary Progress Note ---
Subjective Time Seen by a Provider: 05:36 Subjective/Events-last exam Pt is sedated on vent. Sepsis Event Evaluation Height, Weight, BMI Height: '" Weight: lbs. oz. kg; 30.11 BMI Method: Focused Exam Lactate Level 05/02/20 14:20: Lactic Acid Level 0.78 05/04/20 05:25: Lactic Acid Level 3.26*H 05/04/20 17:30: Lactic Acid Level 1.24 Exam Exam Vital Signs Date Time Temp Pulse Resp B/P (MAP) Pulse Ox O2 Delivery O2 Flow Rate FiO2 05/05/20 04:56 81 105/57 05/05/20 04:15 86 114/60 05/05/20 03:25 Mechanical Ventilator 50.00 05/05/20 02:08 37.1 81 29 104/60 (75) 96 Mechanical Ventilator 60.00 05/05/20 01:50 74 31 91 50 05/05/20 01:05 Mechanical Ventilator 60.00 05/05/20 01:04 83 133/68 05/05/20 01:00 36.9 80 26 113/64 (80) 87 Mechanical Ventilator 50.00 05/05/20 01:00 80 05/05/20 00:00 36.8 81 26 93/52 (66) 91 Mechanical Ventilator 50.00 05/04/20 23:41 Mechanical Ventilator 50.00 05/04/20 23:35 36.7 26 Mechanical Ventilator 55.00 05/04/20 23:01 77 26 91 50 05/04/20 23:00 36.6 78 26 112/60 (77) 91 Mechanical Ventilator 50.00 05/04/20 22:14 77 96/54 05/04/20 22:00 36.4 75 26 106/55 (72) 91 Mechanical Ventilator 50.00 05/04/20 21:00 36.3 72 26 98/56 (70) 93 Mechanical Ventilator 50.00 05/04/20 20:12 68 97/51 05/04/20 20:00 36.1 70 26 92/49 (63) 93 Mechanical Ventilator 50.00 05/04/20 20:00 93 Mechanical Ventilator 50 05/04/20 19:00 36.1 26 Mechanical Ventilator 50.00 05/04/20 19:00 66 26 109/55 (73) 100 Mechanical Ventilator 50.00 05/04/20 19:00 66 1/19/21 18:52 69 26 92 50 05/04/20 18:29 68 111/53 05/04/20 18:00 70 26 101/53 (69) 92 Mechanical Ventilator 50.00 05/04/20 17:00 68 26 111/53 (72) 93 Mechanical Ventilator 50.00 05/04/20 16:00 70 26 114/50 (71) 92 Mechanical Ventilator 50.00 05/04/20 15:37 114/55 05/04/20 15:16 35.2 05/04/20 15:00 71 26 111/49 (69) 92 Mechanical Ventilator 50.00 05/04/20 14:35 130/57 05/04/20 14:13 68 24 93 50 05/04/20 14:00 69 24 144/52 (82) 93 Mechanical Ventilator 50.00 05/04/20 13:00 70 24 132/50 (77) 92 Mechanical Ventilator 50.00 05/04/20 12:32 73 05/04/20 12:00 74 24 110/48 (68) 91 Mechanical Ventilator 50.00 05/04/20 11:32 35.9 05/04/20 11:26 75 99/43 05/04/20 11:02 05/04/20 11:01 75 102/50 05/04/20 11:00 77 24 83/43 (56) 93 Mechanical Ventilator 50.00 05/04/20 10:20 75 24 93 50 05/04/20 10:00 75 24 95 Mechanical Ventilator 50.00 05/04/20 09:00 78 24 97/64 (75) 94 Mechanical Ventilator 50.00 05/04/20 08:00 85 Mechanical Ventilator 100 05/04/20 08:00 77 24 87/55 (66) 94 Mechanical Ventilator 50.00 05/04/20 07:29 35.8 05/04/20 07:00 84 24 97/66 (76) 94 Mechanical Ventilator 50.00 05/04/20 06:35 88 05/04/20 06:29 84 24 93 50 05/04/20 06:23 81 98/66 05/04/20 06:14 Mechanical Ventilator 50.00 05/04/20 06:00 80 24 118/69 (85) 97 Mechanical Ventilator 60.00 I & O 05/05/20 07:00 Intake Total 3300 ml Output Total 1680 ml Balance 1620 ml Height & Weight Height: '" Weight: lbs. oz. kg; 30.11 BMI Method: General Appearance: Chronically ill (Anxious) HEENT: PERRL/EOMI, Moist Mucous Membranes; No Scleral Icterus (L), No Scleral Icterus (R) Neck: Limited Range of Motion Respiratory: Crackles (bibasilar), Decreased Breath Sounds, Other (Tachypnea) Cardiovascular: Tachycardia Capillary Refill: Less Than 3 Seconds Extremity: No Pedal Edema Neurologic/Psychiatric: Other (Sedated on vent. ) Skin: Normal Color, Warm/Dry Results Lab Laboratory Tests 05/04/20 02:20 05/05/20 03:20 Assessment/Plan Assessment/Plan Acute respiratory failure due to COVID-19 with ARDS -Vent 350/26/14/ 50% -Propofol 40, Fentanyl 50, Nimbex -Hold Nimbex -EICU managed through the weekend -Nimbex, Fentanyl, propofol 30 -TF per dietary recs - Proning pt -s/p PCT - CXR -reviewed s/p Decadron s/p Convalescent plasma x1 Metabolic acidosis -Give 2 amps of bicarb - Probable acute PE -Pt is on theraputic dose lovenox -Will plan on treating with anticoagulation x 3 mo Pneumonis secondary infection -Brown cultures pending -MRSA swab is negative - eraxis and zosyn Hypotension -Levophed Renal failure -Monitor -Lr is currently 75cc/hr Hypotension -Currently on Levophed -Titrate sedation down Leukocytosis -Brown culture and start Zosyn Elevated LFTs Stable Likely due to COVID Monitor acute on CKD 3 monitor HTN BP well controlled, hold home meds HLD Hypothyroidism Continue home meds DVT ppx: Lovenox - currently theraputic dose RADHA SPICER DO May 05, 2020 05:41
[2020-05-05] MEDS: LACTATED RINGERS 1,000 ML IV SCH ×2 (06:21→19:51)
--- NOTE | 2020-05-05 07:14 | Diagnostic Imaging Report ---
INDICATION: Pneumonia. Comparison with 05/04/2020. FINDINGS: ET tube, NG tube and right PICC line remain in good position. There has been development of moderate atelectasis in the right lung base since previous exam. Persistent 5 lobe alveolar infiltrates remain. IMPRESSION: 1. Developing right basilar atelectasis. 2. Persistent 5 lobe pneumonia. 3. Tubes and lines in good position. Dictated by: Dictated on workstation # [id number]
[2020-05-05] MEDS: CALCIUM ACETATE 667 MG CAP (PHOSLO) PO SCH ×3 (07:54→17:14)
[2020-05-05] MEDS: PANTOPRAZOLE 40 MG (PROTONIX) VIAL IV SCH (07:54)
[2020-05-05] MEDS: ANIDULAFUNGIN INJECTION 100 MG in NS (IVPB) 100 ML IV SCH (07:54)
[2020-05-05] MEDS: ENOXAPARIN 80 MG/0.8 ML (LOVENOX) SYR SC SCH ×2 (07:54→19:52)
[2020-05-05] MEDS: LEVOTHYROXINE 50 MCG (LEVOTHROID) TAB PO SCH (07:54)
[2020-05-05] MEDS: fentaNYL DRIP PRE-MIX 250 ML IV SCH (08:08)
--- NOTE | 2020-05-05 08:09 | Physical Therapy Progress Note ---
Therapy Progress Note Patient is sedated and intubated. PT will continue to monitor patient status. CHELA BUENROSTRO PT May 05, 2020 08:08
--- NOTE | 2020-05-05 08:57 | NUR ---
THIS RN SPOKE WITH PT'S DAUGHTER, LOREN, AND PROVIDED UPDATE.
[2020-05-05 09:29] LABS: ABG BASE EXCESS -8.2 MMOL/L (-2.5-2.5); ABG OXYGEN SATURATION 80 % (94-100); ABG PCO2 49 MMHG (35-45); ABG PO2 51 MMHG (79-93)
[2020-05-05 09:31] LABS: ALLENS TEST ART LINE; INSPIRED O2 40%; VENTILATOR YES
[2020-05-05 09:41] LABS: PATIENT TEMP 36.7
[2020-05-05] MEDS: NOREPINEPHRINE 8 MG/250 ML 250 ML IV SCH ×5 (09:59→23:37)
[2020-05-05] MEDS ORDERED: MEROPENEM 500 MG in WATER (STERILE) FOR INJECTION 10 ML IV SCH (10:00)
--- NOTE | 2020-05-05 15:09 | NUR ---
Note TF is currently being held per Dr. Kaye. Will continue to follow and reassess as pt needs, intake, and status change. S JAIMIE BECKETT, MS RD LD [phone] cell
[2020-05-05] MEDS: MEROPENEM 500 MG in WATER (STERILE) FOR INJECTION 10 ML IV SCH (17:14)
--- NOTE | 2020-05-05 20:00 | NUR ---
Telephone update given to patient daughter Nedra at this time.
[2020-05-05] MEDS ORDERED: DEXTROSE 50% 50 ML (IMS) SYR ONE (23:30)
--- NOTE | 2020-05-05 23:31 | NUR ---
Glucose [address] Shashi Moscoso ICU. Order to give 1/2 amp D50.
[2020-05-06] VITALS (31 sets, daily range): BP systolic 71–129; BP diastolic 45–78
[2020-05-06] MEDS: RT-ALBUTEROL INHALER HFA (VENTOLIN HFA) 18 GM IH SCH ×6 (01:38→22:42)
[2020-05-06] MEDS: fentaNYL DRIP PRE-MIX 250 ML IV SCH ×2 (02:01→18:06)
[2020-05-06] MEDS: MEROPENEM 500 MG in WATER (STERILE) FOR INJECTION 10 ML IV SCH ×3 (02:01→18:08)
[2020-05-06] MEDS: PROPOFOL DRIP (ICU) 100 ML IV SCH ×3 (02:01→18:09)
[2020-05-06 02:29] LABS: BASOPHILS # (AUTO) 0.1 10^3/uL (0.0-0.1); BASOPHILS % (AUTO) 0 % (0-10); EOSINOPHILS % (AUTO) 0 % (0-10); HEMATOCRIT 26 % (40-54); HEMOGLOBIN 8.8 g/dL (13.3-17.7); LYMPHOCYTES # (AUTO) 0.4 10^3/uL (1.0-4.0); LYMPHOCYTES % (AUTO) 3 % (12-44); MEAN CORPUSCULAR HEMOGLOBIN 33 pg (25-34); MEAN CORPUSCULAR HGB CONC 34 g/dL (32-36); MEAN CORPUSCULAR VOLUME 97 fL (80-99); MEAN PLATELET VOLUME 11.2 fL (9.0-12.2); MONOCYTES # (AUTO) 0.8 10^3/uL (0.0-1.0); MONOCYTES % (AUTO) 5 % (0-12); NEUTROPHILS # (AUTO) 13.5 10^3/uL (1.8-7.8); NEUTROPHILS % (AUTO) 84 % (42-75); PLATELET COUNT 145 10^3/uL (130-400); WHITE BLOOD COUNT 16.1 10^3/uL (4.3-11.0)
[2020-05-06 02:30] LABS: ABG BASE EXCESS -8.4 MMOL/L (-2.5-2.5); ABG OXYGEN SATURATION 74 % (94-100); ABG PCO2 52 MMHG (35-45); ABG PO2 49 MMHG (79-93); ABG TCO2 20.2 MMOL/L (21.0-31.0)
[2020-05-06 02:33] LABS: ALLENS TEST ART LINE
[2020-05-06 02:34] LABS: INSPIRED O2 50%; PATIENT TEMP 36.8; VENTILATOR YES
[2020-05-06 02:35] LABS: ABG PH 7.18 (7.37-7.43)
[2020-05-06 02:52] LABS: POTASSIUM 4.5 MMOL/L (3.6-5.0)
[2020-05-06 02:54] LABS: CALCIUM 8.3 MG/DL (8.5-10.1)
[2020-05-06 02:58] LABS: CREATININE SERUM 2.9 MG/DL (0.60-1.30); PHOSPHORUS 6.2 MG/DL (2.3-4.7)
[2020-05-06 03:01] LABS: MAGNESIUM 1.9 MG/DL (1.6-2.4)
[2020-05-06] MEDS: KCL 20 MEQ TAB (K-DUR) PO SCH (03:14)
[2020-05-06] MEDS: inSUlin ASPART (NovoLOG) 1 UNIT/0.01 ML (CHARGE PER UNIT) SC SCH ×4 (03:14→23:41)
[2020-05-06] MEDS: MAGNESIUM 1 GM/100 ML IVPB 100 ML IV SCH (03:14)
[2020-05-06] MEDS: POTASSIUM CL 10MEQ/50ML IVPB 50 ML IV SCH (03:14)
[2020-05-06] MEDS ORDERED: SODIUM BICARB 8.4% 50 MEQ/50 ML VIAL IV ONE (05:00)
[2020-05-06] MEDS ORDERED: LACTATED RINGERS 1,000 ML IV SCH (05:00)
--- NOTE | 2020-05-06 05:04 | Pulmonary Progress Note ---
Subjective Time Seen by a Provider: 04:51 Subjective/Events-last exam Pt is sedated on vent. Sepsis Event Evaluation Height, Weight, BMI Height: '" Weight: lbs. oz. kg; 30.11 BMI Method: Focused Exam Lactate Level 05/04/20 05:25: Lactic Acid Level 3.26*H 05/04/20 17:30: Lactic Acid Level 1.24 Exam Exam Vital Signs Date Time Temp Pulse Resp B/P (MAP) Pulse Ox O2 Delivery O2 Flow Rate FiO2 05/06/20 04:00 36.9 85 26 105/58 (74) 97 Mechanical Ventilator 50.00 05/06/20 03:00 36.8 87 26 110/61 (77) 98 Mechanical Ventilator 50.00 05/06/20 02:54 92 26 96 60 05/06/20 02:01 89 83/49 05/06/20 02:00 36.8 89 26 121/62 (81) 95 Mechanical Ventilator 50.00 05/06/20 01:38 98 26 95 50 05/06/20 01:00 100 05/06/20 01:00 36.8 98 16 102/62 (75) 93 Mechanical Ventilator 50.00 05/06/20 00:00 36.7 98 26 107/63 (78) 93 Mechanical Ventilator 50.00 05/05/20 23:37 99 81/50 05/05/20 23:00 36.6 99 13 108/64 (79) 92 Mechanical Ventilator 50.00 05/05/20 22:00 36.5 98 15 120/69 (86) 92 Mechanical Ventilator 50.00 05/05/20 21:38 98 26 94 50 05/05/20 21:00 36.5 98 26 111/65 (80) 92 Mechanical Ventilator 50.00 05/05/20 20:00 36.5 96 25 108/59 (75) 93 Mechanical Ventilator 50.00 05/05/20 20:00 93 Mechanical Ventilator 50 05/05/20 19:00 100 05/05/20 19:00 36.5 98 26 112/61 (78) 92 Mechanical Ventilator 50.00 05/05/20 19:00 36.5 26 Mechanical Ventilator 50.00 05/05/20 18:58 Mechanical Ventilator 50.00 05/05/20 18:22 97 26 93 50 05/05/20 18:00 36.6 102 26 97/54 (68) 91 Mechanical Ventilator 45.00 05/05/20 17:22 100 110/60 05/05/20 17:11 103 85/48 05/05/20 17:00 36.6 26 89/50 (63) 89 Mechanical Ventilator 45.00 05/05/20 16:00 36.6 105 55 105/55 (72) 70 Mechanical Ventilator 45.00 05/05/20 15:00 36.6 103 26 110/57 (74) 92 Mechanical Ventilator 45.00 05/05/20 14:38 104 26 90 45 05/05/20 14:00 36.6 103 26 115/59 (77) 90 Mechanical Ventilator 45.00 05/05/20 13:00 36.6 99 26 96/67 (77) 91 Mechanical Ventilator 45.00 05/05/20 12:54 101 05/05/20 12:00 36.6 97 27 123/59 (80) 92 Mechanical Ventilator 45.00 05/05/20 11:19 94 32 93 45 05/05/20 11:00 36.7 108 51 108/51 (70) 65 Mechanical Ventilator 45.00 05/05/20 10:44 Mechanical Ventilator 45.00 05/05/20 10:24 101 80/47 05/05/20 10:00 36.7 114 26 146/76 (99) 98 Mechanical Ventilator 55.00 05/05/20 09:59 115 146/76 05/05/20 09:47 Mechanical Ventilator 55.00 05/05/20 09:17 90 78/45 05/05/20 09:00 36.7 91 26 89/48 (62) 92 Mechanical Ventilator 40.00 05/05/20 08:48 36.9 74 96 50 05/05/20 08:01 79 75/40 05/05/20 08:00 95 Mechanical Ventilator 40 05/05/20 08:00 36.7 76 26 103/51 (68) 94 Mechanical Ventilator 40.00 05/05/20 07:54 Mechanical Ventilator 40.00 05/05/20 07:25 74 26 96 50 05/05/20 07:00 36.8 75 29 110/55 (73) 97 Mechanical Ventilator 50.00 05/05/20 06:37 78 05/05/20 06:00 36.9 82 26 103/50 (67) 95 Mechanical Ventilator 50.00 05/05/20 05:00 36.9 81 26 98/52 (67) 97 Mechanical Ventilator 50.00 05/05/20 04:56 81 105/57 I & O 05/06/20 07:00 Intake Total 2805 ml Output Total 830 ml Balance 1975 ml Height & Weight Height: '" Weight: lbs. oz. kg; 30.11 BMI Method: General Appearance: Chronically ill (Anxious) HEENT: PERRL/EOMI, Moist Mucous Membranes; No Scleral Icterus (L), No Scleral Icterus (R) Neck: Limited Range of Motion Respiratory: Crackles (bibasilar), Decreased Breath Sounds, Other (Tachypnea) Cardiovascular: Tachycardia Capillary Refill: Less Than 3 Seconds Extremity: No Pedal Edema Neurologic/Psychiatric: Other (Sedated on vent. ) Skin: Normal Color, Warm/Dry Results Lab Laboratory Tests 05/05/20 03:20 05/06/20 02:14 Assessment/Plan Assessment/Plan Acute respiratory failure due to COVID-19 with ARDS -Vent 400/26/12/ 60% -Propofol 20, Fentanyl 75 -EICU managed pt through the night -TF per dietary recs - Proning pt -s/p PCT - CXR -reviewed s/p Decadron s/p Convalescent plasma x1 -Continue Eraxis Merrem Metabolic acidosis Acute renal failure - worsening with metabolic acidosis and hyperphos -Phos lo started -Give 2 amps of bicarb Probable acute PE -Pt is on theraputic dose lovenox -Will plan on treating with anticoagulation x 3 mo Pneumonis secondary infection -Brown cultures pending -MRSA swab is negative - eraxis and Merrem Hypotension -Levophed Renal failure -Monitor -Lr is currently 75cc/hr Hypotension -Currently on Levophed -Titrate sedation down Leukocytosis -Brown culture and start Zosyn Elevated LFTs Stable Likely due to COVID Monitor acute on CKD 3 monitor HTN BP well controlled, hold home meds HLD Hypothyroidism Continue home meds DVT ppx: Lovenox - currently theraputic dose I called and discussed with family I answered all questions to the best of my ability. I explained what DNR status is. At this time family would like to continue full code status. UPDATE: Called to bedside secondary to hypoxia with sp02 in the 70's with 100% Fi02 and 14 PEEP. RN started bagging. RT also called to room. Pt suctioned and placed back on vent. Sp02 slowly improved. CXR done and reviewed. I called and updated family on patient's very poor prognosis. They want to continue full code status. Critical Care: Critically Ill Patient Time spent with patient (mins): 120 RADHA SPICER DO May 06, 2020 05:04
[2020-05-06] MEDS ORDERED: NS (IVPB) 0 ML ONE (05:08)
[2020-05-06] MEDS: NOREPINEPHRINE 8 MG/250 ML 250 ML IV SCH ×4 (05:21→23:42)
[2020-05-06] MEDS: ARTIFICIAL TEARS OINT (LACRI-LUBE) 3.5 GM TUBE OU SCH ×6 (05:22→23:41)
[2020-05-06] MEDS: HYDROCORTISONE 100 MG/2 ML (Solu-CORTEF) VIAL IV SCH ×3 (05:23→21:57)
[2020-05-06] MEDS: VASOPRESSIN INJECTION 20 UNIT in NS (IVPB) 100 ML IV SCH ×3 (05:24→18:08)
[2020-05-06] MEDS: LACTATED RINGERS 1,000 ML IV SCH ×2 (05:24→18:10)
[2020-05-06] MEDS ORDERED: ROCURONIUM 10 MG/ML 5 ML SYRINGE IV ONE ×2 (06:26→06:30)
--- NOTE | 2020-05-06 06:29 | NUR ---
Patient oxygen saturation down to 79% at this time. Dr Kaye at the bedside.
--- NOTE | 2020-05-06 06:40 | NUR ---
RT to the bedside, this residential mortgage underwriter assisted with patient respirations with ambu bag x 10 minutes. Patient suctioned with copious secretions noted. Patient placed back on the ventilator. Patient oxygen saturation 100% at this time. Dr aKye and RT at the bedside. Stat portable chest x-ray done at this time also.
--- NOTE | 2020-05-06 07:12 | Diagnostic Imaging Report ---
INDICATION: Hypoxia and COVID. Comparison made with prior examination from 05/06/2020 FINDINGS: There is cardiomegaly. There is some venous congestion. There are bibasal infiltrates. There is no pleural effusion or pneumothorax. Lines and tubes are in satisfactory position. IMPRESSION: Persistent bibasal pulmonary infiltrates. Cardiomegaly and some central pulmonary venous congestion. Dictated by: Dictated on workstation # [id number]
[2020-05-06] MEDS ORDERED: ROCURONIUM 10 MG/ML 5 ML SYRINGE IV NR (07:45)
[2020-05-06] MEDS: CISATRACURIUM INJECTION 100 MG in NS (IVPB) 200 ML IV SCH ×5 (07:54→22:01)
--- NOTE | 2020-05-06 08:00 | Diagnostic Imaging Report ---
INDICATION: COVID pneumonia. Comparison made with prior examination from 05/05/2020 FINDINGS: There are bilateral pulmonary infiltrates. There is cardiomegaly. Some underlying venous congestion cannot be excluded. Lines and tubes are in satisfactory position. IMPRESSION: Essentially unchanged bilateral pulmonary infiltrates. Cardiomegaly. Some underlying central pulmonary venous congestion cannot be excluded. Report was faxed to [place] by jennifer at 7:59AM. Dictated by: Dictated on workstation # [id number]
[2020-05-06] MEDS: CALCIUM ACETATE 667 MG CAP (PHOSLO) PO SCH ×3 (08:11→18:14)
[2020-05-06] MEDS: PANTOPRAZOLE 40 MG (PROTONIX) VIAL IV SCH (08:11)
[2020-05-06] MEDS: ANIDULAFUNGIN INJECTION 100 MG in NS (IVPB) 100 ML IV SCH (08:11)
--- NOTE | 2020-05-06 08:11 | Physical Therapy Progress Note ---
Therapy Progress Note Patient is sedated and intubated. PT will continue to monitor patient status. KORI BENAVIDEZ PT May 06, 2020 08:11
[2020-05-06] MEDS: LEVOTHYROXINE 50 MCG (LEVOTHROID) TAB PO SCH (08:12)
--- NOTE | 2020-05-06 08:20 | NUR ---
RENAL DOSED ENOXAPARIN TO 80MG SQ Q24H DUE TO CRCL LESS THAN 30 (SCR 2.9)
--- NOTE | 2020-05-06 09:35 | NUR ---
0740 PT BEING BAGGED BY RT DUE TO LOW OXYGEN READINGS, READINGS NOTED TO BE IN THE 70-80'S. THIS RN NOTIFIED DR SPICER AND ORDERS RECEIVED TO START NIMBEX AND ADDITIONAL DOSE OF ROCORONIUM ORDERED AND GIVEN. 0835 THIS RN REMAINS IN PT'S ROOM AND DAUGHTER IBAN CALLED AND PT REMAINS FULL CODE AT THIS TIME. PT BACK ON VENTILATOR AND SA02 REMAINS LOW. PER DR SPICER ORDERS TO HOLD OFF ON BAGGING PT.
--- NOTE | 2020-05-06 10:50 | NUR ---
Pt's brother in law, Eyal Pat, called requested a Facetime visit with the patient to offer prayer. This Chief Privacy Officer will set up FaceTime visit this morning.
--- NOTE | 2020-05-06 13:00 | NUR ---
Oil House Attendant facilitated FaceTime with pt's brother in law, Eyal Pat. Pt intubated and non-verbal. Eyal offered prayer with the pt and also invited this Oil House Attendant to do the same. Eyal demonstrates understanding of the pt's critical condition and compassion for his family who continue to want all measures taken. He phoned the pt's and asked if they wished to FaceTime or speak with the pt while this Oil House Attendant was present to assist. They requested a phone call. placed the daughter and on speakerphone while Eyal remained connected on the IPad. Following their visit with the pt, [facility] updated the family on pt's condition. The daughter asked if transfer to was possible. RN said this could be discussed with the physician, and discussed possibility that pt may not be stable enough for transfer if a bed is available.
--- NOTE | 2020-05-06 13:30 | NUR ---
CM/SS: Telephone call to [employer] [facility] [phone] - requesting to case picker the oxygen that they delivered to the hospital when pt was to be dismissed. They will pick it up on May 12. Spouse is notified of the request for the oxygen to be case picker and returned.
--- NOTE | 2020-05-06 13:38 | NUR ---
CM/SS: Telephone call to spouse Yoselin - [phone] - checking on her current status. She reports she is doing ok. She reports that she is breathing better. She is told about the oxygen and it being picked up as it was delivered to the hospital when it was thought that pt was going to be dismissed. She is ok with that. She continues to report that God is good and she is hopeful things will change with pt. She has appreciated all of the updates. She is encouraged to call with questions or concerns. She verbalizes understanding.
--- NOTE | 2020-05-06 13:56 | Physical Therapy Progress Note ---
Therapy Progress Note Non skilled PROM in available planes B U/LE. ANA ROQUE PT May 06, 2020 13:55
--- NOTE | 2020-05-06 14:53 | NUR ---
Note TF is still being held at this time. Would recommend restarting TF at 60ml bolus feeds q4h with 30ml free water flushes before/after each bolus. Monitor for tolerance. Will continue to follow and reassess as pt needs, intake, and status change. Radha Wilde, MS RD LD [phone] cell
[2020-05-06] MEDS ORDERED: ALBUMIN 25% 25 GM/100 ML 100 ML IV ONE (19:00)
--- NOTE | 2020-05-06 19:06 | NUR ---
E-ICU NOTIFIED OF DECREASED URINE OUTPUT AWAITING NEW ORDERS TO BE ENTERED.
[2020-05-06] MEDS ORDERED: ENOXAPARIN 80 MG/0.8 ML (LOVENOX) SYR SC SCH (20:00)
[2020-05-07] VITALS (15 sets, daily range): BP systolic 71–173; BP diastolic 45–84
[2020-05-07] MEDS: CISATRACURIUM INJECTION 100 MG in NS (IVPB) 200 ML IV SCH ×3 (01:34→08:30)
[2020-05-07] MEDS: VASOPRESSIN INJECTION 20 UNIT in NS (IVPB) 100 ML IV SCH (01:36)
[2020-05-07] MEDS: LACTATED RINGERS 1,000 ML IV SCH (01:40)
[2020-05-07 02:05] LABS: BASOPHILS % (AUTO) 0 % (0-10); EOSINOPHILS % (AUTO) 0 % (0-10); HEMATOCRIT 24 % (40-54); HEMOGLOBIN 7.9 g/dL (13.3-17.7); LYMPHOCYTES # (AUTO) 0.6 10^3/uL (1.0-4.0); LYMPHOCYTES % (AUTO) 4 % (12-44); MEAN CORPUSCULAR HEMOGLOBIN 32 pg (25-34); MEAN CORPUSCULAR HGB CONC 33 g/dL (32-36); MEAN CORPUSCULAR VOLUME 97 fL (80-99); MEAN PLATELET VOLUME 11.1 fL (9.0-12.2); MONOCYTES # (AUTO) 0.5 10^3/uL (0.0-1.0); MONOCYTES % (AUTO) 3 % (0-12); NEUTROPHILS # (AUTO) 11.2 10^3/uL (1.8-7.8); NEUTROPHILS % (AUTO) 83 % (42-75); PLATELET COUNT 103 10^3/uL (130-400); WHITE BLOOD COUNT 13.6 10^3/uL (4.3-11.0)
[2020-05-07 02:10] LABS: POTASSIUM 4.6 MMOL/L (3.6-5.0)
[2020-05-07 02:11] LABS: ABG OXYGEN SATURATION 99 % (94-100); ABG PCO2 45 MMHG (35-45); ABG PO2 200 MMHG (79-93); ABG TCO2 17.5 MMOL/L (21.0-31.0); CALCIUM 7.8 MG/DL (8.5-10.1)
[2020-05-07 02:13] LABS: ABG PH 7.17 (7.37-7.43); ALLENS TEST ART LINE
[2020-05-07 02:14] LABS: INSPIRED O2 100%; PATIENT TEMP 36.1; VENTILATOR YES
[2020-05-07 02:15] LABS: CREATININE SERUM 2.86 MG/DL (0.60-1.30); PHOSPHORUS 7.1 MG/DL (2.3-4.7)
[2020-05-07 02:17] LABS: MAGNESIUM 1.9 MG/DL (1.6-2.4)
[2020-05-07] MEDS: MEROPENEM 500 MG in WATER (STERILE) FOR INJECTION 10 ML IV SCH ×2 (02:37→10:46)
[2020-05-07] MEDS: PROPOFOL DRIP (ICU) 100 ML IV SCH (02:39)
[2020-05-07] MEDS: ARTIFICIAL TEARS OINT (LACRI-LUBE) 3.5 GM TUBE OU SCH ×2 (04:18→08:04)
[2020-05-07] MEDS: NOREPINEPHRINE 8 MG/250 ML 250 ML IV SCH ×3 (04:18→10:51)
[2020-05-07] MEDS ORDERED: SODIUM BICARBONATE 8.4% VIAL 100 MEQ in 1/2 NS IV SOLUTION 1,000 ML IV SCH (04:45)
[2020-05-07] MEDS ORDERED: SODIUM BICARB 8.4% 50 MEQ/50 ML VIAL IV ONE (04:45)
--- NOTE | 2020-05-07 04:49 | Pulmonary Progress Note ---
Subjective Time Seen by a Provider: 04:44 Sepsis Event Evaluation Height, Weight, BMI Height: '" Weight: lbs. oz. kg; 30.11 BMI Method: Focused Exam Lactate Level 05/04/20 05:25: Lactic Acid Level 3.26*H 05/04/20 17:30: Lactic Acid Level 1.24 Exam Exam Vital Signs Date Time Temp Pulse Resp B/P (MAP) Pulse Ox O2 Delivery O2 Flow Rate FiO2 05/07/20 02:39 71 152/76 05/07/20 01:36 73 145/73 05/07/20 01:00 73 05/06/20 23:00 36.3 80 28 128/73 (91) 98 Mechanical Ventilator 100.00 05/06/20 22:42 76 28 95 100 05/06/20 22:00 36.4 77 28 129/74 (92) 98 Mechanical Ventilator 100.00 05/06/20 21:00 36.5 82 28 127/74 (91) 99 Mechanical Ventilator 100.00 05/06/20 20:23 97 Mechanical Ventilator 100 05/06/20 20:00 36.6 70 28 122/74 (90) 96 Mechanical Ventilator 100.00 05/06/20 19:00 36.5 76 28 126/78 (94) 95 Mechanical Ventilator 100.00 05/06/20 19:00 80 05/06/20 18:49 78 28 95 100 05/06/20 18:09 82 100/64 05/06/20 18:08 86 100/64 05/06/20 18:06 82 120/73 05/06/20 18:00 36.5 89 28 106/69 (81) 94 Mechanical Ventilator 100.00 05/06/20 17:00 36.5 80 28 122/75 (91) 94 Mechanical Ventilator 100.00 05/06/20 16:00 36.5 82 28 120/73 (89) 93 Mechanical Ventilator 100.00 05/06/20 15:07 80 28 92 100 05/06/20 15:00 36.5 80 28 99/64 (76) 92 Mechanical Ventilator 100.00 05/06/20 14:00 36.6 78 28 106/67 (80) 97 Mechanical Ventilator 100.00 05/06/20 13:00 36.7 87 28 100/67 (78) 91 Mechanical Ventilator 100.00 05/06/20 12:39 91 05/06/20 12:00 36.8 96 28 106/71 (83) 89 Mechanical Ventilator 100.00 05/06/20 11:35 98 28 88 100 05/06/20 11:22 101 105/71 05/06/20 11:00 36.9 101 28 105/71 (82) 85 Mechanical Ventilator 100.00 05/06/20 10:14 102 108/72 05/06/20 10:00 36.9 103 28 103/70 (81) 83 Mechanical Ventilator 100.00 05/06/20 09:00 36.9 96 28 98/66 (77) 81 Mechanical Ventilator 100.00 05/06/20 08:53 100 05/06/20 08:17 Mechanical Ventilator 100.00 05/06/20 08:00 37.1 102 28 120/69 (86) 87 Mechanical Ventilator 60.00 05/06/20 07:45 80 Mechanical Ventilator 100 05/06/20 07:01 82 28 93 90 05/06/20 07:00 37.1 80 28 105/63 (77) 96 Mechanical Ventilator 60.00 05/06/20 06:56 Mechanical Ventilator 90.00 05/06/20 06:33 95 05/06/20 06:21 Mechanical Ventilator 100.00 05/06/20 06:00 37.0 84 26 106/60 (75) 98 Mechanical Ventilator 60.00 05/06/20 05:24 87 109/61 05/06/20 05:21 86 111/54 05/06/20 05:00 37.0 87 26 111/63 (79) 97 Mechanical Ventilator 60.00 I & O 05/07/20 07:00 Intake Total 1921 ml Output Total 625 ml Balance 1296 ml Height & Weight Height: '" Weight: lbs. oz. kg; 30.11 BMI Method: General Appearance: Chronically ill (Anxious) HEENT: PERRL/EOMI, Moist Mucous Membranes; No Scleral Icterus (L), No Scleral Icterus (R) Neck: Limited Range of Motion Respiratory: Crackles (bibasilar), Decreased Breath Sounds, Other (Tachypnea) Cardiovascular: Tachycardia Capillary Refill: Less Than 3 Seconds Extremity: No Pedal Edema Neurologic/Psychiatric: Other (Sedated on vent. ) Skin: Normal Color, Warm/Dry Results Lab Laboratory Tests 05/06/20 02:14 05/07/20 01:45 Assessment/Plan Assessment/Plan Acute respiratory failure due to COVID-19 with severe ARDS -Vent 400/26/18/ 100% -Propofol 20, Fentanyl 75, Nimbex -EICU managed pt through the night -TF - Hold secondary to instability - Proning pt -s/p PCT - CXR -reviewed s/p Decadron s/p Convalescent plasma x1 -Continue Eraxis Merrem Acute renal failure - worsening with metabolic acidosis and hyperphos -- CR improved since yesterday -UO is good -Phos lo started --Start Bicarb gtt Probable acute PE -Pt is on theraputic dose lovenox -Will plan on treating with anticoagulation x 3 mo Pneumonis secondary infection - improving leukocytosis -Brown cultures pending -MRSA swab is negative - eraxis and Merrem Hypotension -Levophed Renal failure -Monitor -Lr is currently 75cc/hr Hypotension -Currently on Levophed -Titrate sedation down Leukocytosis- improving -Brown culture and start Zosyn Elevated LFTs Stable Likely due to COVID Monitor acute on CKD 3 monitor HTN BP well controlled, hold home meds HLD Hypothyroidism Continue home meds DVT ppx: Lovenox - currently theraputic dose Pt has very poor prognosis. Family wants to continue full code status. RADHA SPICER DO May 07, 2020 04:49
[2020-05-07] MEDS: POTASSIUM CL 10MEQ/50ML IVPB 50 ML IV SCH (06:30)
[2020-05-07] MEDS: inSUlin ASPART (NovoLOG) 1 UNIT/0.01 ML (CHARGE PER UNIT) SC SCH (06:31)
[2020-05-07] MEDS: MAGNESIUM 1 GM/100 ML IVPB 100 ML IV SCH (06:31)
[2020-05-07] MEDS: KCL 20 MEQ TAB (K-DUR) PO SCH (06:31)
[2020-05-07] MEDS: HYDROCORTISONE 100 MG/2 ML (Solu-CORTEF) VIAL IV SCH (06:31)
[2020-05-07] MEDS: RT-ALBUTEROL INHALER HFA (VENTOLIN HFA) 18 GM IH SCH ×2 (06:45→09:39)
--- NOTE | 2020-05-07 07:19 | Diagnostic Imaging Report ---
INDICATION: COVID positive. Time of exam: 1:32 AM Correlation is made with prior chest from one day earlier. ET tube has tip above the camelia. NG tube passes below the diaphragm. Bilateral infiltrates persist. Heart is enlarged. No significant effusion or pneumothorax is seen. Right upper extremity PICC line has tip overlying the SVC. IMPRESSION: Stable chest and bilateral infiltrates when compared with exam one day earlier. Dictated by: Dictated on workstation # [id number]
--- NOTE | 2020-05-07 07:51 | Physical Therapy Progress Note ---
Therapy Progress Note Patient is sedated and intubated. PT will continue to monitor patient status. KORI BENAVIDEZ PT May 07, 2020 07:51
[2020-05-07] MEDS ORDERED: CALCIUM ACETATE 667 MG CAP (PHOSLO) PO SCH (08:00)
[2020-05-07] MEDS: ANIDULAFUNGIN INJECTION 100 MG in NS (IVPB) 100 ML IV SCH (08:04)
[2020-05-07] MEDS: CALCIUM ACETATE 667 MG CAP (PHOSLO) PO SCH (08:04)
[2020-05-07] MEDS: PANTOPRAZOLE 40 MG (PROTONIX) VIAL IV SCH (08:04)
[2020-05-07] MEDS: LEVOTHYROXINE 50 MCG (LEVOTHROID) TAB PO SCH (08:05)
--- NOTE | 2020-05-07 08:29 | NUR ---
[address] SPICER'S DECISION TO TRANSFER PT, FAMILY IN AGREEMENT, 4575 E-ICU NOTIFIED OF POSSIBLE TRANSFER.
[2020-05-07] MEDS: fentaNYL DRIP PRE-MIX 250 ML IV SCH (10:26)
[2020-05-07] MEDS ORDERED: ANID100V2 IV (10:47)
[2020-05-07] MEDS ORDERED: MERO500V24 IV (10:47)
--- NOTE | 2020-05-07 10:48 | Discharge Summary ---
Diagnosis/Chief Complaint Date of Admission Apr 17, 2020 at 16:47 Date of Discharge Discharge Date: May 07, 2020 Discharge Summary Discharge Physical Examination Allergies: Coded Allergies: Sulfa (Sulfonamide Antibiotics) (Verified Allergy, Unknown, 04/17/20) Vitals & I&Os Vital Signs Date Time Temp Pulse Resp B/P (MAP) Pulse Ox O2 Delivery O2 Flow Rate FiO2 05/07/20 11:46 35.5 77 28 94/48 94 Mechanical Ventilator 70 05/07/20 11:00 70.00 Hospital Course Labs (last 24 hrs) Laboratory Tests 04/17/20 15:20: White Blood Count 10.5, Red Blood Count 3.77L, Hemoglobin 12.2L, Hematocrit 36L, Mean Corpuscular Volume 94, Mean Corpuscular Hemoglobin 32, Mean Corpuscular Hemoglobin Concent 34, Red Cell Distribution Width 12.5, Platelet Count 163, Mean Platelet Volume 10.3, Immature Granulocyte % (Auto) 1, Neutrophils (%) (Auto) 83H, Lymphocytes (%) (Auto) 8L, Monocytes (%) (Auto) 9, Eosinophils (%) (Auto) 0, Basophils (%) (Auto) 0, Neutrophils # (Auto) 8.7H, Lymphocytes # (Auto) 0.8L, Monocytes # (Auto) 0.9, Eosinophils # (Auto) 0.0, Basophils # (Auto) 0.0, Immature Granulocyte # (Auto) 0.1, Neutrophils % (Manual) 83, Lymphocytes % (Manual) 9, Monocytes % (Manual) 8, Clumped Platelets SLIGHT, Blood Morphology Comment NORMAL, D-Dimer 1.23H, Sodium Level 141, Potassium Level 3.6, Chloride Level 108H, Carbon Dioxide Level 21, Anion Gap 12, Blood Urea Nitrogen 25H, Creatinine 1.47H, Estimat Glomerular Filtration Rate 47, BUN/Creatinine Ratio 17, Glucose Level 108H, Calcium Level 9.0, Corrected Calcium 8.9, Total Bilirubin 0.7, Aspartate Amino Transf (AST/SGOT) 84H, Alanine Aminotransferase (ALT/SGPT) 56H, Alkaline Phosphatase 115, C-Reactive Protein High Sensitivity 2.60H, Total Protein 7.9, Albumin 4.1, Procalcitonin 0.07 04/17/20 16:47: Lab Scanned Report Referred Lab Report 04/17/20 19:55: Glucometer 88 1/3/21 03:23: White Blood Count 8.0, Red Blood Count 3.24L, Hemoglobin 10.4L, Hematocrit 31L, Mean Corpuscular Volume 95, Mean Corpuscular Hemoglobin 32, Mean Corpuscular Hemoglobin Concent 34, Red Cell Distribution Width 12.5, Platelet Count 150, Mean Platelet Volume 10.6, Immature Granulocyte % (Auto) 1, Neutrophils (%) (Auto) 80H, Lymphocytes (%) (Auto) 11L, Monocytes (%) (Auto) 8, Eosinophils (%) (Auto) 0, Basophils (%) (Auto) 0, Neutrophils # (Auto) 6.4, Lymphocytes # (Auto) 0.9L, Monocytes # (Auto) 0.6, Eosinophils # (Auto) 0.0, Basophils # (Auto) 0.0, Immature Granulocyte # (Auto) 0.1, Sodium Level 142, Potassium Level 4.0, Chloride Level 110H, Carbon Dioxide Level 22, Anion Gap 10, Blood Urea Nitrogen 27H, Creatinine 1.43H, Estimat Glomerular Filtration Rate 49, BUN/Creatinine Ratio 19, Glucose Level 112H, Calcium Level 8.5, Corrected Calcium 9.0, Total Bilirubin 0.6, Aspartate Amino Transf (AST/SGOT) 109H, Alanine Aminotransferase (ALT/SGPT) 70H, Alkaline Phosphatase 98, Total Protein 6.7, Albumin 3.4 04/18/20 12:19: Glucometer 170H 04/18/20 15:49: Glucometer 150H 04/18/20 19:47: Glucometer 145H 04/19/20 04:41: Glucometer 127H 04/19/20 06:29: White Blood Count 10.0, Red Blood Count 3.10L, Hemoglobin 10.1L, Hematocrit 29L, Mean Corpuscular Volume 95, Mean Corpuscular Hemoglobin 33, Mean Corpuscular Hemoglobin Concent 35, Red Cell Distribution Width 12.3, Platelet Count 160, Mean Platelet Volume 11.1, Sodium Level 141, Potassium Level 3.7, Chloride Level 109H, Carbon Dioxide Level 22, Anion Gap 10, Blood Urea Nitrogen 25H, Creatinine 1.23, Estimat Glomerular Filtration Rate 58, BUN/Creatinine Ratio 20, Glucose Level 127H, Calcium Level 8.7, Corrected Calcium 9.1, Total Bilirubin 0.5, Aspartate Amino Transf (AST/SGOT) 75H, Alanine Aminotransferase (ALT/SGPT) 64H, Alkaline Phosphatase 99, Total Protein 6.9, Albumin 3.5 04/19/20 10:35: Glucometer 175H 04/19/20 16:23: Glucometer 149H 04/19/20 20:46: Glucometer 140H 04/20/20 05:43: Glucometer 122H 04/20/20 11:36: Glucometer 143H 04/20/20 15:28: Glucometer 163H 04/20/20 19:47: Glucometer 155H 04/21/20 06:11: Glucometer 106 04/21/20 06:21: White Blood Count 9.4, Red Blood Count 3.24L, Hemoglobin 10.4L, Hematocrit 31L, Mean Corpuscular Volume 94, Mean Corpuscular Hemoglobin 32, Mean Corpuscular Hemoglobin Concent 34, Red Cell Distribution Width 12.3, Platelet Count 196, Mean Platelet Volume 10.4, Immature Granulocyte % (Auto) 1, Neutrophils (%) (Auto) 88H, Lymphocytes (%) (Auto) 4L, Monocytes (%) (Auto) 7, Eosinophils (%) (Auto) 0, Basophils (%) (Auto) 0, Neutrophils # (Auto) 8.2H, Lymphocytes # (Auto) 0.4L, Monocytes # (Auto) 0.7, Eosinophils # (Auto) 0.0, Basophils # (Auto) 0.0, Immature Granulocyte # (Auto) 0.1, Sodium Level 144, Potassium Level 3.9, Chloride Level 113H, Carbon Dioxide Level 24, Anion Gap 7, Blood Urea Nitrogen 40H, Creatinine 1.32H, Estimat Glomerular Filtration Rate 54, BUN/Creatinine Ratio 30, Glucose Level 115H, Calcium Level 8.4L, Corrected Calcium 9.0, Total Bilirubin 0.5, Aspartate Amino Transf (AST/SGOT) 104H, Alanine Aminotransferase (ALT/SGPT) 119H, Alkaline Phosphatase 111, Total Protein 6.7, Albumin 3.3 04/21/20 11:26: Glucometer 152H 04/21/20 16:21: Glucometer 113H 04/21/20 19:54: Glucometer 171H 04/22/20 05:23: Glucometer 102 04/22/20 06:17: White Blood Count 10.2, Red Blood Count 3.35L, Hemoglobin 10.8L, Hematocrit 33L, Mean Corpuscular Volume 99, Mean Corpuscular Hemoglobin 32, Mean Corpuscular Hemoglobin Concent 33, Red Cell Distribution Width 12.4, Platelet Count 229, Mean Platelet Volume 11.7, Immature Granulocyte % (Auto) 1, Neutrophils (%) (Auto) 88H, Lymphocytes (%) (Auto) 5L, Monocytes (%) (Auto) 6, Eosinophils (%) (Auto) 0, Basophils (%) (Auto) 0, Neutrophils # (Auto) 9.0H, Lymphocytes # (Auto) 0.5L, Monocytes # (Auto) 0.6, Eosinophils # (Auto) 0.0, Basophils # (Auto) 0.0, Immature Granulocyte # (Auto) 0.1, D-Dimer 0.52H, Sodium Level 145, Potassium Level 4.1, Chloride Level 114H, Carbon Dioxide Level 18L, Anion Gap 13, Blood Urea Nitrogen 44H, Creatinine 1.32H, Estimat Glomerular Filtration Rate 54, BUN/Creatinine Ratio 33, Glucose Level 101, Calcium Level 8.6, Corrected Calcium 9.1, Total Bilirubin 0.5, Aspartate Amino Transf (AST/SGOT) 102H, Alanine Aminotransferase (ALT/SGPT) 156H, Alkaline Phosphatase 112, Total Protein 6.9, Albumin 3.4, Procalcitonin 0.07 04/22/20 11:08: Glucometer 125H 04/22/20 16:14: Glucometer 110 04/22/20 20:25: Glucometer 132H 04/23/20 04:26: Glucometer 92 04/23/20 06:12: White Blood Count 10.1, Red Blood Count 3.51L, Hemoglobin 11.5L, Hematocrit 34L, Mean Corpuscular Volume 96, Mean Corpuscular Hemoglobin 33, Mean Corpuscular Hemoglobin Concent 34, Red Cell Distribution Width 12.3, Platelet Count 218, Mean Platelet Volume 10.6, Immature Granulocyte % (Auto) 1, Neutrophils (%) (Auto) 88H, Lymphocytes (%) (Auto) 6L, Monocytes (%) (Auto) 5, Eosinophils (%) (Auto) 0, Basophils (%) (Auto) 0, Neutrophils # (Auto) 8.9H, Lymphocytes # (Auto) 0.6L, Monocytes # (Auto) 0.5, Eosinophils # (Auto) 0.0, Basophils # (Auto) 0.0, Immature Granulocyte # (Auto) 0.1, Sodium Level 145, Potassium Level 4.0, Chloride Level 112H, Carbon Dioxide Level 21, Anion Gap 12, Blood Urea Nitrogen 40H, Creatinine 1.27, Estimat Glomerular Filtration Rate 56, BUN/Creatinine Ratio 31, Glucose Level 88, Calcium Level 9.0, Corrected Calcium 9.3, Total Bilirubin 0.6, Aspartate Amino Transf (AST/SGOT) 89H, Alanine Aminotransferase (ALT/SGPT) 163H, Alkaline Phosphatase 118, Total Protein 7.3, Albumin 3.6 04/23/20 10:56: Glucometer 201H 04/23/20 16:04: Glucometer 109 04/23/20 20:46: Glucometer 90 04/24/20 05:19: White Blood Count 7.5, Red Blood Count 3.50L, Hemoglobin 11.3L, Hematocrit 34L, Mean Corpuscular Volume 96, Mean Corpuscular Hemoglobin 32, Mean Corpuscular Hemoglobin Concent 34, Red Cell Distribution Width 12.2, Platelet Count 209, Mean Platelet Volume 11.4, Immature Granulocyte % (Auto) 1, Neutrophils (%) (Auto) 87H, Lymphocytes (%) (Auto) 6L, Monocytes (%) (Auto) 6, Eosinophils (%) (Auto) 0, Basophils (%) (Auto) 0, Neutrophils # (Auto) 6.5, Lymphocytes # (Auto) 0.4L, Monocytes # (Auto) 0.5, Eosinophils # (Auto) 0.0, Basophils # (Auto) 0.0, Immature Granulocyte # (Auto) 0.1, Neutrophils % (Manual) 91, Lymphocytes % (Manual) 3, Monocytes % (Manual) 4, Band Neutrophils 2, Blood Morphology Comment N, Sodium Level 145, Potassium Level 3.9, Chloride Level 112H, Carbon Dioxide Level 21, Anion Gap 12, Blood Urea Nitrogen 34H, Creatinine 1.27, Estimat Glomerular Filtration Rate 56, BUN/Creatinine Ratio 27, Glucose Level 87, Calcium Level 9.0, Corrected Calcium 9.4, Total Bilirubin 0.7, Aspartate Amino Transf (AST/SGOT) 68H, Alanine Aminotransferase (ALT/SGPT) 133H, Alkaline Phosphatase 117, Total Protein 7.3, Albumin 3.5, Procalcitonin 0.09 04/24/20 05:22: Glucometer 86 04/24/20 11:07: Glucometer 197H 04/24/20 16:09: Glucometer 145H 04/24/20 20:51: Glucometer 92 04/25/20 05:05: Glucometer 99 04/25/20 06:08: White Blood Count 10.0, Red Blood Count 3.56L, Hemoglobin 11.6L, Hematocrit 34L, Mean Corpuscular Volume 95, Mean Corpuscular Hemoglobin 33, Mean Corpuscular Hemoglobin Concent 34, Red Cell Distribution Width 12.1, Platelet Count 202, Mean Platelet Volume 10.9, Immature Granulocyte % (Auto) 1, Neutrophils (%) (Auto) 91H, Lymphocytes (%) (Auto) 4L, Monocytes (%) (Auto) 4, Eosinophils (%) (Auto) 0, Basophils (%) (Auto) 0, Neutrophils # (Auto) 9.0H, Lymphocytes # (Auto) 0.4L, Monocytes # (Auto) 0.4, Eosinophils # (Auto) 0.0, Basophils # (Auto) 0.0, Immature Granulocyte # (Auto) 0.1, D-Dimer 0.65H, Sodium Level 145, Potassium Level 3.7, Chloride Level 113H, Carbon Dioxide Level 20L, Anion Gap 12, Blood Urea Nitrogen 36H, Creatinine 1.23, Estimat Glomerular Filtration Rate 58, BUN/Creatinine Ratio 29, Glucose Level 91, Calcium Level 9.1, Corrected Calcium 9.5, Total Bilirubin 0.6, Aspartate Amino Transf (AST/SGOT) 51H, Alanine Aminotransferase (ALT/SGPT) 121H, Alkaline Phosphatase 118, Total Protein 7.4, Albumin 3.5 04/25/20 10:30: Glucometer 197H 04/25/20 15:41: Glucometer 178H 04/25/20 20:23: Glucometer 177H 04/26/20 05:17: Glucometer 106 04/26/20 05:50: Sodium Level 142, Potassium Level 3.7, Chloride Level 112H, Carbon Dioxide Level 19L, Anion Gap 11, Blood Urea Nitrogen 37H, Creatinine 1.32H, Estimat Glomerular Filtration Rate 54, BUN/Creatinine Ratio 28, Glucose Level 109H, Calcium Level 8.6, Corrected Calcium 9.2, Total Bilirubin 0.5, Aspartate Amino Transf (AST/SGOT) 46H, Alanine Aminotransferase (ALT/SGPT) 109H, Alkaline Phosphatase 110, Total Protein 6.9, Albumin 3.2 04/26/20 11:21: Glucometer 262H 04/26/20 15:33: Glucometer 196H 04/26/20 20:33: Glucometer 139H 04/27/20 05:30: D-Dimer 0.76H, Sodium Level 143, Potassium Level 3.8, Chloride Level 112H, Carbon Dioxide Level 20L, Anion Gap 11, Blood Urea Nitrogen 36H, Creatinine 1.33H, Estimat Glomerular Filtration Rate 53, BUN/Creatinine Ratio 27, Glucose Level 90, Calcium Level 8.9, Corrected Calcium 9.5, Total Bilirubin 0.6, Aspartate Amino Transf (AST/SGOT) 62H, Alanine Aminotransferase (ALT/SGPT) 132H, Alkaline Phosphatase 126, Total Protein 7.3, Albumin 3.3, Procalcitonin 0.08 04/27/20 07:15: Blood Gas Puncture Site R RAD, Blood Gas Patient Temperature 100.3, Arterial Blood pH 7.42, Arterial Blood Partial Pressure CO2 34L, Arterial Blood Partial Pressure O2 63L, Arterial Blood HCO3 21L, Arterial Blood Total CO2 22.3, Arterial Blood Oxygen Saturation 91L, Arterial Blood Base Excess -2.3, Christiano Test YES-POS, Blood Gas Ventilator Setting NO, Blood Gas Inspired Oxygen 40L 04/27/20 11:26: Glucometer 128H 04/27/20 15:43: Glucometer 121H 04/27/20 20:03: Glucometer 99 04/28/20 02:38: Blood Gas Puncture Site LEFT RADIAL, Blood Gas Patient Temperature 36.6, Arterial Blood pH 7.40, Arterial Blood Partial Pressure CO2 34L, Arterial Blood Partial Pressure O2 70L, Arterial Blood HCO3 21L, Arterial Blood Total CO2 22.0, Arterial Blood Oxygen Saturation 94, Arterial Blood Base Excess -3.1L, Christiano Test POSITIVE, Blood Gas Ventilator Setting NO, Blood Gas Inspired Oxygen 70 04/28/20 03:10: White Blood Count 12.6H, Red Blood Count 3.75L, Hemoglobin 12.0L, Hematocrit 37L , Mean Corpuscular Volume 100H, Mean Corpuscular Hemoglobin 32, Mean Corpuscular Hemoglobin Concent 32, Red Cell Distribution Width 12.5, Platelet Count 163, Mean Platelet Volume 12.0, Immature Granulocyte % (Auto) 1, Neutrophils (%) (Auto) 93H, Lymphocytes (%) (Auto) 3L, Monocytes (%) (Auto) 3, Eosinophils (%) (Auto) 0, Basophils (%) (Auto) 0, Neutrophils # (Auto) 11.7H, Lymphocytes # (Auto) 0.4L, Monocytes # (Auto) 0.3, Eosinophils # (Auto) 0.0, Basophils # (Auto) 0.0, Immature Granulocyte # (Auto) 0.2H, Sodium Level 144, Potassium Level 4.0, Chloride Level 113H, Carbon Dioxide Level 18L, Anion Gap 13, Blood Urea Nitrogen 36H, Creatinine 1.18, Estimat Glomerular Filtration Rate > 60, BUN/Creatinine Ratio 31, Glucose Level 77, Calcium Level 9.3, Corrected Calcium 9.7, Phosphorus Level 3.0, Magnesium Level 2.5H, Total Bilirubin 0.7, Aspartate Amino Transf (AST/SGOT) 60H, Alanine Aminotransferase (ALT/SGPT) 131H, Alkaline Phosphatase 137H, Total Protein 7.9, Albumin 3.5 04/28/20 05:20: Lactic Acid Level 1.34 04/28/20 05:30: Urine Color YELLOW, Urine Clarity CLEAR, Urine pH 6.0, Urine Specific [place] 1.025H, Urine Protein 1+H, Urine Glucose (UA) NEGATIVE, Urine Ketones NEGATIVE, Urine Nitrite NEGATIVE, Urine Bilirubin NEGATIVE, Urine Urobilinogen 2.0, Urine Leukocyte Esterase NEGATIVE, Urine RBC (Auto) NEGATIVE, Urine RBC NONE, Urine WBC NONE, Urine Squamous Epithelial Cells 0-2, Urine Crystals NONE, Urine Bacteria NEGATIVE, Urine Casts PRESENT, Urine Hyaline Casts 0-2H, Urine Mucus NEGATIVE, Urine Culture Indicated NO 04/28/20 10:40: Glucometer 112H 04/28/20 13:50: Lab Scanned Report Transfusion Reaction Form 04/28/20 15:33: Glucometer 159H 04/28/20 19:35: Glucometer 132H 04/29/20 02:20: White Blood Count 10.0, Red Blood Count 2.92L, Hemoglobin 9.4#L, Hematocrit 28L, Mean Corpuscular Volume 96, Mean Corpuscular Hemoglobin 32, Mean Corpuscular Hemoglobin Concent 34, Red Cell Distribution Width 12.4, Platelet Count 182, Mean Platelet Volume 11.3, Immature Granulocyte % (Auto) 1, Neutrophils (%) (Auto) 95H, Lymphocytes (%) (Auto) 2L, Monocytes (%) (Auto) 3, Eosinophils (%) (Auto) 0, Basophils (%) (Auto) 0, Neutrophils # (Auto) 9.5H, Lymphocytes # (Auto) 0.2L, Monocytes # (Auto) 0.3, Eosinophils # (Auto) 0.0, Basophils # (Au to) 0.0, Immature Granulocyte # (Auto) 0.1, Blood Gas Puncture Site L RAD, Blood Gas Patient Temperature 35.9, Arterial Blood pH 7.41, Arterial Blood Partial Pressure CO2 33L, Arterial Blood Partial Pressure O2 70L, Arterial Blood HCO3 21L, Arterial Blood Total CO2 22.2, Arterial Blood Oxygen Saturation 94, A rterial Blood Base Excess -2.9L, Christiano Test YES-POS, Blood Gas Ventilator Setting NO, Blood Gas Inspired Oxygen 25L, Sodium Level 142, Potassium Level 4.2, Chloride Level 112H, Carbon Dioxide Level 19L, Anion Gap 11, Blood Urea Nitrogen 39H, Creatinine 1.28, Estimat Glomerular Filtration Rate 56, BUN/Creatinine Ratio 30, Glucose Level 112H, Calcium Level 8.6, Corrected Calcium 9.6, Phosphorus Level 3.7, Magnesium Level 2.3, Total Bilirubin 0.7, Aspartate Amino Transf (AST/SGOT) 45H, Alanine Aminotransferase (ALT/SGPT) 101H, Alkaline Phosphatase 128, Total Protein 6.6, Albumin 2.8L 04/29/20 11:17: Glucometer 83 04/29/20 15:18: Glucometer 109 04/29/20 19:04: Glucometer 83 04/29/20 20:30: Glucometer 94 04/30/20 03:00: White Blood Count 14.4H, Red Blood Count 3.23L, Hemoglobin 10.5L, Hematocrit 31L , Mean Corpuscular Volume 95, Mean Corpuscular Hemoglobin 33, Mean Corpuscular Hemoglobin Concent 34, Red Cell Distribution Width 12.5, Platelet Count 198, Mean Platelet Volume 10.6, Immature Granulocyte % (Auto) 1, Neutrophils (%) (Auto) 94H, Lymphocytes (%) (Auto) 3L, Monocytes (%) (Auto) 3, Eosinophils (%) (Auto) 0, Basophils (%) (Auto) 0, Neutrophils # (Auto) 13.5H, Lymphocytes # (Auto) 0.4L, Monocytes # (Auto) 0.4, Eosinophils # (Auto) 0.1, Basophils # (Auto) 0.0, Immature Granulocyte # (Auto) 0.1, Neutrophils % (Manual) 96, Lymphocytes % (Manual) 2, Monocytes % (Manual) 2, Blood Morphology Comment NORMAL, Sodium Level 143, Potassium Level 4.1, Chloride Level 112H, Carbon Dioxide Level 18L, Anion Gap 13, Blood Urea Nitrogen 38H, Creatinine 1.45H, Estimat Glomerular Filtration Rate 48, BUN/Creatinine Ratio 26, Glucose Level 83, Calcium Level 9.3, Corrected Calcium 10.3H, Phosphorus Level 2.7, Magnesium Level 2.0, Total Bilirubin 0.8, Aspartate Amino Transf (AST/SGOT) 59H, Alanine Aminotransferase (ALT/SGPT) 104H, Alkaline Phosphatase 147H, Total Protein 6.7, Albumin 2.8L 04/30/20 10:18: Glucometer 90 04/30/20 15:22: Glucometer 86 04/30/20 19:14: Glucometer 94 04/30/20 21:10: Blood Gas Puncture Site LEFT RADIAL, Blood Gas Patient Temperature 37.9, Arterial Blood pH 7.22*L, Arterial Blood Partial Pressure CO2 60H, Arterial Blood Partial Pressure O2 69L, Arterial Blood HCO3 23, Arterial Blood Total CO2 24.9, Arterial Blood Oxygen Saturation 86L, Arterial Blood Base Excess -3.3L, Christiano Test UNKNOWN, Blood Gas Ventilator Setting YES, Blood Gas Inspired Oxygen 100 04/30/20 23:34: Glucometer 134H 05/01/20 02:40: White Blood Count 22.6H, Red Blood Count 3.05L, Hemoglobin 9.9L, Hematocrit 30L, Mean Corpuscular Volume 99, Mean Corpuscular Hemoglobin 33, Mean Corpuscular Hemoglobin Concent 33, Red Cell Distribution Width 13.2, Platelet Count 230, Mean Platelet Volume 11.0, Immature Granulocyte % (Auto) 2, Neutrophils (%) (Auto) 92H, Lymphocytes (%) (Auto) 4L, Monocytes (%) (Auto) 2, Eosinophils (%) (Auto) 0, Basophils (%) (Auto) 0, Neutrophils # (Auto) 20.8H, Lymphocytes # (Auto) 0.9L, Monocytes # (Auto) 0.4, Eosinophils # (Auto) 0.0, Basophils # (Auto) 0.0, Immature Granulocyte # (Auto) 0.4H, Sodium Level 135, Potassium Level 4.2, Chloride Level 104, Carbon Dioxide Level 18L, Anion Gap 13, Blood Ur ea Nitrogen 35H, Creatinine 1.81H, Estimat Glomerular Filtration Rate 37, BUN/Creatinine Ratio 19, Glucose Level 338H, Calcium Level 7.9L, Corrected Calcium 9.1, Phosphorus Level 6.5H, Magnesium Level 1.9, Total Bilirubin 0.9, Aspartate Amino Transf (AST/SGOT) 48H, Alanine Aminotransferase (ALT/SGPT) 69H, Alkaline Phosphatase 135, Total Protein 6.3L, Albumin 2.5L 05/01/20 02:50: Blood Gas Puncture Site RIGHT RADIAL, Blood Gas Patient Temperature 36, Arterial Blood pH 7.10*L, Arterial Blood Partial Pressure CO2 75*H, Arterial Blood Partial Pressure O2 78L, Arterial Blood HCO3 23, Arterial Blood Total CO2 25.3, Arterial Blood Oxygen Saturation 87L, Arterial Blood Base Excess -5.8L, Hcristiano Test ARTLINE, Blood Gas Ventilator Setting YES, Blood Gas Inspired Oxygen 100 05/01/20 06:22: Glucometer 152H 05/01/20 11:21: Glucometer 124H 05/01/20 17:33: Glucometer 91 05/02/20 00:13: Glucometer 92 05/02/20 02:30: White Blood Count 19.9H, Red Blood Count 2.82L, Hemoglobin 9.1L, Hematocrit 28L, Mean Corpuscular Volume 100H, Mean Corpuscular Hemoglobin 32, Mean Corpuscular Hemoglobin Concent 32, Red Cell Distribution Width 13.2, Platelet Count 153, Mean Platelet Volume 12.1, Immature Granulocyte % (Auto) 2, Neutrophils (%) ( Auto) 93H, Lymphocytes (%) (Auto) 3L, Monocytes (%) (Auto) 1, Eosinophils (%) (Auto) 1, Basophils (%) (Auto) 0, Neutrophils # (Auto) 18.5H, Lymphocytes # (Auto) 0.6L, Monocytes # (Auto) 0.3, Eosinophils # (Auto) 0.2, Basophils # (Auto) 0.0, Immature Granulocyte # (Auto) 0.3H, Blood Gas Puncture Site RIGHT RADIAL, Blood Gas Patient Temperature 36.2, Arterial Blood pH 7.16*L, Arterial Blood Partial Pressure CO2 62H, Arterial Blood Partial Pressure O2 84, Arterial Blood HCO3 21L, Arterial Blood Total CO2 23.3, Arterial Blood Oxygen Saturation 95, Arterial Blood Base Excess -6.3L, Christiano Test POSITIVE, Blood Gas Ventilator Setting YES, Blood Gas Inspired Oxygen 70, Sodium Level 130L, Potassium Level 4.0, Chloride Level 103, Carbon Dioxide Level 17L, Anion Gap 10, Blood Urea Nitrogen 31H, Creatinine 1.83H, Estimat Glomerular Filtration Rate 37, BUN/Creatinine Ratio 17, Glucose Level 339H, Calcium Level 7.3L, Phosphorus Level 4.3, Magnesium Level 1.9 05/02/20 11:01: Glucometer 112H 05/02/20 12:12: Blood Gas Puncture Site LT RAD, Blood Gas Patient Temperature 36.8, Arterial Blood pH 7.16*L, Arterial Blood Partial Pressure CO2 60H, Arterial Blood Partial Pressure O2 87, Arterial Blood HCO3 21L, Arterial Blood Total CO2 22.4, Arterial Blood Oxygen Saturation 95, Arterial Blood Base Excess -6.9L, Christiano Test YES- POS, Blood Gas Ventilator Setting YES, Blood Gas Inspired Oxygen 60% 05/02/20 14:20: Lactic Acid Level 0.78 05/02/20 17:39: Glucometer 126H 05/02/20 23:11: Glucometer 133H 05/03/20 01:48: Blood Gas Puncture Site LEFT RADIAL, Blood Gas Patient Temperature 36, Arterial Blood pH 7.26*L, Arterial Blood Partial Pressure CO2 46H, Arterial Blood Partial Pressure O2 71L, Arterial Blood HCO3 20L, Arterial Blood Total CO2 21.5, Arterial Blood Oxygen Saturation 96, Arterial Blood Base Excess -6.1L, Christiano Test POSITIVE, Blood Gas Ventilator Setting YES, Blood Gas Inspired Oxygen 50 05/03/20 02:00: White Blood Count 15.8H, Red Blood Count 2.62L, Hemoglobin 8.7L, Hematocrit 26L, Mean Corpuscular Volume 97, Mean Corpuscular Hemoglobin 33, Mean Corpuscular Hemoglobin Concent 34, Red Cell Distribution Width 13.0, Platelet Count 148, Mean Platelet Volume 11.3, Immature Granulocyte % (Auto) 2, Neutrophils (%) (Auto) 92H, Lymphocytes (%) (Auto) 4L, Monocytes (%) (Auto) 2, Eosinophils (%) (Auto) 1, Basophils (%) (Auto) 0, Neutrophils # (Auto) 14.5H, Lymphocytes # (Auto) 0.6L, Monocytes # (Auto) 0.4, Eosinophils # (Auto) 0.1, Basophils # (Auto) 0.0, Immature Granulocyte # (Auto) 0.3H, Sodium Level 136, Potassium Level 3.7, Chloride Level 109H, Carbon Dioxide Level 18L, Anion Gap 9, Blood Urea Nitrogen 23H, Creatinine 1.56H, Estimat Glomerular Filtration Rate 44, BUN/Creatinine Ratio 15, Glucose Level 119H, Calcium Level 7.5L, Phosphorus Level 2.9, Magnesium Level 1.9, Procalcitonin 1.31H 05/03/20 05:26: D-Dimer 7.56H 05/03/20 11:29: Glucometer 77 05/03/20 17:14: Glucometer 97 05/03/20 23:11: Glucometer 120H 05/04/20 02:20: White Blood Count 18.5H, Red Blood Count 2.71L, Hemoglobin 8.9L, Hematocrit 27L, Mean Corpuscular Volume 99, Mean Corpuscular Hemoglobin 33, Mean Corpuscular Hemoglobin Concent 33, Red Cell Distribution Width 13.7, Platelet Count 151, Mean Platelet Volume 10.7, Immature Granulocyte % (Auto) 3, Neutrophils (%) (Auto) 91H, Lymphocytes (%) (Auto) 2L, Monocytes (%) (Auto) 3, Eosinophils (%) (Auto) 0, Basophils (%) (Auto) 0, Neutrophils # (Auto) 16.8H, Lymphocytes # (Auto) 0.5L, Monocytes # (Auto) 0.6, Eosinophils # (Auto) 0.0, Basophils # (Auto) 0.0, Immature Granulocyte # (Auto) 0.6H, Sodium Level 134L, Potassium Level 4.6, Chloride Level 107, Carbon Dioxide Level 18L, Anion Gap 9, Blood Urea Nitrogen 22H, Creatinine 2.07H, Estimat Glomerular Filtration Rate 32, BUN/Creatinine Ratio 11, Glucose Level 122H, Calcium Level 7.8L, Phosphorus Level 5.2H, Magnesium Level 1.9 05/04/20 02:24: Blood Gas Puncture Site RIGHT RADIAL, Blood Gas Patient Temperature 36.4, Arterial Blood pH 7.12*L, Arterial Blood Partial Pressure CO2 60H, Arterial Blood Partial Pressure O2 137H, Arterial Blood HCO3 19L, Arterial Blood Total CO2 20.9L, Arterial Blood Oxygen Saturation 98, Arterial Blood Base Excess -8.9L , Christiano Test POSITIVE, Blood Gas Ventilator Setting YES, Blood Gas Inspired Oxygen 90 05/04/20 05:25: Lactic Acid Level 3.26*H 05/04/20 06:45: Blood Gas Puncture Site RIGHT RADIAL, Blood Gas Patient Temperature 35.4, Arterial Blood pH 7.22*L, Arterial Blood Partial Pressure CO2 53H, Arterial Blood Partial Pressure O2 55L, Arterial Blood HCO3 21L, Arterial Blood Total CO2 23.1, Arterial Blood Oxygen Saturation 91L, Arterial Blood Base Excess -5.4L, Christiano Test POSITIVE, Blood Gas Ventilator Setting YES, Blood Gas Inspired Oxygen 50 05/04/20 11:30: Glucometer 108 05/04/20 17:30: Lactic Acid Level 1.24 05/04/20 17:35: Glucometer 140H 05/04/20 23:36: Glucometer 113H 05/05/20 03:20: White Blood Count 13.4H, Red Blood Count 2.52L, Hemoglobin 8.1L, Hematocrit 24L, Mean Corpuscular Volume 96, Mean Corpuscular Hemoglobin 32, Mean Corpuscular Hem oglobin Concent 33, Red Cell Distribution Width 13.8, Platelet Count 136, Mean Platelet Volume 10.9, Immature Granulocyte % (Auto) 3, Neutrophils (%) (Auto) 89H, Lymphocytes (%) (Auto) 3L, Monocytes (%) (Auto) 4, Eosinophils (%) (Auto) 1, Basophils (%) (Auto) 0, Neutrophils # (Auto) 11.9H, Lymphocytes # (Auto) 0.4L , Monocytes # (Auto) 0.5, Eosinophils # (Auto) 0.1, Basophils # (Auto) 0.0, Immature Granulocyte # (Auto) 0.4H, Sodium Level 133L, Potassium Level 3.8, Chloride Level 105, Carbon Dioxide Level 19L, Anion Gap 9, Blood Urea Nitrogen 24H, Creatinine 2.28H, Estimat Glomerular Filtration Rate 29, BUN/Creatinine Ratio 11, Glucose Level 110H, Calcium Level 7.7L, Phosphorus Level 4.0, Magnesium Level 1.9 05/05/20 09:18: Blood Gas Puncture Site ART, Blood Gas Patient Temperature 36.7, Arterial Blood pH 7.20*L, Arterial Blood Partial Pressure CO2 49H, Arterial Blood Partial Pressure O2 51L, Arterial Blood HCO3 19L, Arterial Blood Total CO2 20.0L, Arterial Blood Oxygen Saturation 80L, Arterial Blood Base Excess -8.2L, Christiano Test ART LINE, Blood Gas Ventilator Setting YES, Blood Gas Inspired Oxygen 40% 05/05/20 11:30: Glucometer 111H 05/05/20 17:07: Glucometer 79 05/05/20 23:23: Glucometer 64L 05/06/20 02:14: White Blood Count 16.1H, Red Blood Count 2.71L, Hemoglobin 8.8L, Hematocrit 26L, Mean Corpuscular Volume 97, Mean Corpuscular Hemoglobin 33, Mean Corpuscular Hemoglobin Concent 34, Red Cell Distribution Width 14.5, Platelet Count 145, Mean Platelet Volume 11.2, Immature Granulocyte % (Auto) 8, Neutrophils (%) (Auto) 84H, Lymphocytes (%) (Auto) 3L, Monocytes (%) (Auto) 5, Eosinophils (%) (Auto) 0, Basophils (%) (Auto) 0, Neutrophils # (Auto) 13.5H, Lymphocytes # (Auto) 0.4L, Monocytes # (Auto) 0.8, Eosinophils # (Auto) 0.0, Basophils # (Auto) 0.1, Immature Granulocyte # (Auto) 1.3H, Blood Gas Puncture Site L RAD, Blood Gas Patient Temperature 36.8, Arterial Blood pH 7.18*L, Arterial Blood Partial Pressure CO2 52H, Arterial Blood Partial Pressure O2 49L, Arterial Blood HCO3 19L, Arterial Blood Total CO2 20.2L, Arterial Blood Oxygen Saturation 74L, Arterial Blood Base Excess -8.4L, Christiano Test ART LINE, Blood Gas Ventilator Setting YES, Blood Gas Inspired Oxygen 50%, Sodium Level 134L, Potassium Level 4.5, Chloride Level 105, Carbon Dioxide Level 18L, Anion Gap 11, Blood Urea Nitrogen 30H, Creatinine 2.90#H, Estimat Glomerular Filtration Rate 22, BUN/Creatinine Ratio 10, Glucose Level 85, Calcium Level 8.3L, Phosphorus Level 6.2H, Magnesium Level 1.9 05/06/20 11:21: Glucometer 84 05/06/20 16:50: Glucometer 106 05/06/20 23:23: Glucometer 122H 05/07/20 01:45: White Blood Count 13.6H, Red Blood Count 2.47L, Hemoglobin 7.9L, Hematocrit 24L, Mean Corpuscular Volume 97, Mean Corpuscular Hemoglobin 32, Mean Corpuscular Hemoglobin Concent 33, Red Cell Distribution Width 14.4, Platelet Count 103L, Mean Platelet Volume 11.1, Immature Granulocyte % (Auto) 10, Neutrophils (%) (Auto) 83H, Lymphocytes (%) (Auto) 4L, Monocytes (%) (Auto) 3, Eosinophils (%) (Auto) 0, Basophils (%) (Auto) 0, Neutrophils # (Auto) 11.2H, Lymphocytes # (Auto) 0.6L, Monocytes # (Auto) 0.5, Eosinophils # (Auto) 0.0, Basophils # (Auto) 0.0, Immature Granulocyte # (Auto) 1.3H, Blood Gas Puncture Site LEFT ART LINE, Blood Gas Patient Temperature 36.1, Arterial Blood pH 7.17*L, Arterial Blood Partial Pressure CO2 45, Arterial Blood Partial Pressure O2 200H, Arterial Blood HCO3 16*L, Arterial Blood Total CO2 17.5L, Arterial Blood Oxygen Saturation 99, Arterial Blood Base Excess -11.0L, Christiano Test ART LINE, Blood Gas Ventilator Setting YES, Blood Gas Inspired Oxygen 100%, Sodium Level 134L, Potassium Level 4.6, Chloride Level 104, Carbon Dioxide Level 14L, Anion Gap 16H , Blood Urea Nitrogen 38H, Creatinine 2.86H, Estimat Glomerular Filtration Rate 22, BUN/Creatinine Ratio 13, Glucose Level 121H, Calcium Level 7.8L, Phosphorus Level 7.1H, Magnesium Level 1.9 Microbiology 04/28/20 MRSA Screen - Final, Complete MRSA not isolated 04/28/20 Blood Culture - Final, Complete No growth Pending Labs Microbiology Date/Time Source Procedure Growth Status 04/28/20 12:10 Nasal MRSA Screen - Final MRSA not isolated Complete 04/28/20 05:42 Sputum Expectorated Gram Stain - Final Complete 04/28/20 05:42 Sputum Culture - Final Usual upper respiratory luis YEAST Complete 04/28/20 05:40 Peripheral Rt Ac Blood Culture - Final No growth Complete 04/28/20 05:34 Peripheral Lt Hand Blood Culture - Final No growth Complete 04/28/20 05:20 Peripheral Rt Ac Blood Culture - Final No growth Complete Laboratory Tests 04/17/20 15:20: White Blood Count 10.5, Red Blood Count 3.77, Hemoglobin 12.2, Hematocrit 36, Mean Corpuscular Volume 94, Mean Corpuscular Hemoglobin 32, Mean Corpuscular Hemoglobin Concent 34, Red Cell Distribution Width 12.5, Platelet Count 163, Mean Platelet Volume 10.3, Immature Granulocyte % (Auto) 1, Neutrophils (%) (Auto) 83, Lymphocytes (%) (Auto) 8, Monocytes (%) (Auto) 9, Eosinophils (%) (Auto) 0, Basophils (%) (Auto) 0, Neutrophils # (Auto) 8.7, Lymphocytes # (Auto) 0.8, Monocytes # (Auto) 0.9, Eosinophils # (Auto) 0.0, Basophils # (Auto) 0.0, Immature Granulocyte # (Auto) 0.1, Neutrophils % (Manual) 83, Lymphocytes % (Manual) 9, Monocytes % (Manual) 8, Clumped Platelets SLIGHT, Blood Morphology Comment NORMAL, D-Dimer 1.23, Sodium Level 141, Potassium Level 3.6, Chloride Level 108, Carbon Dioxide Level 21, Anion Gap 12, Blood Urea Nitrogen 25, Creatinine 1.47, Estimat Glomerular Filtration Rate 47, BUN/Creatinine Ratio 17, Glucose Level 108, Calcium Level 9.0, Corrected Calcium 8.9, Total Bilirubin 0.7, Aspartate Amino Transf (AST/SGOT) 84, Alanine Aminotransferase (ALT/SGPT) 56, Alkaline Phosphatase 115, C-Reactive Protein High Sensitivity 2.60, Total Protein 7.9, Albumin 4.1, Procalcitonin 0.07 04/17/20 16:47: Lab Scanned Report Referred Lab Report 04/17/20 19:55: Glucometer 88 04/18/20 03:23: White Blood Count 8.0, Red Blood Count 3.24, Hemoglobin 10.4, Hematocrit 31, Mean Corpuscular Volume 95, Mean Corpuscular Hemoglobin 32, Mean Corpuscular Hemoglobin Concent 34, Red Cell Distribution Width 12.5, Platelet Count 150, Mean Platelet Volume 10.6, Immature Granulocyte % (Auto) 1, Neutrophils (%) (Auto) 80, Lymphocytes (%) (Auto) 11, Monocytes (%) (Auto) 8, Eosinophils (%) (Auto) 0, Basophils (%) (Auto) 0, Neutrophils # (Auto) 6.4, Lymphocytes # (Auto) 0.9, Monocytes # (Auto) 0.6, Eosinophils # (Auto) 0.0, Basophils # (Auto) 0.0, Immature Granulocyte # (Auto) 0.1, Sodium Level 142, Potassium Level 4.0, Chloride Level 110, Carbon Dioxide Level 22, Anion Gap 10, Blood Urea Nitrogen 27, Creatinine 1.43, Estimat Glomerular Filtration Rate 49, BUN/Creatinine Ratio 19, Glucose Level 112, Calcium Level 8.5, Corrected Calcium 9.0, Total Bilirubin 0.6, Aspartate Amino Transf (AST/SGOT) 109, Alanine Aminotransferase (ALT/SGPT) 70, Alkaline Phosphatase 98, Total Protein 6.7, Albumin 3.4 04/18/20 12:19: Glucometer 170 04/18/20 15:49: Glucometer 150 04/18/20 19:47: Glucometer 145 04/19/20 04:41: Glucometer 127 04/19/20 06:29: White Blood Count 10.0, Red Blood Count 3.10, Hemoglobin 10.1, Hematocrit 29, Mean Corpuscular Volume 95, Mean Corpuscular Hemoglobin 33, Mean Corpuscular Hemoglobin Concent 35, Red Cell Distribution Width 12.3, Platelet Count 160, Mean Platelet Volume 11.1, Sodium Level 141, Potassium Level 3.7, Chloride Level 109, Carbon Dioxide Level 22, Anion Gap 10, Blood Urea Nitrogen 25, Creatinine 1.23, Estimat Glomerular Filtration Rate 58, BUN/Creatinine Ratio 20, Glucose Level 127, Calcium Level 8.7, Corrected Calcium 9.1, Total Bilirubin 0.5, Aspa rtate Amino Transf (AST/SGOT) 75, Alanine Aminotransferase (ALT/SGPT) 64, Alkaline Phosphatase 99, Total Protein 6.9, Albumin 3.5 04/19/20 10:35: Glucometer 175 04/19/20 16:23: Glucometer 149 04/19/20 20:46: Glucometer 140 04/20/20 05:43: Glucometer 122 04/20/20 11:36: Glucometer 143 04/20/20 15:28: Glucometer 163 04/20/20 19:47: Glucometer 155 04/21/20 06:11: Glucometer 106 04/21/20 06:21: White Blood Count 9.4, Red Blood Count 3.24, Hemoglobin 10.4, Hematocrit 31, Mean Corpuscular Volume 94, Mean Corpuscular Hemoglobin 32, Mean Corpuscular Hemoglobin Concent 34, Red Cell Distribution Width 12.3, Platelet Count 196, Mean Platelet Volume 10.4, Immature Granulocyte % (Auto) 1, Neutrophils (%) (Auto) 88, Lymphocytes (%) (Auto) 4, Monocytes (%) (Auto) 7, Eosinophils (%) (Auto) 0, Basophils (%) (Auto) 0, Neutrophils # (Auto) 8.2, Lymphocytes # (Auto) 0.4, Monocytes # (Auto) 0.7, Eosinophils # (Auto) 0.0, Basophils # (Auto) 0.0, Immature Granulocyte # (Auto) 0.1, Sodium Level 144, Potassium Level 3.9, Chloride Level 113, Carbon Dioxide Level 24, Anion Gap 7, Blood Urea Nitrogen 40, Creatinine 1.32, Estimat Glomerular Filtration Rate 54, BUN/Creatinine Ratio 30, Glucose Level 115, Calcium Level 8.4, Corrected Calcium 9.0, Total Bilirubin 0.5, Aspartate Amino Transf (AST/SGOT) 104, Alanine Aminotransferase (ALT/SGPT) 119, Alkaline Phosphatase 111, Total Protein 6.7, Albumin 3.3 04/21/20 11:26: Glucometer 152 04/21/20 16:21: Glucometer 113 04/21/20 19:54: Glucometer 171 04/22/20 05:23: Glucometer 102 04/22/20 06:17: White Blood Count 10.2, Red Blood Count 3.35, Hemoglobin 10.8, Hematocrit 33, Mean Corpuscular Volume 99, Mean Corpuscular Hemoglobin 32, Mean Corpuscular Hemoglobin Concent 33, Red Cell Distribution Width 12.4, Platelet Count 229, Mean Platelet Volume 11.7, Immature Granulocyte % (Auto) 1, Neutrophils (%) (Auto) 88, Lymphocytes (%) (Auto) 5, Monocytes (%) (Auto) 6, Eosinophils (%) (Auto) 0, Basophils (%) (Auto) 0, Neutrophils # (Auto) 9.0, Lymphocytes # (Auto) 0.5, Monocytes # (Auto) 0.6, Eosinophils # (Auto) 0.0, Basophils # (Auto) 0.0, Immature Granulocyte # (Auto) 0.1, D-Dimer 0.52, Sodium Level 145, Potassium Level 4.1, Chloride Level 114, Carbon Dioxide Level 18, Anion Gap 13, Blood Urea Nitrogen 44, Creatinine 1.32, Estimat Glomerular Filtration Rate 54, BUN/Creatinine Ratio 33, Glucose Level 101, Calcium Level 8.6, Corrected Calcium 9.1, Total Bilirubin 0.5, Aspartate Amino Transf (AST/SGOT) 102, Alanine Aminotransferase (ALT/SGPT) 156, Alkaline Phosphatase 112, Total Protein 6.9, Albumin 3.4, Procalcitonin 0.07 04/22/20 11:08: Glucometer 125 04/22/20 16:14: Glucometer 110 04/22/20 20:25: Glucometer 132 04/23/20 04:26: Glucometer 92 04/23/20 06:12: White Blood Count 10.1, Red Blood Count 3.51, Hemoglobin 11.5, Hematocrit 34, Mean Corpuscular Volume 96, Mean Corpuscular Hemoglobin 33, Mean Corpuscular Hemoglobin Concent 34, Red Cell Distribution Width 12.3, Platelet Count 218, Mean Platelet Volume 10.6, Immature Granulocyte % (Auto) 1, Neutrophils (%) (Auto) 88, Lymphocytes (%) (Auto) 6, Monocytes (%) (Auto) 5, Eosinophils (%) (Auto) 0, Basophils (%) (Auto) 0, Neutrophils # (Auto) 8.9, Lymphocytes # (Auto) 0.6, Monocytes # (Auto) 0.5, Eosinophils # (Auto) 0.0, Basophils # (Auto) 0.0, Immature Granulocyte # (Auto) 0.1, Sodium Level 145, Potassium Level 4.0, Chloride Level 112, Carbon Dioxide Level 21, Anion Gap 12, Blood Urea Nitrogen 40, Creatinine 1.27, Estimat Glomerular Filtration Rate 56, BUN/Creatinine Ratio 31, Glucose Level 88, Calcium Level 9.0, Corrected Calcium 9.3, Total Bilirubin 0.6, Aspartate Amino Transf (AST/SGOT) 89, Alanine Aminotransferase (ALT/SGPT) 163, Alkaline Phosphatase 118, Total Protein 7.3, Albumin 3.6 04/23/20 10:56: Glucometer 201 04/23/20 16:04: Glucometer 109 04/23/20 20:46: Glucometer 90 04/24/20 05:19: White Blood Count 7.5, Red Blood Count 3.50, Hemoglobin 11.3, Hematocrit 34, Mean Corpuscular Volume 96, Mean Corpuscular Hemoglobin 32, Mean Corpuscular Hemoglobin Concent 34, Red Cell Distribution Width 12.2, Platelet Count 209, Mean Platelet Volume 11.4, Immature Granulocyte % (Auto) 1, Neutrophils (%) (Auto) 87, Lymphocytes (%) (Auto) 6, Monocytes (%) (Auto) 6, Eosinophils (%) (Auto) 0, Basophils (%) (Auto) 0, Neutrophils # (Auto) 6.5, Lymphocytes # (Auto) 0.4, Monocytes # (Auto) 0.5, Eosinophils # (Auto) 0.0, Basophils # (Auto) 0.0, Immature Granulocyte # (Auto) 0.1, Neutrophils % (Manual) 91, Lymphocytes % (Manual) 3, Monocytes % (Manual) 4, Band Neutrophils 2, Blood Morphology Comment N, Sodium Level 145, Potassium Level 3.9, Chloride Level 112, Carbon Dioxide Level 21, Anion Gap 12, Blood Urea Nitrogen 34, Creatinine 1.27, Estimat Glomerular Filtration Rate 56, BUN/Creatinine Ratio 27, Glucose Level 87, Calcium Level 9.0, Corrected Calcium 9.4, Total Bilirubin 0.7, Aspartate Amino Transf (AST/SGOT) 68, Alanine Aminotransferase (ALT/SGPT) 133, Alkaline Phosphatase 117, Total Protein 7.3, Albumin 3.5, Procalcitonin 0.09 04/24/20 05:22: Glucometer 86 04/24/20 11:07: Glucometer 197 04/24/20 16:09: Glucometer 145 04/24/20 20:51: Glucometer 92 04/25/20 05:05: Glucometer 99 04/25/20 06:08: White Blood Count 10.0, Red Blood Count 3.56, Hemoglobin 11.6, Hematocrit 34, Mean Corpuscular Volume 95, Mean Corpuscular Hemoglobin 33, Mean Corpuscular Hemoglobin Concent 34, Red Cell Distribution Width 12.1, Platelet Count 202, Mean Platelet Volume 10.9, Immature Granulocyte % (Auto) 1, Neutrophils (%) (Auto) 91, Lymphocytes (%) (Auto) 4, Monocytes (%) (Auto) 4, Eosinophils (%) (Auto) 0, Basophils (%) (Auto) 0, Neutrophils # (Auto) 9.0, Lymphocytes # (Auto) 0.4, Monocytes # (Auto) 0.4, Eosinophils # (Auto) 0.0, Basophils # (Auto) 0.0, Immature Granulocyte # (Auto) 0.1, D-Dimer 0.65, Sodium Level 145, Potassium Level 3.7, Chloride Level 113, Carbon Dioxide Level 20, Anion Gap 12, Blood Urea Nitrogen 36, Creatinine 1.23, Estimat Glomerular Filtration Rate 58, BUN/Creatinine Ratio 29, Glucose Level 91, Calcium Level 9.1, Corrected Calcium 9.5, Total Bilirubin 0.6, Aspartate Amino Transf (AST/SGOT) 51, Alanine Aminotransferase (ALT/SGPT) 121, Alkaline Phosphatase 118, Total Protein 7.4, Albumin 3.5 04/25/20 10:30: Glucometer 197 04/25/20 15:41: Glucometer 178 04/25/20 20:23: Glucometer 177 04/26/20 05:17: Glucometer 106 04/26/20 05:50: Sodium Level 142, Potassium Level 3.7, Chloride Level 112, Carbon Dioxide Level 19, Anion Gap 11, Blood Urea Nitrogen 37, Creatinine 1.32, Estimat Glomerular Filtration Rate 54, BUN/Creatinine Ratio 28, Glucose Level 109, Calcium Level 8.6, Corrected Calcium 9.2, Total Bilirubin 0.5, Aspartate Amino Transf (AST/SGOT) 46, Alanine Aminotransferase (ALT/SGPT) 109, Alkaline Phosphatase 110, Total Protein 6.9, Albumin 3.2 04/26/20 11:21: Glucometer 262 04/26/20 15:33: Glucometer 196 04/26/20 20:33: Glucometer 139 04/27/20 05:30: D-Dimer 0.76, Sodium Level 143, Potassium Level 3.8, Chloride Level 112, Carbon Dioxide Level 20, Anion Gap 11, Blood Urea Nitrogen 36, Creatinine 1.33, Estimat Glomerular Filtration Rate 53, BUN/Creatinine Ratio 27, Glucose Level 90, Calcium Level 8.9, Corrected Calcium 9.5, Total Bilirubin 0.6, Aspartate Amino Transf (AST/SGOT) 62, Alanine Aminotransferase (ALT/SGPT) 132, Alkaline Phosphatase 126, Total Protein 7.3, Albumin 3.3, Procalcitonin 0.08 04/27/20 07:15: Blood Gas Puncture Site R RAD, Blood Gas Patient Temperature 100.3, Arterial Blood pH 7.42, Arterial Blood Partial Pressure CO2 34, Arterial Blood Partial Pressure O2 63, Arterial Blood HCO3 21, Arterial Blood Total CO2 22.3, Arterial Blood Oxygen Saturation 91, Arterial Blood Base Excess -2.3, Christiano Test YES-POS, Blood Gas Ventilator Setting NO, Blood Gas Inspired Oxygen 40L 04/27/20 11:26: Glucometer 128 04/27/20 15:43: Glucometer 121 04/27/20 20:03: Glucometer 99 04/28/20 02:38: Blood Gas Puncture Site LEFT RADIAL, Blood Gas Patient Temperature 36.6, Arterial Blood pH 7.40, Arterial Blood Partial Pressure CO2 34, Arterial Blood Partial Pressure O2 70, Arterial Blood HCO3 21, Arterial Blood Total CO2 22.0, Arterial Blood Oxygen Saturation 94, Arterial Blood Base Excess -3.1, Christiano Test POSITIVE, Blood Gas Ventilator Setting NO, Blood Gas Inspired Oxygen 70 04/28/20 03:10: White Blood Count 12.6, Red Blood Count 3.75, Hemoglobin 12.0, Hematocrit 37, Mean Corpuscular Volume 100, Mean Corpuscular Hemoglobin 32, Mean Corpuscular Hemoglobin Concent 32, Red Cell Distribution Width 12.5, Platelet Count 163, Mean Platelet Volume 12.0, Immature Granulocyte % (Auto) 1, Neutrophils (%) (A uto) 93, Lymphocytes (%) (Auto) 3, Monocytes (%) (Auto) 3, Eosinophils (%) (Auto) 0, Basophils (%) (Auto) 0, Neutrophils # (Auto) 11.7, Lymphocytes # (Auto) 0.4, Monocytes # (Auto) 0.3, Eosinophils # (Auto) 0.0, Basophils # (Auto) 0.0, Immature Granulocyte # (Auto) 0.2, Sodium Level 144, Potassium Level 4.0, Chloride Level 113, Carbon Dioxide Level 18, Anion Gap 13, Blood Urea Nitrogen 36, Creatinine 1.18, Estimat Glomerular Filtration Rate > 60, BUN/Creatinine Ratio 31, Glucose Level 77, Calcium Level 9.3, Corrected Calcium 9.7, Phosphorus Level 3.0, Magnesium Level 2.5, Total Bilirubin 0.7, Aspartate Amino Transf (AST/SGOT) 60, Alanine Aminotransferase (ALT/SGPT) 131, Alkaline Phosphatase 137, Total Protein 7.9, Albumin 3.5 04/28/20 05:20: Lactic Acid Level 1.34 04/28/20 05:30: Urine Color YELLOW, Urine Clarity CLEAR, Urine pH 6.0, Urine Specific [place] 1.025, Urine Protein 1+, Urine Glucose (UA) NEGATIVE, Urine Ketones NEGATIVE, Urine Nitrite NEGATIVE, Urine Bilirubin NEGATIVE, Urine Urobilinogen 2.0, Urine Leukocyte Esterase NEGATIVE, Urine RBC (Auto) NEGATIVE, Urine RBC NONE, Urine WBC NONE, Urine Squamous Epithelial Cells 0-2, Urine Crystals NONE, Urine Bacteria NEGATIVE, Urine Casts PRESENT, Urine Hyaline Casts 0-2, Urine Mucus NEGATIVE, Urine Culture Indicated NO 04/28/20 10:40: Glucometer 112 04/28/20 13:50: Lab Scanned Report Transfusion Reaction Form 04/28/20 15:33: Glucometer 159 04/28/20 19:35: Glucometer 132 04/29/20 02:20: White Blood Count 10.0, Red Blood Count 2.92, Hemoglobin 9.4, Hematocrit 28, Mean Corpuscular Volume 96, Mean Corpuscular Hemoglobin 32, Mean Corpuscular Hemoglobin Concent 34, Red Cell Distribution Width 12.4, Platelet Count 182, Mean Platelet Volume 11.3, Immature Granulocyte % (Auto) 1, Neutrophils (%) (Auto) 95, Lymphocytes (%) (Auto) 2, Monocytes (%) (Auto) 3, Eosinophils (%) (Auto) 0, Basophils (%) (Auto) 0, Neutrophils # (Auto) 9.5, Lymphocytes # (Auto) 0.2, Monocytes # (Auto) 0.3, Eosinophils # (Auto) 0.0, Basophils # (Auto) 0.0, Immature Granulocyte # (Auto) 0.1, Blood Gas Puncture Site L RAD, Blood Gas Patient Temperature 35.9, Arterial Blood pH 7.41, Arterial Blood Partial Pressu re CO2 33, Arterial Blood Partial Pressure O2 70, Arterial Blood HCO3 21, Arterial Blood Total CO2 22.2, Arterial Blood Oxygen Saturation 94, Arterial Blood Base Excess -2.9, Christiano Test YES-POS, Blood Gas Ventilator Setting NO, Blood Gas Inspired Oxygen 25L, Sodium Level 142, Potassium Level 4.2, Chloride Level 112, Carbon Dioxide Level 19, Anion Gap 11, Blood Urea Nitrogen 39, Cre atinine 1.28, Estimat Glomerular Filtration Rate 56, BUN/Creatinine Ratio 30, Glucose Level 112, Calcium Level 8.6, Corrected Calcium 9.6, Phosphorus Level 3.7, Magnesium Level 2.3, Total Bilirubin 0.7, Aspartate Amino Transf (AST/SGOT) 45, Alanine Aminotransferase (ALT/SGPT) 101, Alkaline Phosphatase 128, Total Protein 6.6, Albumin 2.8 04/29/20 11:17: Glucometer 83 04/29/20 15:18: Glucometer 109 04/29/20 19:04: Glucometer 83 04/29/20 20:30: Glucometer 94 04/30/20 03:00: White Blood Count 14.4, Red Blood Count 3.23, Hemoglobin 10.5, Hematocrit 31, Mean Corpuscular Volume 95, Mean Corpuscular Hemoglobin 33, Mean Corpuscular Hemoglobin Concent 34, Red Cell Distribution Width 12.5, Platelet Count 198, Mean Platelet Volume 10.6, Immature Granulocyte % (Auto) 1, Neutrophils (%) (Auto) 94, Lymphocytes (%) (Auto) 3, Monocytes (%) (Auto) 3, Eosinophils (%) (Auto) 0, Basophils (%) (Auto) 0, Neutrophils # (Auto) 13.5, Lymphocytes # (Auto) 0.4, Monocytes # (Auto) 0.4, Eosinophils # (Auto) 0.1, Basophils # (Auto) 0.0, Immature Granulocyte # (Auto) 0.1, Neutrophils % (Manual) 96, Lymphocytes % (Manual) 2, Monocytes % (Manual) 2, Blood Morphology Comment NORMAL, Sodium Level 143, Potassium Level 4.1, Chloride Level 112, Carbon Dioxide Level 18, Anion Gap 13, Blood Urea Nitrogen 38, Creatinine 1.45, Estimat Glomerular Filtration Rate 48, BUN/Creatinine Ratio 26, Glucose Level 83, Calcium Level 9.3, Corrected Calcium 10.3, Phosphorus Level 2.7, Magnesium Level 2.0, Total Bilirubin 0.8, Aspartate Amino Transf (AST/SGOT) 59, Alanine Aminotransferase (ALT/SGPT) 104, Alkaline Phosphatase 147, Total Protein 6.7, Albumin 2.8 04/30/20 10:18: Glucometer 90 04/30/20 15:22: Glucometer 86 04/30/20 19:14: Glucometer 94 04/30/20 21:10: Blood Gas Puncture Site LEFT RADIAL, Blood Gas Patient Temperature 37.9, Arterial Blood pH 7.22, Arterial Blood Partial Pressure CO2 60, Arterial Blood Partial Pressure O2 69, Arterial Blood HCO3 23, Arterial Blood Total CO2 24.9, Arterial Blood Oxygen Saturation 86, Arterial Blood Base Excess -3.3, Christiano Test UNKNOWN, Blood Gas Ventilator Setting YES, Blood Gas Inspired Oxygen 100 04/30/20 23:34: Glucometer 134 05/01/20 02:40: White Blood Count 22.6, Red Blood Count 3.05, Hemoglobin 9.9, Hematocrit 30, Mean Corpuscular Volume 99, Mean Corpuscular Hemoglobin 33, Mean Corpuscular Hemoglobin Concent 33, Red Cell Distribution Width 13.2, Platelet Count 230, Mean Platelet Volume 11.0, Immature Granulocyte % (Auto) 2, Neutrophils (%) (Auto) 92, Lymphocytes (%) (Auto) 4, Monocytes (%) (Auto) 2, Eosinophils (%) (Auto) 0, Basophils (%) (Auto) 0, Neutrophils # (Auto) 20.8, Lymphocytes # (Auto) 0.9, Monocytes # (Auto) 0.4, Eosinophils # (Auto) 0.0, Basophils # (Auto) 0.0, Immature Granulocyte # (Auto) 0.4, Sodium Level 135, Potassium Level 4.2, Chloride Level 104, Carbon Dioxide Level 18, Anion Gap 13, Blood Urea Nitrogen 35, Creatinine 1.81, Estimat Glomerular Filtration Rate 37, BUN/Creatinine Ratio 19, Glucose Level 338, Calcium Level 7.9, Corrected Calcium 9.1, Phosphorus Level 6.5, Magnesium Level 1.9, Total Bilirubin 0.9, Aspartate Amino Transf (AST/SGOT) 48, Alanine Aminotransferase (ALT/SGPT) 69, Alkaline Phosphatase 135, Total Protein 6.3, Albumin 2.5 05/01/20 02:50: Blood Gas Puncture Site RIGHT RADIAL, Blood Gas Patient Temperature 36, Arterial Blood pH 7.10, Arterial Blood Partial Pressure CO2 75, Arterial Blood Partial Pressure O2 78, Arterial Blood HCO3 23, Arterial Blood Total CO2 25.3, Arterial Blood Oxygen Saturation 87, Arterial Blood Base Excess -5.8, Christiano Test ARTLINE, Blood Gas Ventilator Setting YES, Blood Gas Inspired Oxygen 100 05/01/20 06:22: Glucometer 152 05/01/20 11:21: Glucometer 124 05/01/20 17:33: Glucometer 91 05/02/20 00:13: Glucometer 92 05/02/20 02:30: White Blood Count 19.9, Red Blood Count 2.82, Hemoglobin 9.1, Hematocrit 28, Mean Corpuscular Volume 100, Mean Corpuscular Hemoglobin 32, Mean Corpuscular Hemoglobin Concent 32, Red Cell Distribution Width 13.2, Platelet Count 153, Mean Platelet Volume 12.1, Immature Granulocyte % (Auto) 2, Neutrophils (%) (Auto) 93, Lymphocytes (%) (Auto) 3, Monocytes (%) (Auto) 1, Eosinophils (%) (Auto) 1, Basophils (%) (Auto) 0, Neutrophils # (Auto) 18.5, Lymphocytes # (Auto) 0.6, Monocytes # (Auto) 0.3, Eosinophils # (Auto) 0.2, Basophils # (Auto) 0.0, Immature Granulocyte # (Auto) 0.3, Blood Gas Puncture Site RIGHT RADIAL, Blood Gas Patient Temperature 36.2, Arterial Blood pH 7.16, Arterial Blood Partial Pressure CO2 62, Arterial Blood Partial Pressure O2 84, Arterial Blood HCO3 21, Arterial Blood Total CO2 23.3, Arterial Blood Oxygen Saturation 95, Arterial Blood Base Excess -6.3, Christiano Test POSITIVE, Blood Gas Ventilator Setting YES, Blood Gas Inspired Oxygen 70, Sodium Level 130, Potassium Level 4.0, Chloride Level 103, Carbon Dioxide Level 17, Anion Gap 10, Blood Urea Nitrogen 31, Creatinine 1.83, Estimat Glomerular Filtration Rate 37, BUN/Cre atinine Ratio 17, Glucose Level 339, Calcium Level 7.3, Phosphorus Level 4.3, Magnesium Level 1.9 05/02/20 11:01: Glucometer 112 05/02/20 12:12: Blood Gas Puncture Site LT RAD, Blood Gas Patient Temperature 36.8, Arterial Blood pH 7.16, Arterial Blood Partial Pressure CO2 60, Arterial Blood Partial Pressure O2 87, Arterial Blood HCO3 21, Arterial Blood Total CO2 22.4, Arterial Blood Oxygen Saturation 95, Arterial Blood Base Excess -6.9, Christiano Test YES-POS, Blood Gas Ventilator Setting YES, Blood Gas Inspired Oxygen 60% 05/02/20 14:20: Lactic Acid Level 0.78 05/02/20 17:39: Glucometer 126 05/02/20 23:11: Glucometer 133 05/03/20 01:48: Blood Gas Puncture Site LEFT RADIAL, Blood Gas Patient Temperature 36, Arterial Blood pH 7.26, Arterial Blood Partial Pressure CO2 46, Arterial Blood Partial Pressure O2 71, Arterial Blood HCO3 20, Arterial Blood Total CO2 21.5, Arterial Blood Oxygen Saturation 96, Arterial Blood Base Excess -6.1, Christiano Test POSITIVE, Blood Gas Ventilator Setting YES, Blood Gas Inspired Oxygen 50 05/03/20 02:00: White Blood Count 15.8, Red Blood Count 2.62, Hemoglobin 8.7, Hematocrit 26, Mean Corpuscular Volume 97, Mean Corpuscular Hemoglobin 33, Mean Corpuscular Hemoglobin Concent 34, Red Cell Distribution Width 13.0, Platelet Count 148, Mean Platelet Volume 11.3, Immature Granulocyte % (Auto) 2, Neutrophils (%) (Auto) 92, Lymphocytes (%) (Auto) 4, Monocytes (%) (Auto) 2, Eosinophils (%) (Auto) 1, Basophils (%) (Auto) 0, Neutrophils # (Auto) 14.5, Lymphocytes # (Auto) 0.6, Monocytes # (Auto) 0.4, Eosinophils # (Auto) 0.1, Basophils # (Auto) 0.0, Immature Granulocyte # (Auto) 0.3, Sodium Level 136, Potassium Level 3.7, Chloride Level 109, Carbon Dioxide Level 18, Anion Gap 9, Blood Urea Nitrogen 23, Creatinine 1.56, Estimat Glomerular Filtration Rate 44, BUN/Creatinine Ratio 15, Glucose Level 119, Calcium Level 7.5, Phosphorus Level 2.9, Magnesium Level 1.9, Procalcitonin 1.31 05/03/20 05:26: D-Dimer 7.56 05/03/20 11:29: Glucometer 77 05/03/20 17:14: Glucometer 97 05/03/20 23:11: Glucometer 120 05/04/20 02:20: White Blood Count 18.5, Red Blood Count 2.71, Hemoglobin 8.9, Hematocrit 27, Mean Corpuscular Volume 99, Mean Corpuscular Hemoglobin 33, Mean Corpuscular Hemoglobin Concent 33, Red Cell Distribution Width 13.7, Platelet Count 151, Mean Platelet Volume 10.7, Immature Granulocyte % (Auto) 3, Neutrophils (%) (Auto) 91, Lymphocytes (%) (Auto) 2, Monocytes (%) (Auto) 3, Eosinophils (%) ( Auto) 0, Basophils (%) (Auto) 0, Neutrophils # (Auto) 16.8, Lymphocytes # (Auto) 0.5, Monocytes # (Auto) 0.6, Eosinophils # (Auto) 0.0, Basophils # (Auto) 0.0, Immature Granulocyte # (Auto) 0.6, Sodium Level 134, Potassium Level 4.6, Chloride Level 107, Carbon Dioxide Level 18, Anion Gap 9, Blood Urea Nitrogen 22, Creatinine 2.07, Estimat Glomerular Filtration Rate 32, BUN/Creatinine Ratio 11, Glucose Level 122, Calcium Level 7.8, Phosphorus Level 5.2, Magnesium Level 1.9 05/04/20 02:24: Blood Gas Puncture Site RIGHT RADIAL, Blood Gas Patient Temperature 36.4, Arterial Blood pH 7.12, Arterial Blood Partial Pressure CO2 60, Arterial Blood Partial Pressure O2 137, Arterial Blood HCO3 19, Arterial Blood Total CO2 20.9, Arterial Blood Oxygen Saturation 98, Arterial Blood Base Excess -8.9, Christiano Test POSITIVE, Blood Gas Ventilator Setting YES, Blood Gas Inspired Oxygen 90 05/04/20 05:25: Lactic Acid Level 3.26 05/04/20 06:45: Blood Gas Puncture Site RIGHT RADIAL, Blood Gas Patient Temperature 35.4, Arterial Blood pH 7.22, Arterial Blood Partial Pressure CO2 53, Arterial Blood Partial Pressure O2 55, Arterial Blood HCO3 21, Arterial Blood Total CO2 23.1, Arterial Blood Oxygen Saturation 91, Arterial Blood Base Excess -5.4, Christiano Test POSITIVE, Blood Gas Ventilator Setting YES, Blood Gas Inspired Oxygen 50 05/04/20 11:30: Glucometer 108 05/04/20 17:30: Lactic Acid Level 1.24 05/04/20 17:35: Glucometer 140 05/04/20 23:36: Glucometer 113 05/05/20 03:20: White Blood Count 13.4, Red Blood Count 2.52, Hemoglobin 8.1, Hematocrit 24, Mean Corpuscular Volume 96, Mean Corpuscular Hemoglobin 32, Mean Corpuscular Hemoglobin Concent 33, Red Cell Distribution Width 13.8, Platelet Count 136, Mean Platelet Volume 10.9, Immature Granulocyte % (Auto) 3, Neutrophils (%) (Auto) 89, Lymphocytes (%) (Auto) 3, Monocytes (%) (Auto) 4, Eosinophils (%) (Auto) 1, Basophils (%) (Auto) 0, Neutrophils # (Auto) 11.9, Lymphocytes # (Auto) 0.4, Monocytes # (Auto) 0.5, Eosinophils # (Auto) 0.1, Basophils # (Auto) 0.0, Immature Granulocyte # (Auto) 0.4, Sodium Level 133, Potassium Level 3.8, Chloride Level 105, Carbon Dioxide Level 19, Anion Gap 9, Blood Urea Nitrogen 24, Creatinine 2.28, Estimat Glomerular Filtration Rate 29, BUN/Creatinine Ratio 11, Glucose Level 110, Calcium Level 7.7, Phosphorus Level 4.0, Magnesium Level 1.9 05/05/20 09:18: Blood Gas Puncture Site ART, Blood Gas Patient Temperature 36.7, Arterial Blood pH 7.20, Arterial Blood Partial Pressure CO2 49, Arterial Blood Partial Pressure O2 51, Arterial Blood HCO3 19, Arterial Blood Total CO2 20.0, Arterial Blood Oxygen Saturation 80, Arterial Blood Base Excess -8.2, Christiano Test ART LINE, Blood Gas Ventilator Setting YES, Blood Gas Inspired Oxygen 40% 05/05/20 11:30: Glucometer 111 05/05/20 17:07: Glucometer 79 05/05/20 23:23: Glucometer 64 05/06/20 02:14: White Blood Count 16.1, Red Blood Count 2.71, Hemoglobin 8.8, Hematocrit 26, Mean Corpuscular Volume 97, Mean Corpuscular Hemoglobin 33, Mean Corpuscular Hemoglobin Concent 34, Red Cell Distribution Width 14.5, Platelet Count 145, Mean Platelet Volume 11.2, Immature Granulocyte % (Auto) 8, Neutrophils (%) (Auto) 84, Lymphocytes (%) (Auto) 3, Monocytes (%) (Auto) 5, Eosinophils (%) (Auto) 0, Basophils (%) (Auto) 0, Neutrophils # (Auto) 13.5, Lymphocytes # (Auto) 0.4, Monocytes # (Auto) 0.8, Eosinophils # (Auto) 0.0, Basophils # (Auto) 0.1, Immature Granulocyte # (Auto) 1.3, Blood Gas Puncture Site L RAD, Blood Gas Patient Temperature 36.8, Arterial Blood pH 7.18, Arterial Blood Partial Pressure CO2 52, Arterial Blood Partial Pressure O2 49, Arterial Blood HCO3 19, Arterial Blood Total CO2 20.2, Arterial Blood Oxygen Saturation 74, Arterial Blood Base Excess -8.4, Christiano Test ART LINE, Blood Gas Ventilator Setting YES, Blood Gas Inspired Oxygen 50%, Sodium Level 134, Potassium Level 4.5, Chloride Level 105, Carbon Dioxide Level 18, Anion Gap 11, Blood Urea Nitrogen 30, Creatinine 2.90, Estimat Glomerular Filtration Rate 22, BUN/Creatinine Ratio 10, Glucose Level 85, Calcium Level 8.3, Phosphorus Level 6.2, Magnesium Level 1.9 05/06/20 11:21: Glucometer 84 05/06/20 16:50: Glucometer 106 05/06/20 23:23: Glucometer 122 05/07/20 01:45: White Blood Count 13.6, Red Blood Count 2.47, Hemoglobin 7.9, Hematocrit 24, Me an Corpuscular Volume 97, Mean Corpuscular Hemoglobin 32, Mean Corpuscular Hemoglobin Concent 33, Red Cell Distribution Width 14.4, Platelet Count 103, Mean Platelet Volume 11.1, Immature Granulocyte % (Auto) 10, Neutrophils (%) (Auto) 83, Lymphocytes (%) (Auto) 4, Monocytes (%) (Auto) 3, Eosinophils (%) (Auto) 0, Basophils (%) (Auto) 0, Neutrophils # (Auto) 11.2, Lymphocytes # (Au to) 0.6, Monocytes # (Auto) 0.5, Eosinophils # (Auto) 0.0, Basophils # (Auto) 0.0, Immature Granulocyte # (Auto) 1.3, Blood Gas Puncture Site LEFT ART LINE, Blood Gas Patient Temperature 36.1, Arterial Blood pH 7.17, Arterial Blood Partial Pressure CO2 45, Arterial Blood Partial Pressure O2 200, Arterial Blood HCO3 16, Arterial Blood Total CO2 17.5, Arterial Blood Oxygen Saturation 99, Arterial Blood Base Excess -11.0, Christiano Test ART LINE, Blood Gas Ventilator Setting YES, Blood Gas Inspired Oxygen 100%, Sodium Level 134, Potassium Level 4.6, Chloride Level 104, Carbon Dioxide Level 14, Anion Gap 16, Blood Urea Nitrogen 38, Creatinine 2.86, Estimat Glomerular Filtration Rate 22, BUN/Creatinine Ratio 13, Glucose Level 121, Calcium Level 7.8, Phosphorus Level 7.1, Magnesium Level 1.9 Discharge Home Medications: Active Scripts Active Eraxis (Water Diluent) (Anidulafungin) 100 Mg Vial 100 Mg IV DAILY 4 Days Meropenem 500 Mg Vial 500 Mg IV Q8H 4 Days Reported Aspirin EC (Aspirin) 81 Mg Tablet.dr 81 Mg PO HS Vitamin D3 (Cholecalciferol (Vitamin D3)) 50 Mcg Capsule 50 Mcg PO DAILY Vitamin C (Ascorbic Acid) 500 Mg Tablet 500 Mg PO DAILY Prednisone 10 Mg Tab Mg PO DAILY FILLED 04-15-2020 #24/9 DAY SUPPLY TAPER DIRECTIONS: 4 TABS DAILY X 3 DAYS 3 TABS DAILY X 3 DAYS 1 TAB DAILY X 3 DAYS Azithromycin 500 Mg Tablet 500 Mg PO DAILY FILLED 04-15-2020 #6/5 DAY SUPPLY Levothyroxine Sodium 50 Mcg Tablet 50 Mcg PO DAILY Simvastatin 10 Mg Tablet 10 Mg PO DAILY Hydrochlorothiazide 25 Mg Tablet 25 Mg PO DAILY Lisinopril 10 Mg Tablet 10 Mg PO HS Omeprazole 40 Mg Capsule.dr 80 Mg PO BID TAKES 2 (40M) CAPS Instructions to patient/family Please see electronic discharge instructions given to patient. Clinical Quality Measures DVT/VTE Risk/Contraindication: Risk Factor Score Per Nursin RFS Level Per Nursing on Admit: 2=Moderate CHARLES ECHAVARRIA DO May 07, 2020 10:48
--- NOTE | 2020-05-07 11:23 | NUR ---
CM/SS: Visited with SUMI Pacheco, she has indicated that the pt will be transferred to [facility]. He will also be life flighted to that hospital. Per nurse, family is on board and have been notified. This worker notified Chaplain Payal of the transfer to [place].
--- NOTE | 2020-05-07 11:47 | NUR ---
1130 PT D[facility] NOTIFIED PRIOR TO TRANSFER THAT PT WOULD BE SENT [facility]IA [facility].
== END 2020-05-07 11:30 | DRG 207 ==
LOC: EDUNIT# 14:22 → ER 14:26 → CSD 16:47 → 4TH 04-18 13:07 → ICU 04-27 08:15
PROVIDERS: ADMIT Family Medicine; ATTEND Internal Medicine
PROC: XW13325 Transfusion of Convalescent Plasma (Nonautologous) into Peripheral Vein, Percutaneous Approach, New Technology Group 5 (ICD-10-PCS; 2020-04-23)
PROC: 02HV33Z Insertion of Infusion Device into Superior Vena Cava, Percutaneous Approach (ICD-10-PCS; principal; 2020-04-30)
PROC: 5A1955Z Respiratory Ventilation, Greater than 96 Consecutive Hours (ICD-10-PCS; 2020-04-30)
PROC: 0BH17EZ Insertion of Endotracheal Airway into Trachea, Via Natural or Artificial Opening (ICD-10-PCS; 2020-04-30)
DX: U07.1 COVID-19 (principal); J80 Acute respiratory distress syndrome; I26.99 Other pulmonary embolism without acute cor pulmonale; N17.9 Acute kidney failure, unspecified; E87.2 Acidosis; E78.5 Hyperlipidemia, unspecified; E03.9 Hypothyroidism, unspecified; E83.39 Other disorders of phosphorus metabolism; R74.01 Elevation of levels of liver transaminase levels; R73.9 Hyperglycemia, unspecified; I12.9 Hypertensive chronic kidney disease with stage 1 through stage 4 chronic kidney disease, or unspecified chronic kidney disease; N18.30 Chronic kidney disease, stage 3 unspecified; I95.9 Hypotension, unspecified; D72.829 Elevated white blood cell count, unspecified; E66.9 Obesity, unspecified; Z88.2 Allergy status to sulfonamides; Z79.82 Long term (current) use of aspirin; Z73.0 Burn-out; Z68.37 Body mass index [BMI] 37.0-37.9, adult
CPT/HCPCS: 36415; 36569; 36600; 71045; 71275; 76937; 80048; 80053; 81000; 82805; 82962; 83605; 83735; 84100; 84145; 85007; 85025; 85027; 85379; 86141; 86900; 86901; 87040; 87070; 87081; 87205; 93308; 94002; 94003; 94640; 94660; 94664; 94760; 94761; 94799